=== PATIENT | male | born 1960 | race Caucasian/White ===

== ENCOUNTER → 2019-01-15 | Outpatient (CLI) | payer OTHER ==
[~2019-01-15] MED LIST: ATEN1TAB PO; CATHETER FLUSH 10 ML SYR IV PRN
[2019-01-15 08:07] VITALS: BP 159/87
[2019-01-15 08:11] VITALS: BP 177/87
[2019-01-15 08:16] VITALS: BP 165/92
[2019-01-15 08:17] VITALS: BP 189/99
[2019-01-15 08:20] VITALS: BP 178/99
--- NOTE | 2019-01-15 14:50 | STRESS TEST ---
DATE OF SERVICE: 01/15/2019 NUCLEAR MYOVIEW REPORT REFERRING PHYSICIAN: Brock Clark DO. In summary, the patient was injected with 9.99 mCi of technetium-99 Myoview and the resting images were obtained, with peak stress level, a stress dose of 30.7 mCi of technetium-99 Myoview were injected and the stress images were acquired. The resting and stress images were reviewed and compared in the short axis, horizontal long axis, and vertical long axis views. Review of the images showed diaphragmatic attenuation affecting the quality of the images. There is questionable reversible ischemia involving the mid to apical anterolateral and inferolateral wall. SSS is 8, SDS 6, and TID value 0.93. On the gated images, the left ventricle appeared to be in normal size with normal contractility. Calculated ejection fraction is 67%. CONCLUSION: 1. The patient tolerated Lexiscan well. 2. Diaphragmatic attenuation with questionable ischemia involving the mid to apical anterolateral and inferolateral cortez. 3. Normal left ventricular size with normal contractility. Calculated ejection fraction is 67%. 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
== END ==
LOC: CARD 06:38
PROVIDERS: ATTEND Internal Medicine
DX: I25.10 Atherosclerotic heart disease of native coronary artery without angina pectoris (principal)
CPT/HCPCS: 78452; 93017

== ENCOUNTER 2019-02-14 06:52 | Day surgery (SDC) | payer OTHER ==
[~2019-02-14] VITALS: Ht 180.3 cm; Wt 113.4 kg
[2019-02-14] VITALS (10 sets, daily range): BP systolic 117–162; BP diastolic 82–106
[~2019-02-14 06:52] MED LIST changes: -CATHETER FLUSH 10 ML SYR IV PRN
--- OUTSIDE RECORDS SUMMARY | 2019-02-14 06:57 | XMS REPORT | Continuity of Care Document ---
Author Author [facility] Organization [facility] Address Unknown Phone Unavailable Allergies Active Description Code Type Severity Reaction Onset Reported/Identified Relationship to Patient Clinical Status Yes No Known Drug Allergies [id number] Drug Allergy Unknown N/A 07/31/2014 Medications There is no data. Problems Date Dx Coded Attending Type Code Diagnosis Diagnosed By 08/22/2014 SONALI CANCHOLA DO Ot 726.32 LATERAL EPICONDYLITIS 08/22/2014 SONALI CANCHOLA DO Ot V57.21 ENCOUNTER FOR OCCUPATIONAL THERAPY 12/25/2014 CARLOS GODFREY MD Ot 401.9 HYPERTENSION NOS 12/25/2014 CARLOS GODFREY MD Ot 455.0 INT HEMORRHOID W/O COMPL 12/25/2014 CARLOS GODFREY MD Ot 455.3 EXT HEMORRHOID W/O COMPL 12/25/2014 CARLOS GODFREY MD Ot 562.10 DIVERTICULOSIS COLON (W/O MENT OF HEMORR 12/25/2014 CARLOS GODFREY MD Ot V76.51 SCREEN MAL NEOP-COLON 01/11/2019 CARLOS GODFREY MD Ot V72.84 EXAM PRE-OPERATIVE NOS 01/16/2019 MILLA CENTENO DO Ot I25.10 ATHSCL HEART DISEASE OF [place] CORONARY 02/07/2019 CARLOS GODFREY MD Ot V72.84 EXAM PRE-OPERATIVE NOS 02/07/2019 MILLA CENTENO DO Ot I25.10 ATHSCL HEART DISEASE OF [place] CORONARY Procedures There is no data. Results There is no data. Encounters ACCT No. Visit Date/Time Discharge Status Pt. Type Provider Facility Loc./Unit Complaint [id number] 01/15/2019 06:38:00 01/15/2019 23:59:59 CLS Outpatient MILLA CENTENO DO [facility] CARD ARTERIOSCLEROTIC HEART DISEASE [id number] 12/25/2014 08:26:00 12/25/2014 11:22:00 DIS Outpatient CARLOS GODFREY MD [facility] SDC SCREENING [id number] 12/18/2014 05:54:00 12/18/2014 23:59:59 CLS Outpatient CARLOS GODFREY MD [facility] PREOP SCREENING [id number] 08/15/2014 12:59:00 08/22/2014 13:49:00 DIS Outpatient SONALI CANCHOLA DO [facility] REHAB LEFT LATERAL EPICONDYLITIS [id number] 02/14/2019 08:00:00 PEN Preadmit MARGIE ROYAL, LAURENCE Arreguin [facility] CATH ABN STRESS,CAD,HTN [id number] 12/25/2014 15:55:00 ACT Document Registration
[2019-02-14] MEDS ORDERED: LIDOCAINE 1% INJ 20 ML 20 ML VIAL ONE (06:58)
[2019-02-14] MEDS ORDERED: HEParin 1000 UNIT/ML (10ML VIAL) FOR BOLUS ONE (06:58)
[2019-02-14] MEDS ORDERED: NS IV 1000 ML 1,000 ML IV SCH ×2 (07:00→08:44)
[2019-02-14 07:24] LABS: HEMOGLOBIN 15.6 G/DL (13.3-17.7); MEAN PLATELET VOLUME 9.7 FL (7.4-10.4); RED CELL DISTRIBUTION WIDTH 13.5 % (10.0-14.5); WHITE BLOOD COUNT 7.2 10^3/uL (4.3-11.0)
[2019-02-14 07:26] LABS: BILIRUBIN,URINE NEGATIVE (NEGATIVE); CLARITY,URINE CLEAR; COLOR,URINE YELLOW; GLUCOSE, URINE (UA) NEGATIVE (NEGATIVE); KETONES,URINE NEGATIVE (NEGATIVE); LEUKOCYTE ESTERASE ,URINE 1+ (NEGATIVE); NITRITE,URINE NEGATIVE (NEGATIVE); PH,URINE 6.5 (5-9); PROTEIN,URINE 2+ (NEGATIVE); UROBILINOGEN,URINE 1 MG/DL (NORMAL)
--- NOTE | 2019-02-14 07:27 | Diagnostic Imaging Report ---
INDICATION: Preop. FINDINGS: Portable chest. Lungs are well-aerated and clear. Heart not enlarged. There is no pulmonary edema. No hilar adenopathy. No pneumothorax or pleural effusion. No bony abnormalities. IMPRESSION: Normal portable chest. Dictated by: Dictated on workstation # [id number]
[2019-02-14] MEDS ORDERED: METF-397 PO (07:29)
[2019-02-14] MEDS ORDERED: ATORVASTATIN 5 MG PO (07:29)
[2019-02-14] MEDS ORDERED: MIDAZOLAM 5 MG/5 ML (VERSED) VIAL ONE (07:43)
[2019-02-14] MEDS ORDERED: fentaNYL INJECTION 100 MCG/2 ML AMP ONE (07:44)
[2019-02-14 07:45] LABS: INR 0.9 (0.8-1.4); PROTHROMBIN TIME PATIENT 12.8 SEC (12.2-14.7)
[2019-02-14 07:49] LABS: BACTERIA,URINE NEGATIVE /HPF; SQUAMOUS EPITHELIAL CELL,UR RARE /HPF; WBC,URINE RARE /HPF
[2019-02-14 07:49] LABS: ALANINE AMINOTRANSFERASE 33 U/L (0-55); ALBUMIN 4.4 GM/DL (3.2-4.5); ALKALINE PHOSPHATASE 75 U/L (40-136); BILIRUBIN,TOTAL 0.9 MG/DL (0.1-1.0); BUN/CREATININE RATIO 11; CALCIUM 9.6 MG/DL (8.5-10.1); CARBON DIOXIDE 28 MMOL/L (21-32); CHLORIDE 98 MMOL/L (98-107); CHOLESTEROL 144 MG/DL (< 200); CREATININE SERUM 0.87 MG/DL (0.60-1.30); GFR ESTIMATED > 60; GLUCOSE 115 MG/DL (70-105); HDL CHOLESTEROL 40 MG/DL (40-60); SODIUM 137 MMOL/L (135-145); TOTAL PROTEIN 8.1 GM/DL (6.4-8.2); TRIGLYCERIDES 162 MG/DL (<150); VLDL CHOLESTEROL 32 MG/DL (5-40)
[2019-02-14 07:50] LABS: POTASSIUM 4.1 MMOL/L (3.6-5.0)
--- NOTE | 2019-02-14 07:55 | Cardiac Procedure Note-CS/ASA ---
Pre-Procedure Note Pre-Op Procedure Note H&P Reviewed The H&P was reviewed, patient examined and no changes noted. Date H&P Reviewed: Feb 14, 2019 Time H&P Reviewed: 07:55 Conscious Sedation Pre-Proced Time 07:55 ASA Score 3 For ASA 3 and 4: Consider anesthesia and medical clearance. Also, for patients with a history of failed moderate sedation consider anesthesia. Airway Lungs Heart ASA score ASA 1: a normal healthy patient ASA 2: a patient with a mild systemic disease (mid diabetes, controlled hypertension, obesity x ASA 3: a patient with a severe systemic disease that limits activity (angina , COPD, prior Myocardial infarction) ASA 4: a patient with an incapacitating disease that is a constant threat to life (CHF, renal failure) ASA 5: a moribund patient not expected to survive 24 hrs. (ruptured aneurysm) ASA 6: a declared brain- patient whose organs are being harvested. For emergent operations, add the letter E after the classification Mallampati Classification Grade 3 Sedation Plan Analgesia, Amnesia, Plan communicated to team members, Discussed options with patient/fam, Discussed risks with patient/fam The patient is an appropriate candidate to undergo the planned procedure, sedation, and anesthesia. The patient immediately re-assessed prior to indication. LAURENCE HANSON MD Feb 14, 2019 07:55
[2019-02-14] MEDS ORDERED: PATIENT MAY USE OWN MEDS, ALL PO SCH (08:45)
[2019-02-14] MEDS ORDERED: ASPI-983 PO (08:46)
--- NOTE | 2019-02-14 08:48 | Discharge Inst-Post CATH ---
Discharge Inst-CATH/EP Post Cardiac Cath/EP D/C Inst Follow Up/Plan Hold Metformin for [address] Worthington's office in 2-4 weeks CARDIAC CATH DISCHARGE INSTRUCTIONS *Hold Metformin for 48 hours post heart cath. ACTIVITY * Go Home directly and rest. * Limit activity of the leg (or wrist if it was used) for 7 days including aerobics, swimming, jogging, bicycling, etc. * Restrict stair-climbing for 7 days if possible, if not, climb up with your non -cath leg, then bring together on the same step. * Avoid lifting, pushing, pulling or excessive movement of the affected extremity for 7 days. * Customary sexual activity may be resumed after 2 days-use caution not to use a position that strains or causes pain to the affected extremity. * No driving for 24 hours. * NO SMOKING. * Avoid straining for bowel movements for 7 days. * Gentle walking on level ground is allowed. * Returning to work will depend on the type of procedure and the results. Your doctor will discuss this with you. CALL YOUR DOCTOR FOR ANY OF THE FOLLOWING: *If bleeding from the puncture site occurs- Apply gentle pressure to site with clean cloth and call your doctor or EMS. * If a knot or lump forms under the skin, increases in size, or causes pain. * If bruising appears to be worsening or moving further down your leg instead of disappearing. * Temperature above 101 F. CARE OF YOUR GROIN INCISION; * Bruising or purple discoloration of the skin near the puncture site is common. * You may shower only, no bathtub bathing for 5 days. Be careful to avoid slipping as your leg may feel stiff. * If a closure device was used on your femoral artery, please see the attached guide regarding care of the device and your leg. * Leave the dressing on, until removed by office staff. CARE OF YOUR WRIST INCISION; * Bruising or purple discoloration of the skin near the puncture site is common. * You may shower. * DO NOT submerge wrist. * Leave dressing on, until removed by office staff.. LAURENCE WORTHINGTON MD Feb 14, 2019 08:48
--- NOTE | 2019-02-14 08:53 | Cardiac Cath Report ---
Cardiac Cath Report Physician (s)/Mate Chief (s) Physician LAURENCE HANSON MD Pre-Procedure Diagnosis Pre-Procedure Diagnosis: coronary artery disease Post-Procedure Note Procedure Start Date: Feb 14, 2019 Name of Procedure: left heart catheterization Aortic root angiogram Findings/Procedure Note PROCEDURE NOTE: 58 years old gentleman with history of diabetes mellitus, hyperlipidemia, had an abnormal stress test and scheduled for cardiac catheterization possible PTCA. After explaining the procedure to the patient, all pros and cons were explained , all questions were answered. The patient signed the consent and then he was placed on the cardiac catheterization laboratory. Groin was prepped SL fashion local anesthesia was used. Sheath placed in the right femoral artery. Ta right and left catheter were used to access the coronary system, I had difficulty accessing the right coronary artery, I tried [place] catheter then I reshaped the JR catheter and was able to have subselection of the right coronary artery and angiogram was done. Pigtail was used to access the left ventricular cavity, pullback was done, aortic root angina gram was done. Left ventriculogram was not done, pressure was measured Aortic root angiogram was done At the end of the procedure the sheath was removed. 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 with mild diffuse ectasia at the proximal and midportion with slow flow in the LAD and diagonal system Left Circumflex has mild ectasia with slow flow in the circumflex artery Right Coronory Artery has posterior takeoff required multiple catheterization with catheter modification to be able to evaluate the right coronary artery there is diffuse ectasia in the right coronary artery with slow flow, nonobstructive disease LV Gram was not done pressure was measured Aorta evaluation done with aortic root angiogram which showed normal aortic valve, and normal aortic root and ascending aorta, no dissection or aneurysm CONCLUSION: 1. 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 Normal left ventricular end-diastolic pressure 3. Normal aortic root DISCUSSION AND RECOMMENDATION: Due to the coronary ectasia and the slow flow in the coronary system I recommend aggressive management with lifestyle modification, exercise, keeping LDL under tight control and I started the patient on aspirin Anesthesia Type: Conscious Sedation Estimated blood loss (mL): 15 ml Contrast Amount: 107 ml Total Radiation Dose: 1285 mGy Post-Procedure Diagnosis Post-operative diagnosis: Coronary artery disease Diabetes mellitus Hyperlipidemia Chest pain nonspecific etiology LAURENCE HANSON MD Feb 14, 2019 08:53
== END 2019-02-14 13:25 | disposition home or self-care (01) ==
LOC: CATH 06:52 → SDC 09:08 → CATH 13:25
PROVIDERS: ATTEND Internal Medicine Cardiovascular Disease
DX: I25.10 Atherosclerotic heart disease of native coronary artery without angina pectoris (principal); E11.9 Type 2 diabetes mellitus without complications; E78.2 Mixed hyperlipidemia; R07.9 Chest pain, unspecified; I10 Essential (primary) hypertension; E66.9 Obesity, unspecified; Z82.49 Family history of ischemic heart disease and other diseases of the circulatory system; Z68.34 Body mass index [BMI] 34.0-34.9, adult
CPT/HCPCS: 36415; 71045; 80053; 80061; 81000; 85027; 85610; 85730; 87081; 93458; 93567

== ENCOUNTER 2019-09-09 08:59 | Emergency (ER) | payer OTHER ==
[~2019-09-09] VITALS: Ht 180.3 cm; Wt 113.6 kg
[~2019-09-09 08:59] MED LIST changes: +ASPI-983 PO; +ATORVASTATIN 5 MG PO; +METF-397 PO
[2019-09-09] MEDS ORDERED: LACTATED RINGERS 1,000 ML IV ONE (09:13)
[2019-09-09] MEDS ORDERED: MECLIZINE 25 MG (ANTIVERT) TAB PO ONE (09:15)
[2019-09-09] MEDS ORDERED: ONDANSETRON 4 MG/2 ML (SDV) Z0FRAN IVP ONE (09:15)
[2019-09-09 09:20] LABS: BASOPHILS # (AUTO) 0.1 10^3/uL (0.0-0.1); BASOPHILS % (AUTO) 1 % (0-10); EOSINOPHILS # (AUTO) 0.6 10^3/uL (0.0-0.3); EOSINOPHILS % (AUTO) 6 % (0-10); HEMATOCRIT 41 % (40-54); HEMOGLOBIN 14.5 G/DL (13.3-17.7); LYMPHOCYTES # (AUTO) 4.2 X 10^3 (1.0-4.0); LYMPHOCYTES % (AUTO) 42 % (12-44); MEAN CORPUSCULAR HEMOGLOBIN 31 PG (25-34); MEAN CORPUSCULAR HGB CONC 36 G/DL (32-36); MEAN CORPUSCULAR VOLUME 87 FL (80-99); MEAN PLATELET VOLUME 9.7 FL (7.4-10.4); MONOCYTES # (AUTO) 0.9 X 10^3 (0.0-1.0); MONOCYTES % (AUTO) 9 % (0-12); NEUTROPHILS # (AUTO) 4.2 X 10^3 (1.8-7.8); NEUTROPHILS % (AUTO) 42 % (42-75); PLATELET COUNT 299 10^3/uL (130-400); RED CELL DISTRIBUTION WIDTH 13.2 % (10.0-14.5)
--- NOTE | 2019-09-09 09:27 | ED General ---
General Chief Complaint: Dizziness/Syncope Stated Complaint: DIZZY Source of Information: Patient, EMS, Family Exam Limitations: No Limitations History of Present Illness Date Seen by Provider: Sep 09, 2019 Time Seen by Provider: 09:04 Initial Comments Here with report of waking up at 8:30 AM with severe dizziness that was associated with nausea. Denies breathing problems, chest pain or weakness anywhere. Does have history of hypertension and high cholesterol and he reports that he is prediabetic. Reports taking medications as directed. He follows with Dr. Worthington. Apparently he had heart catheter earlier this year that did not show any blockage but did have significantly slow flow and ectasia throughout. This is requiring medical management that is being followed by Dr. Worthington. He denies dysuria or diarrhea. Last known well time last night when he went to bed around 10 PM. Does report 2 to three-week recent URI with cough Timing/Duration: 1/2 Hour, Other (LKW time 10 PM) Severity: Moderate Associated Systoms: No Chest Pain, No Cough; Diaphoresis; No Fever/Chills; Nausea/Vomiting; No Shortness of Air, No Weakness Allergies and Home Medications Allergies Coded Allergies: No Known Drug Allergies (Unverified , 07/31/14) Home Medications Aspirin 81 Mg Tablet., 81 MG PO DAILY Prescribed by: LAURENCE WORTHINGTON on 02/14/19 0846 Atenolol/Chlorthalidone 1 Tab Tablet, 1 TAB PO DAILY, (Reported) Metformin HCl 500 Mg Tablet, 500 MG PO DAILY, (Reported) [Atorvastatin Ca 5MG] , 5 MG PO DAILY, (Reported) Patient Home Medication List Home Medication List Reviewed: Yes Review of Systems Review of Systems Constitutional: see HPI; No chills, No fever EENTM: No nose congestion, No throat pain Respiratory: cough; No short of breath Cardiovascular: No chest pain, No edema Gastrointestinal: see HPI; No abdominal pain; nausea, vomiting Genitourinary: no symptoms reported Musculoskeletal: no symptoms reported Skin: no symptoms reported Psychiatric/Neurological: See HPI; Denies Headache, Denies Weakness All Other Systems Reviewed Negative Unless Noted: Yes Past Bhmleil-Ydxdsk-Coidqi Hx Past Med/Social Hx: Reviewed Nursing Past Med/Soc Hx Patient Social History Alcohol Use: Denies Use Recreational Drug Use: No Smoking Status: Never a Smoker 2nd Hand Smoke Exposure: No Recent Foreign Travel: No Contact w/Someone Who Travel: No Recent Hopitalizations: No Past Medical History Surgeries: No Respiratory: No Currently Using CPAP: No Currently Using BIPAP: No Cardiac: Yes Hypertension Neurological: No Genitourinary: No Gastrointestinal: No Cancer: No Psychosocial: Yes Family Medical History Reviewed Nursing Family Hx Physical Exam Vital Signs Vital Signs - First Documented 09/09/19 09/09/19 08:59 09:27 Temp 36.0 Pulse 68 Resp 18 B/P (MAP) 168/94 (118) Pulse Ox 96 O2 Delivery Nasal Cannula O2 Flow Rate 2.00 Capillary Refill : Height, Weight, BMI Height: 5'11.00" Weight: 250lbs. 0.0oz. 113.287630oz; 34.9 BMI Method: General Appearance: No Apparent Distress, WD/WN HEENT: PERRL/EOMI, Pharynx Normal, Other (no significant persistent nystagmus) Neck: Non Tender, Supple Respiratory: Lungs Clear, Normal Breath Sounds Cardiovascular: Regular Rate, Rhythm, No Murmur Gastrointestinal: Non Tender, Soft Back: Normal Inspection, No CVA Tenderness, No Vertebral Tenderness Extremity: Normal Range of Motion, Non Tender Neurologic/Psychiatric: Alert, Oriented x3 Skin: Normal Color, Warm/Dry Progress/Results/Core Measures Suspected Sepsis SIRS Temperature: Pulse: Respiratory Rate: Laboratory Tests 09/09/19 09:03: White Blood Count 10.0 Blood Pressure / Mean: Laboratory Tests 09/09/19 09:03: Creatinine 0.84, Platelet Count 299, Total Bilirubin 0.5 09/09/19 09:23: INR Comment 0.9 Results/Orders Lab Results Laboratory Tests Test 09/09/19 09:03 09/09/19 09:23 09/09/19 09:31 09/09/19 10:51 Range/Units White Blood Count 10.0 4.3-11.0 10^3/uL Red Blood Count 4.67 4.35-5.85 10^6/uL Hemoglobin 14.5 13.3-17.7 G/DL Hematocrit 41 40-54 % Mean Corpuscular Volume 87 80-99 FL Mean Corpuscular Hemoglobin 31 25-34 PG Mean Corpuscular Hemoglobin Concent 36 32-36 G/DL Red Cell Distribution Width 13.2 10.0-14.5 % Platelet Count 299 130-400 10^3/uL Mean Platelet Volume 9.7 7.4-10.4 FL Neutrophils (%) (Auto) 42 42-75 % Lymphocytes (%) (Auto) 42 12-44 % Monocytes (%) (Auto) 9 0-12 % Eosinophils (%) (Auto) 6 0-10 % Basophils (%) (Auto) 1 0-10 % Neutrophils # (Auto) 4.2 1.8-7.8 X 10^3 Lymphocytes # (Auto) 4.2 H 1.0-4.0 X 10^3 Monocytes # (Auto) 0.9 0.0-1.0 X 10^3 Eosinophils # (Auto) 0.6 H 0.0-0.3 10^3/uL Basophils # (Auto) 0.1 0.0-0.1 10^3/uL Sodium Level 137 135-145 MMOL/L Potassium Level 3.4 L 3.6-5.0 MMOL/L Chloride Level 98 98-107 MMOL/L Carbon Dioxide Level 26 21-32 MMOL/L Anion Gap 13 5-14 MMOL/L Blood Urea Nitrogen 12 7-18 MG/DL Creatinine 0.84 0.60-1.30 MG/DL Estimat Glomerular Filtration Rate > 60 BUN/Creatinine Ratio 14 Glucose Level 177 H 70-105 MG/DL Calcium Level 9.3 8.5-10.1 MG/DL Corrected Calcium 9.1 8.5-10.1 MG/DL Total Bilirubin 0.5 0.1-1.0 MG/DL Aspartate Amino Transf (AST/SGOT) 27 5-34 U/L Alanine Aminotransferase (ALT/SGPT) 35 0-55 U/L Alkaline Phosphatase 63 40-136 U/L Troponin I < 0.028 <0.028 NG/ML Total Protein 7.1 6.4-8.2 GM/DL Albumin 4.2 3.2-4.5 GM/DL Prothrombin Time 12.4 12.2-14.7 SEC INR Comment 0.9 0.8-1.4 Activated Partial Thromboplast Time 25 24-35 SEC D-Dimer < 0.27 0.00-0.49 UG/ML Glucometer 177 H 70-110 MG/DL Urine Color YELLOW Urine Clarity CLEAR Urine pH 8 5-9 Urine Specific Pearce 1.010 L 1.016-1.022 Urine Protein 2+ H NEGATIVE Urine Glucose (UA) NEGATIVE NEGATIVE Urine Ketones NEGATIVE NEGATIVE Urine Nitrite NEGATIVE NEGATIVE Urine Bilirubin NEGATIVE NEGATIVE Urine Urobilinogen NORMAL NORMAL MG/DL Urine Leukocyte Esterase NEGATIVE NEGATIVE Urine RBC (Auto) NEGATIVE NEGATIVE Urine RBC NONE /HPF Urine WBC NONE /HPF Urine Crystals NONE /LPF Urine Bacteria FEW H /HPF Urine Casts NONE /LPF Urine Mucus NEGATIVE /LPF Urine Culture Indicated NO My Orders Orders - ARIA GARCIA MD Cbc With Automated Diff (09/09/19 09:12) Protime With Inr (09/09/19 09:12) Partial Thromboplastin Time (09/09/19 09:12) Comprehensive Metabolic Panel (09/09/19 09:12) Fibrin Degradation Products (09/09/19 09:12) Troponin I (09/09/19 09:12) Ua Culture If Indicated (09/09/19 09:12) Chest 1 View, Ap/Pa Only (09/09/19 09:12) Ekg Tracing (09/09/19 09:12) Nothing By Mouth (09/09/19 Lunch) Accucheck Stat ONCE (09/09/19 09:12) Ed Iv/Invasive Line Start (09/09/19 09:12) Vital Signs Stroke Patient Q15M (09/09/19 09:12) Ct Head Wo-R/O Stroke (09/09/19 09:12) O2 (09/09/19 09:12) Intake & Output 06,14,22 (09/09/19 09:12) Monitor-Rhythm Ecg Trace Only (09/09/19 09:12) Dysphagia Screening Tool (09/09/19 09:12) Lipid Panel (09/10/19 06:00) Meclizine Tablet (Antivert Tablet) (09/09/19 09:15) Ondansetron Injection (Zofran Injectio (09/09/19 09:15) Ed Iv/Invasive Line Start (09/09/19 09:13) Lactated Ringers (Lr 1000 Ml Iv Solution (09/09/19 09:13) Ct Angio Head/Neck (09/09/19 10:06) Iohexol Injection (Omnipaque 350 Mg/Ml 1 (09/09/19 10:15) Received Contrast (Hold Metformin- Contr (09/09/19 10:15) Sodium Chloride Flush (Catheter Flush Sy (09/09/19 10:15) Ns (Ivpb) (Sodium Chloride 0.9% Ivpb Bag (09/09/19 10:15) Dexamethasone Injection (Decadron Inject (09/09/19 12:00) Medications Given in ED Current Medications Medications Dose Ordered Sig/Michelle Route Start Time Stop Time Status Last Admin Dose Admin Iohexol 100 ml ONCE ONCE IV 09/09/19 10:15 09/09/19 10:16 DC 09/09/19 10:28 75 ML Lactated Ringer's 1,000 ml @ 0 mls/hr Q0M ONCE IV 09/09/19 09:13 09/09/19 09:15 DC 09/09/19 09:22 1,000 MLS/HR Meclizine HCl 25 mg ONCE ONCE PO 09/09/19 09:15 09/09/19 09:16 DC 09/09/19 09:22 25 MG Ondansetron HCl 4 mg ONCE ONCE IVP 09/09/19 09:15 09/09/19 09:16 DC 09/09/19 09:21 4 MG Sodium Chloride 10 ml NEEDED PRN IV 09/09/19 10:15 09/09/19 10:28 10 ML Sodium Chloride 100 ml ONCE ONCE IV 09/09/19 10:15 09/09/19 10:16 DC 09/09/19 10:29 80 ML Vital Signs/I&O 09/09/19 09/09/19 08:59 09:27 Temp 36.0 Pulse 68 Resp 18 B/P (MAP) 168/94 (118) Pulse Ox 96 O2 Delivery Nasal Cannula Nasal Cannula O2 Flow Rate 2.00 2.00 Capillary Refill : Progress Note : Progress Note Seen and evaluated. IV, labs, EKG, chest x-ray and CT head ordered with the [facility] order set. Stroke scale is 0. No indications of TPA currently due to 0 on stroke scale as well as last known well time 10 PM last night. Orders for normal saline 1 L bolus, Zofran 4 mg IV and meclizine 25 mg by mouth after dysphagia screening is passed. Monitor patient. 1015: Doing a little better. We will go ahead and get CT angiogram of the head and neck to rule out vascular concerns and related issues for the dizziness, specifically posterior circulation. This was discussed with patient and family who agree. Monitor patient. 1150: CT angiogram completed and shows no acute findings. Patient is doing much better. He is able to move his head left and right and up and down without setting of significant dizziness. Overall is feeling better. Given the negative workup to this point, this may be more related to inner ear infection. We will go ahead and give Decadron 10 mg IV given that he's had the recent bronchitis. Discharged home with return precautions. Patient and family verbalize understanding instructions and agreement with plan. ECG Initial ECG Impression Date: Sep 09, 2019 Initial ECG Impression Time: 09:03 Initial ECG Rate: 63 Initial ECG Rhythm: Normal Sinus Comment Sinus rhythm with incomplete right bundle branch block. Normal axis. No evidence of ST elevation MO. No previous available for comparison. Interpreted by me. Diagnostic Imaging Diagonstic Imaging: CT Plain Films/CT/US/NM/MRI: head Comments [facility] [place] [place] NAME: WILLIAMRAMA W MED REC#: [id number] PT STATUS: REG ER : 1960 PHYSICIAN: ARIA GARCIA MD ADMIT DATE: 09/09/19/ER Draft Date of Exam:09/09/19 CT HEAD WO-R/O STROKE PROCEDURE: CT head wo r/o stroke. TECHNIQUE: Multiple contiguous axial images were obtained through the brain without the use of intravenous contrast. Auto Exposure Controls were utilized during the CT exam to meet ALARA standards for radiation dose reduction. INDICATION: Dizziness FINDINGS: The ventricles are normal in size, shape and position. There is no acute parenchymal hemorrhage, edema or mass. There is no extra-axial mass or hemorrhage. IMPRESSION: No acute abnormality is seen. Dictated on workstation # [id number] Dict: 09/09/1952 Trans: 09/09/19 0955 [facility] [phone] Interpreted by: MATT GUEVARA MD Electronically signed by: Diagonstic Imaging: Xray Plain Films/CT/US/NM/MRI: chest Comments [facility] [place] NAME: THOMASRAMA MED REC#: [id number] PT STATUS: REG ER : 1960 PHYSICIAN: ARIA GARCIA MD ADMIT DATE: 09/09/19/ER Draft Date of Exam:09/09/19 CHEST 1 VIEW, AP/PA ONLY INDICATION: Dizziness FINDINGS: Upright portable chest shows normal heart size and vascularity. The lungs are clear. There is no effusion or pneumothorax. There is no bony abnormality. IMPRESSION: Normal chest with no change from 02/14/2019. Dictated on workstation # [id number] Dict: 09/09/19953 Trans: 09/09/19954 [facility] [id number] Interpreted by: MATT GUEVARA MD Electronically signed by: Diagonstic Imaging: CT Plain Films/CT/US/NM/MRI: other Comments NAME: RAMA THOMAS [facility] REC#: [id number] PT STATUS: REG ER : 1960 PHYSICIAN: ARIA GARCIA MD ADMIT DATE: 09/09/19/ER Signed Date of Exam: 09/09/19 CT ANGIO HEAD/NECK PROCEDURE: CT angiography of the head and CT angiography of the neck with and without contrast. TECHNIQUE: Contiguous noncontrast images were obtained from the skull base through the vertex. After intravenous contrast administration, helical CT angiography of the neck was performed. Source data was reformatted into 3D MIP projections. Delayed post contrast acquisition was also obtained. Auto Exposure Controls were utilized during the CT exam to meet ALARA standards for radiation dose reduction. INDICATION: Dizziness COMPARISON: Noncontrast CT head of earlier same day FINDINGS: CTA NECK: Aorta: Aortic arch is normal, with standard three vessel branching pattern. Anterior Circulation: The origin of the bilateral common carotid arteries are patent. No stenosis of the common carotid arteries in the neck. No significant stenosis of the internal carotid arteries per NASCET criteria. The cervical segments of the bilateral ICAs are patent. The proximal external carotid arteries are patent and without significant stenosis. Posterior Circulation: Origins of the bilateral vertebral arteries are normal. Vertebral arteries are co-dominant. The proximal extraosseous, intraosseous, and distal extraosseous segments of the vertebral arteries are patent without dissection or stenosis. Non-vascular: No cervical lymphadenopathy. The airway is patent. No evidence of mucosal-based mass lesion in the pharynx. Thyroid is normal. Salivary glands are normal. No concerning lesion in the cervical spine. Mild degenerative disc disease in the cervical spine. CTA HEAD: Anterior Circulation: The distal internal carotid arteries are patent. The bilateral M1 and M2 segments of the middle cerebral arteries are patent and without stenosis. The bilateral M3 and M4 segments are symmetric in size and number. The anterior cerebral arteries are patent and without stenosis. Anterior communicating artery is patent. No saccular aneurysm in the anterior circulation. Posterior Circulation: The bilateral intracranial segments of the vertebral arteries are patent. The basilar artery is patent and without stenosis. The posterior cerebral arteries are patent. Bilateral posterior communicating arteries are patent and without aneurysm. No saccular aneurysm in the posterior circulation. Post Contrast Head: No pathologic enhancement on delayed post-contrast enhancement. IMPRESSION: 1. No intra-cranial large vessel or medium vessel occlusion. No intracranial aneurysm. 2. No arterial occlusion or stenosis in the major neck arteries. Specifically, there are no features of vertebral basilar insufficiency. Dictated by: Dictated on workstation # [id number] Dict: 09/09/19 1039 Trans: 09/09/19 1101 Interpreted by: PRICILLA EDMOND MD Electronically signed by: PRICILLA EDMOND MD 09/09/19 1101 Reviewed: Reviewed by Me Departure Impression Primary Impression: Dizziness Disposition: 01 HOME, SELF-CARE Condition: Improved Departure-Patient Inst. Decision time for Depature: 11:55 Referrals: MILLA CENTENO DO (PCP/Family) Primary Care Physician Patient Instructions: Vertigo (a Type of Dizziness) (DC), Meniere Disease Add. Discharge Instructions: All discharge instructions reviewed with patient and/or family. Voiced understanding. Take medication as prescribed. Follow-up with your DrAndrew in one to 2 days for recheck and further evaluation as needed. You may take [id number] meclizine 25 mg tablet, 1 tablet every 8 hours as needed for dizziness. You may take the prescribed ondansetron one tablet every 6 hours as needed for nausea or vomiting. Try to eat a normal diet. Drink plenty of fluids. Return for increa sing dizziness, persistent vomiting, weakness, difficulty with speech, facial droop, breathing problems, chest pain or other concerns as needed. Scripts Ondansetron (Ondansetron Odt) 4 Mg Tab.rapdis 4 MG PO Q6H PRN for NAUSEA/VOMITING, #12 TAB 0 Refills Prov: ARIA GARCIA MD 09/09/19 Work/School Note: Work Release Form Date Seen in the Emergency Department: Sep 09, 2019 Return to Work: Sep 11, 2019 Restrictions: No Restrictions Copy Copies To 1: MILLA CENTENO TIMOTHY D MD Sep 09, 2019 09:27
[2019-09-09 09:34] LABS: ALANINE AMINOTRANSFERASE 35 U/L (0-55); ALBUMIN 4.2 GM/DL (3.2-4.5); ALKALINE PHOSPHATASE 63 U/L (40-136); BILIRUBIN,TOTAL 0.5 MG/DL (0.1-1.0); BUN/CREATININE RATIO 14; CALCIUM 9.3 MG/DL (8.5-10.1); CARBON DIOXIDE 26 MMOL/L (21-32); CHLORIDE 98 MMOL/L (98-107); CREATININE SERUM 0.84 MG/DL (0.60-1.30); GFR ESTIMATED > 60; GLUCOSE 177 MG/DL (70-105); POTASSIUM 3.4 MMOL/L (3.6-5.0); SODIUM 137 MMOL/L (135-145); TOTAL PROTEIN 7.1 GM/DL (6.4-8.2)
[2019-09-09 09:43] LABS: INR 0.9 (0.8-1.4); PARTIAL THROMBOPLASTIN TIME 25 SEC (24-35); PROTHROMBIN TIME PATIENT 12.4 SEC (12.2-14.7)
--- NOTE | 2019-09-09 09:46 | NUR ---
BACK FROM CT
--- NOTE | 2019-09-09 09:50 | NUR ---
FLUIDS CON'T TO INFUSE AT BEDSIDE CON'T TO REPORTS HE IS STILL DIZZY,BUT NOT BAD
--- NOTE | 2019-09-09 09:56 | Diagnostic Imaging Report ---
PROCEDURE: CT head wo r/o stroke. TECHNIQUE: Multiple contiguous axial images were obtained through the brain without the use of intravenous contrast. Auto Exposure Controls were utilized during the CT exam to meet ALARA standards for radiation dose reduction. INDICATION: Dizziness FINDINGS: The ventricles are normal in size, shape and position. There is no acute parenchymal hemorrhage, edema or mass. There is no extra-axial mass or hemorrhage. IMPRESSION: No acute abnormality is seen. Dictated by: Dictated on workstation # [id number]
--- NOTE | 2019-09-09 09:56 | Diagnostic Imaging Report ---
INDICATION: Dizziness FINDINGS: Upright portable chest shows normal heart size and vascularity. The lungs are clear. There is no effusion or pneumothorax. There is no bony abnormality. IMPRESSION: Normal chest with no change from 02/14/2019. Dictated by: Dictated on workstation # [id number]
[2019-09-09 10:09] LABS: FIBRIN DEGRADATION PRODUCTS < 0.27 UG/ML (0.00-0.49)
[2019-09-09] MEDS ORDERED: CATHETER FLUSH 10 ML SYR IV PRN (10:15)
[2019-09-09] MEDS ORDERED: IOHEXOL 350 MG/ML 100 ML (OMNIPAQUE 350) VIAL IV ONE (10:15)
[2019-09-09] MEDS ORDERED: HOLD METFORMIN - RECEIVED CONTRAST 20 ML VIAL IV SCH (10:15)
[2019-09-09] MEDS ORDERED: NS 100 ML (IVPB) BAG IV ONE (10:15)
--- NOTE | 2019-09-09 10:16 | NUR ---
BACK TO CT FOR CT ANGIO OF HEAD AND NECK.
--- NOTE | 2019-09-09 10:41 | NUR ---
BACK FROM CT
--- NOTE | 2019-09-09 10:47 | Diagnostic Imaging Report ---
PROCEDURE: CT angiography of the head and CT angiography of the neck with and without contrast. TECHNIQUE: Contiguous noncontrast images were obtained from the skull base through the vertex. After intravenous contrast administration, helical CT angiography of the neck was performed. Source data was reformatted into 3D MIP projections. Delayed post contrast acquisition was also obtained. Auto Exposure Controls were utilized during the CT exam to meet ALARA standards for radiation dose reduction. INDICATION: Dizziness COMPARISON: Noncontrast CT head of earlier same day FINDINGS: CTA NECK: Aorta: Aortic arch is normal, with standard three vessel branching pattern. Anterior Circulation: The origin of the bilateral common carotid arteries are patent. No stenosis of the common carotid arteries in the neck. No significant stenosis of the internal carotid arteries per NASCET criteria. The cervical segments of the bilateral ICAs are patent. The proximal external carotid arteries are patent and without significant stenosis. Posterior Circulation: Origins of the bilateral vertebral arteries are normal. Vertebral arteries are co-dominant. The proximal extraosseous, intraosseous, and distal extraosseous segments of the vertebral arteries are patent without dissection or stenosis. Non-vascular: No cervical lymphadenopathy. The airway is patent. No evidence of mucosal-based mass lesion in the pharynx. Thyroid is normal. Salivary glands are normal. No concerning lesion in the cervical spine. Mild degenerative disc disease in the cervical spine. CTA HEAD: Anterior Circulation: The distal internal carotid arteries are patent. The bilateral M1 and M2 segments of the middle cerebral arteries are patent and without stenosis. The bilateral M3 and M4 segments are symmetric in size and number. The anterior cerebral arteries are patent and without stenosis. Anterior communicating artery is patent. No saccular aneurysm in the anterior circulation. Posterior Circulation: The bilateral intracranial segments of the vertebral arteries are patent. The basilar artery is patent and without stenosis. The posterior cerebral arteries are patent. Bilateral posterior communicating arteries are patent and without aneurysm. No saccular aneurysm in the posterior circulation. Post Contrast Head: No pathologic enhancement on delayed post-contrast enhancement. IMPRESSION: 1. No intra-cranial large vessel or medium vessel occlusion. No intracranial aneurysm. 2. No arterial occlusion or stenosis in the major neck arteries. Specifically, there are no features of vertebral basilar insufficiency. Dictated by: Dictated on workstation # [id number]
[2019-09-09 11:00] LABS: BILIRUBIN,URINE NEGATIVE (NEGATIVE); CLARITY,URINE CLEAR; COLOR,URINE YELLOW; GLUCOSE, URINE (UA) NEGATIVE (NEGATIVE); KETONES,URINE NEGATIVE (NEGATIVE); LEUKOCYTE ESTERASE ,URINE NEGATIVE (NEGATIVE); NITRITE,URINE NEGATIVE (NEGATIVE); PH,URINE 8 (5-9); PROTEIN,URINE 2+ (NEGATIVE)
--- NOTE | 2019-09-09 11:13 | NUR ---
TO ROOM AND FEMALE AT BEDSIED WARM BLANKET GIVEN.
[2019-09-09 11:25] LABS: BACTERIA,URINE FEW /HPF
--- NOTE | 2019-09-09 11:33 | NUR ---
DR GARCIA TO ROOM
[2019-09-09] MEDS ORDERED: DEXAMETHASONE 10 MG/ML (DECADRON) 1 ML VIAL IV ONE (12:00)
[2019-09-09] MEDS ORDERED: ONDA4TAB11 PO (12:01)
[2019-09-09 12:06] VITALS: BP 120/76
--- NOTE | 2019-09-09 12:06 | NUR ---
PATIENT SAT UP ON SIDE OF BED WITHOUT PROBLEM. DISCHARGE PER W/C
== END 2019-09-09 12:06 | disposition home or self-care (01) ==
LOC: EDUNIT# 08:59 → ER 09:00
DX: R42 Dizziness and giddiness (principal); I10 Essential (primary) hypertension; E78.00 Pure hypercholesterolemia, unspecified; Z79.82 Long term (current) use of aspirin; Z79.84 Long term (current) use of oral hypoglycemic drugs
CPT/HCPCS: 36415; 70450; 70496; 70498; 71045; 80053; 81000; 82962; 84484; 85025; 85379; 85610; 85730; 93005; 93041; 96361; 96374; 96375

== ENCOUNTER 2023-03-23 06:42 | Outpatient (CLI) | payer OTHER ==
[~2023-03-23] VITALS: Ht 177.8 cm; Wt 113.3 kg
[~2023-03-23 06:42] MED LIST changes: +ASPI-1238 PO; -ASPI-983 PO; +ONDA4TAB11 PO
[2023-03-23] MEDS ORDERED: ROSU5TAB13 PO (10:36)
== END 2023-03-23 10:39 | disposition home or self-care (01) ==
LOC: PREOP 06:42
PROVIDERS: ATTEND Surgery
DX: Z01.818 Encounter for other preprocedural examination (principal)

== ENCOUNTER 2023-03-30 11:48 | Day surgery (SDC) | payer OTHER ==
[~2023-03-30] VITALS: Ht 177 cm; Wt 113.3 kg
[~2023-03-30 11:48] MED LIST changes: +ROSU5TAB13 PO
[2023-03-30] MEDS ORDERED: LACTATED RINGERS 1,000 ML IV STA (11:53)
[2023-03-30] MEDS ORDERED: ONDANSETRON 4 MG/2 ML (SDV) Z0FRAN IVP PRN (12:00)
[2023-03-30] MEDS ORDERED: ONDANSETRON 4 MG (ZOFRAN) ORAL DISSOLVE TAB PO PRN (12:00)
[2023-03-30] MEDS ORDERED: LIDOCAINE JELLY 2% 6 ML SYRINGE MM PRN (12:00)
--- NOTE | 2023-03-30 12:00 | Progress Note-Pre Operative ---
Pre-Operative Progress Note Date of Available H&P: March 30, 2023 Date H&P Reviewed: March 30, 2023 Time H&P Reviewed: 11:30 History & Physical: No changes noted Pre-Operative Diagnosis: hx complicated diverticulitis CARLOS GODFREY MD March 30, 2023 12:00
--- NOTE | 2023-03-30 12:01 | Discharge Inst-Surgical ---
D/C Lap Instructions-BEKAH Follow Up Activity as tolerated High Fiber Diet 25g or more per day Avoid Alcohol, Caffeine, Spicy [place] and Acid foods. Drink 64 fluid oz or more of fluids per day. Symptoms to Report: Fever over 101 degree F, Nausea/Vomiting If any problems/questions: Contact your physician or go to Emergency Room CARLOS GODFREY MD March 30, 2023 12:01
[2023-03-30] MEDS ORDERED: PROPOFOL INJECTION 50 ML IV ONE (12:05)
[2023-03-30] MEDS ORDERED: MIDAZOLAM 2 MG/2 ML (VERSED) VIAL ONE (12:05)
[2023-03-30 12:12] VITALS: BP 148/99
[2023-03-30] MEDS ORDERED: LIDOCAINE JELLY 2% 6 ML SYRINGE ONE (12:15)
[2023-03-30 12:50] VITALS: BP 89/56
[2023-03-30 13:00] VITALS: BP 95/56
--- NOTE | 2023-03-30 13:06 | Progress Note-Post Operative ---
Post-Operative Progess Note Surgeon (s)/Director Of Spa And Guest Experience (s) Surgeon CARLOS GODFREY MD Director Of Spa And Guest Experience: none Pre-Operative Diagnosis hx complicated diverticulitis Post-Operative Diagnosis chronic stage 2 ext and int hemorrhoids, mod-severe sigmoid diverticulosis, diverticular purulence with no redness/erythema/colitis. Procedure & Operative Findings Date of Procedure 03/30/23 Procedure Performed/Findings colonoscopy Anesthesia Type get Estimated Blood Loss Estimated blood loss (mL): minimal Specimens/Packing Specimens Removed none CARLOS GODFREY MD March 30, 2023 13:06
[2023-03-30 13:31] VITALS: BP 95/56
--- NOTE | 2023-03-30 14:17 | Anesthesia-General Post-Op ---
MAC Patient Condition Mental Status/LOC: Same as Preop Cardiovascular: Satisfactory Nausea/Vomiting: Absent Respiratory: Satisfactory Pain: Controlled Complications: Absent Post Op Complications Complications None Follow Up Care/Instructions Patient Instructions None needed. Anesthesiology Discharge Order Discharge Order Patient is doing well, no complaints, stable vital signs, no apparent adverse anesthesia problems. No complications reported per nursing. ANGIE ALDANA CRNA March 30, 2023 14:17
--- NOTE | 2023-03-30 20:35 | OPERATIVE REPORT ---
DATE OF SERVICE: 03/30/2023 ATTENDING PRIMARY CARE PHYSICIAN: Dr. Brock Clark. PREOPERATIVE DIAGNOSES: History of complicated diverticulitis. POSTOPERATIVE DIAGNOSES: Chronic stage II external and internal hemorrhoids, gijlcabr-xi-pnmdta sigmoid diverticulosis with some mild purulence within some of the diverticula, no redness or erythema, likely consistent with a healing diverticulitis. No polyps or any neoplasms identified. PROCEDURE: Colonoscopy. SURGEON: Carlos Godfrey MD ANESTHESIA: Monitored anesthesia care. ESTIMATED BLOOD LOSS: Minimal. FINDINGS: Chronic stage II external and internal hemorrhoids, womyajur-lz-plamcg sigmoid diverticulosis with some mild purulence within some of the diverticula, no redness or erythema, likely consistent with a healing diverticulitis. No polyps or any neoplasms identified. DISPOSITION: The patient tolerated the procedure well. INDICATIONS: The patient is a 62-year-old male, who developed abdominal pain several weeks ago and the pain persisted and he went to see his physician, where an outpatient CT scan was performed, which showed a sigmoid diverticulitis with a microperforation and a small abscess, 1.7 cm in size. This was treated conservatively as an outpatient with oral antibiotics. He then underwent a repeat CT scan, which did show a slight worsening; however, clinically, he was feeling much better and was otherwise tolerating regular diet, having normal bowel movements and no fever, no chills. Another followup CT scan was performed on 03/07/2023, which showed no increase in size of the abscess and again, clinically asymptomatic. DESCRIPTION OF PROCEDURE: The patient was brought to the endoscopy suite and laid in the left lateral decubitus position. After adequate IV pain, sedative medications and monitored anesthesia care, a digital rectal examination was performed. Chronic stage II external and internal hemorrhoids were identified, not actively edematous nor inflamed and no bleeding. Normal sphincter tone was felt and there were no palpable masses. Prostate gland was palpable and appeared normal. The endoscope was then intubated into the anus, rectum gently insufflated. The endoscope was then advanced through the valves of Daniels of the rectum with no polyps or any neoplasms identified. The endoscope was then advanced through the sigmoid colon, where a nlforcts-rx-owflqi sigmoid diverticulosis identified. Some of the diverticulum did have some purulence within the diverticulum; however, there was no active redness or erythema surrounding any of the diverticulum, most likely, indicating resolution of the infection. The diverticulosis did proceed through the remainder of the sigmoid colon. We then proceeded through the remainder of the descending, transverse and ascending colon to the cecum, which were normal. There were no polyps or any neoplasms identified. The endoscope was then slowly withdrawn while taking a second look and suctioning of residual air with no additional findings. The patient tolerated the procedure well. We will recommend the necessary lifestyle and dietary accommodation, which would eventually encompass a high-fiber diet with at least 30 g of fiber daily as well as significant amounts of water to promote soft stools on a daily basis; however, due to the complicated nature of this diverticulitis, he will likely have further episodes of inflammation and we have already discussed the possibility of surgery, which would encompass a 1-stage sigmoid colon resection and anastomosis approximately a few weeks from this date. Due to the findings of the mild purulence, we will have him continue antibiotics up until the time of surgery. Job ID: [id number] DocumentID: [id number] Dictated Date: 03/30/2023 12:58:19 Crm Analyst Date: 03/30/2023 20:34:00 Dictated By: CARLOS GODFREY MD
== END 2023-03-30 13:41 | disposition home or self-care (01) ==
LOC: ENDO 11:48
PROVIDERS: ATTEND Surgery
DX: K57.20 Diverticulitis of large intestine with perforation and abscess without bleeding (principal); K64.4 Residual hemorrhoidal skin tags; K64.1 Second degree hemorrhoids; Z28.310 Unvaccinated for COVID-19
CPT/HCPCS: 82947

== ENCOUNTER 2023-04-07 08:08 | Outpatient (CLI) | payer OTHER ==
[~2023-04-07] VITALS: Ht 177.8 cm; Wt 113.6 kg
== END 2023-04-07 10:45 ==
LOC: PREOP 08:08
PROVIDERS: ATTEND Surgery
DX: Z01.818 Encounter for other preprocedural examination (principal); Z87.19 Personal history of other diseases of the digestive system

== ENCOUNTER 2023-04-14 10:30 | Inpatient (IN) | payer OTHER ==
[2023-04-14] VITALS (9 sets, daily range): BP systolic 110–142; BP diastolic 58–86
[~2023-04-14] VITALS: Ht 177.8 cm; Wt 117.2 kg
[2023-04-14] MEDS ORDERED: metroNIDAZOLE 500MG/100ML IVPB 100 ML IV ONE (12:15)
[2023-04-14] MEDS ORDERED: ceFAZolin INJECTION 2,000 MG in NS (IVPB) 50 ML IV ONE (12:15)
--- NOTE | 2023-04-14 12:37 | Progress Note-Pre Operative ---
Pre-Operative Progress Note Date H&P Reviewed: Apr 14, 2023 Time H&P Reviewed: 12:35 History & Physical: H&P Reviewed, Patient Examed, No changes noted Pre-Operative Diagnosis: Sigmoid diverticulosis with history of perforated diverticulitis BENNY MORA APRN Apr 14, 2023 12:37
[2023-04-14] MEDS: LACTATED RINGERS 1,000 ML IV PRN ×2 (12:38→19:22)
[2023-04-14] MEDS ORDERED: ONDANSETRON 4 MG/2 ML (SDV) Z0FRAN IVP PRN ×2 (13:00→19:00)
[2023-04-14] MEDS ORDERED: NALOXONE 0.4 MG/ML 1 ML (NARCAN) VIAL IV PRN (13:00)
[2023-04-14] MEDS ORDERED: NS IV 1000 ML 1,000 ML IV SCH (13:00)
[2023-04-14] MEDS ORDERED: fentaNYL PCA 1,000 MCG/100 ML 100 ML IV PRN (13:00)
[2023-04-14] MEDS ORDERED: BUP/EPI 0.25% 1:200,000 (MARCAINE) 30 ML VIAL ONE (14:06)
[2023-04-14] MEDS ORDERED: ONDANSETRON 4 MG/2 ML (SDV) Z0FRAN ONE (14:11)
[2023-04-14] MEDS ORDERED: proPOfol 200 MG/20 ML (DIPRIVAN) VIAL IV ONE (14:11)
[2023-04-14] MEDS ORDERED: fentaNYL INJ 100 MCG/2 ML AMP ONE (14:11)
[2023-04-14] MEDS ORDERED: SEVOFLURANE (ULTANE) 15 ML INHAL SOLN ONE ×2 (14:11→18:44)
[2023-04-14] MEDS ORDERED: LIDOCAINE PF 2% 5 ML (XYLOCAINE) VIAL ONE (14:11)
[2023-04-14] MEDS ORDERED: MIDAZOLAM 2 MG/2 ML (VERSED) VIAL ONE (14:12)
[2023-04-14] MEDS ORDERED: ROCURONIUM 50 MG/5 ML (ZEMURON) VIAL IV ONE (15:41)
[2023-04-14] MEDS ORDERED: NEOSTIGMINE (BLOXIVERZ ) 1 MG/1ML 10 ML VIAL ONE (18:20)
[2023-04-14] MEDS ORDERED: GLYCOPYRROLATE 0.2 MG/ML (ROBINUL) 2 ML VIAL ONE (18:20)
--- NOTE | 2023-04-14 18:43 | Progress Note-Post Operative ---
Post-Operative Progess Note Surgeon (s)/Personalized Living Assistant (s) Surgeon CARLOS GODFREY MD Personalized Living Assistant: laci valera [employer] Pre-Operative Diagnosis Sigmoid diverticulosis with history of perforated diverticulitis Post-Operative Diagnosis same Procedure & Operative Findings Date of Procedure 04/14/23 Procedure Performed/Findings laparoscopic low anterior colorectal resection and central line placement. Anesthesia Type get Estimated Blood Loss Estimated blood loss (mL): minimal Specimens/Packing Specimens Removed sigmoid colon CARLOS GODFREY MD Apr 14, 2023 18:43
[2023-04-14] MEDS ORDERED: MEPERIDINE (DEMEROL) INJ 50 MG/ML IVP ONE (19:00)
[2023-04-14] MEDS ORDERED: PROMETHAZINE INJ 25 MG/ML (PHENERGAN) AMP IVP ONE (19:00)
[2023-04-14] MEDS ORDERED: morphine INJ 10 MG/ML 1ML (SYR OR VIAL) IVP ONE (19:00)
[2023-04-14] MEDS ORDERED: HYDROmorphone 2 MG/ML VIAL (DILAUDID) IV ONE (19:00)
[2023-04-14] MEDS ORDERED: HYDROmorphone 2 MG/ML VIAL (DILAUDID) ONE (19:06)
--- NOTE | 2023-04-14 19:29 | Diagnostic Imaging Report ---
INDICATION: Recent central venous catheter placement. Single AP view of the chest is obtained. Comparison is made to study of 09/09/2019. Heart size and pulmonary vascularity are within normal limits. There is an placement of left subclavian central venous catheter. There is mild deformity of the catheter as it passes under the clavicle. Catheter reaches the mid superior vena cava. There is no pneumothorax. There is slight left basilar atelectasis or scarring. IMPRESSION: Good positioning of the catheter without evidence of complication although there does appear to be deformity of the catheter as it passes beneath the left clavicle shaft. Dictated by: Dictated on workstation # [id number]
[2023-04-14] MEDS: ceFAZolin INJECTION 2,000 MG in NS (IVPB) 50 ML IV SCH (22:07)
[2023-04-14] MEDS: metroNIDAZOLE 500MG/100ML IVPB 100 ML IV SCH (22:08)
[2023-04-14] MEDS: 1/2 NS W/KCL 20 MEQ/L 1,000 ML IV SCH (22:08)
[2023-04-14] MEDS: ENOXAPARIN INJECTION 30 MG/0.3 ML SYR SC SCH (22:09)
[2023-04-15] MEDS: diphenhydrAMINE 50 MG/ML INJ (BENADRYL) IVP PRN ×2 (02:35→23:26)
[2023-04-15] MEDS: 1/2 NS W/KCL 20 MEQ/L 1,000 ML IV SCH ×3 (02:35→17:22)
--- NOTE | 2023-04-15 02:49 | OPERATIVE REPORT ---
DATE OF SERVICE: 04/14/2023 ATTENDING PRIMARY CARE PHYSICIAN: Brock Clark MD PREOPERATIVE DIAGNOSIS: History of complicated sigmoid diverticulitis. POSTOPERATIVE DIAGNOSIS: History of complicated sigmoid diverticulitis. PROCEDURES: Laparoscopic low anterior colorectal resection, placement left subclavian central venous catheter. SURGEON: Lorraine Sanchez MD DEPUTY SHERIFF K9 HANDLER: Jl Gandhi APRN ANESTHESIA: General endotracheal. ESTIMATED BLOOD LOSS: Minimal. FINDINGS: A thickened portion of the sigmoid colon. No abscess. DISPOSITION: The patient tolerated the procedure well. INDICATIONS: The patient is a 62-year-old male who developed significant abdominal pain and stated that this had started 1 week prior. He presented to his physician's office, where a CT scan was performed, which showed sigmoid diverticulitis with microperforation and a small abscess 1.7 cm in size. He was treated conservatively as an outpatient with antibiotics. He underwent a repeat CT scan, which did show slight worsening and small increase in the abscess to 2 cm. Over time, on continued oral antibiotics, he clinically felt better and was otherwise eating well and having normal bowel movements and not experiencing any fever, no chills. Another followup CT scan was performed on 03/07/2023, which showed persistent acute diverticulitis; however, no worsening of free air and no change in the size of the abscess. His white count and other labs were normal and the two previous blood draws as well. He underwent a colonoscopy, which showed the significant diverticulosis of the sigmoid colon as well as some mild purulence within the diverticula. However, there was no red or erythematous changes to indicate active diverticulitis and more resolution of the previous episode. We have continued him on oral antibiotics and again he continued to be asymptomatic. The patient did decide on proceeding with laparoscopic low anterior colorectal resection. It was also explained to the patient that there is a chance that he may have a diverting loop ileostomy, if there was any residual inflammation left or there is questionable tissue integrity. DESCRIPTION OF PROCEDURE: The patient was brought to the operating room, laid supine on the table. After adequate IV pain and sedative medications and general endotracheal intubation, the abdomen was prepped and draped in standard surgical fashion. The left chest was prepped and draped in standard surgical fashion. The left subclavian vein was then cannulated with drawing of venous blood. A guidewire was then inserted without any resistance. The cannulating needle removed and a skin incision made using 11 blade. A tract was then created using a venous dilator and through this opening, a triple lumen central venous catheter was placed over the guidewire, where it was then placed through the opening over the guidewire using a Seldinger technique. The guidewire was then removed and all 3 ports zeferino venous blood and saline pushed in without any resistance. The catheter was then sutured to the skin using 3-0 silk interrupted sutures. A catheter was then cleaned and covered with Op-Site. The abdomen and perineum were then prepped and draped in standard surgical fashion, while the patient was placed in modified lithotomy position. A 0.5% Marcaine with epinephrine was then used to anesthetize the overlying skin in the left upper abdominal quadrant and a transverse skin incision made using a #15 blade. An 0 silk suture was applied to the medial aspect of the incision for retraction and a Veress needle inserted with low opening pressure of 0 mmHg. The abdomen was then insufflated to 15 mmHg pressure. The Veress needle removed and a 5 mm trocar placed, followed by a 5 mm 45-degree angle laparoscope visualized the peritoneal cavity. A 4-quadrant abdominal exploration was performed. The patient was placed in a Trendelenburg position. The patient did have 2 small bilateral inguinal hernias with nothing within the hernia sac. There was a thickened sigmoid colon. There was no abscess and no active redness, erythema to indicate any active diverticulitis. Under direct visualization, we then proceeded to place a supraumbilical 10 mm port, after the skin and peritoneal lining were anesthetized using 0.5% Marcaine with epinephrine and a transverse skin incision made using a #15 blade. In a similar manner, a suprapubic 10 mm port was placed. We then proceeded with meticulous dissection of the sigmoid colon as well as the rectum using blunt dissection as well as the Sonicision. We proceeded with high ligation of the inferior mesenteric artery and dissected the mesentery medial to lateral as well as the lateral white line of Toldt attachments. While dissecting the rectum, the left ureter was identified and spared throughout the process. We then proceeded to take the white lines of Toldt superiorly to the splenic flexure. The connective tissue fibers were then taken down using blunt dissection as well as the Sonicision to get adequate length of the descending colon to do our anastomosis without any tension. Good hemostasis was observed. The rectum was then stapled and transected using a LAN 60 mm stapler with a 3.5 mm staple load. The transected end was then pulled through the suprapubic 10 mm port site after the fascia, skin and peritoneal lining were lengthened. A nondiseased portion of the descending colon was identified and was well perfused. We chose this as our proximal resection spot and a pursestring applied and the proximal resection was made using a 10 blade. We then proceeded with dilatation of the proximal end, we were able to dilate to a 33 mm. It was decided to use a 29 mm EEA stapler and the anvil was placed into the proximal end and tied with a pursestring suture. I then went to the anus and proceeded with dilatation to 33 mm. The EEA stapler was then placed into the rectum under direct visualization through the laparoscope. The stem was then opened and placed onto the anvil approximated together and the stapler fired. The stapler was then removed and examined with a proximal and distal rings were completely intact. Good hemostasis was also observed. We then proceeded with a leak test using a rigid proctoscope with no leak identified. A 19-Nepalese Dillan-Toscano drain was then placed around the area of the anastomosis. Before this, fibrin glue was placed around the area of the anastomosis. The drain was pulled up through the left upper abdominal quadrant 5 mm port site and sutured to the skin using 3-0 nylon suture. The abdomen was then desufflated and the extended incision in the suprapubic area fascia and peritoneum were then closed under direct visualization using a running PDS suture. All skin incisions were then closed using 4-0 Monocryl running subcuticular sutures. Wounds were then cleaned and covered with Dermabond. The patient tolerated the procedure well. We will admit him to the floor and proceed with DVT prophylaxis with early ambulation, calf SCDs as well as Lovenox injections. We will also proceed with adequate pain control with the TURNER MACHINE OPERATOR pump. Once he does have some bowel function, we will start a clear liquid diet and advance as tolerated. Once he is tolerating a diet and has adequate pain control with oral pain medication, has adequate bowel function and is ambulating well, we will then discharge him home where he will be instructed to do no heavy lifting or exertion for the next 2 weeks and also proceed with low residue diet for the next 6 weeks as well. Job ID: [id number] DocumentID: [id number] Dictated Date: 04/14/2023 19:00:23 Glass Laminating Operator Date: 04/15/2023 02:29:00 Dictated By: LORRAINE SANCHEZ MD MTDKavita
[2023-04-15 03:48] VITALS: BP 126/71
[2023-04-15] MEDS: ceFAZolin INJECTION 2,000 MG in NS (IVPB) 50 ML IV SCH (05:48)
[2023-04-15 05:53] LABS: HEMATOCRIT 38 % (40-54); HEMOGLOBIN 13.2 g/dL (13.3-17.7); MEAN CORPUSCULAR HEMOGLOBIN 31 pg (25-34); MEAN CORPUSCULAR HGB CONC 35 g/dL (32-36); MEAN CORPUSCULAR VOLUME 88 fL (80-99); MEAN PLATELET VOLUME 9.8 fL (9.0-12.2); PLATELET COUNT 246 10^3/uL (130-400); WHITE BLOOD COUNT 15.3 10^3/uL (4.3-11.0)
[2023-04-15 06:10] LABS: POTASSIUM 3.8 MMOL/L (3.6-5.0)
[2023-04-15 06:12] LABS: CALCIUM 8.8 MG/DL (8.5-10.1)
[2023-04-15 06:16] LABS: CREATININE SERUM 0.88 MG/DL (0.60-1.30)
[2023-04-15] MEDS: RT-ALBUTEROL SULF 2.5 MG/3 ML PRE-MIX VIAL INH SCH ×3 (07:02→22:56)
--- NOTE | 2023-04-15 07:31 | Anesthesia-General Post-Op ---
General Patient Condition Mental Status/LOC: Same as Preop Cardiovascular: Satisfactory Nausea/Vomiting: Absent Respiratory: Satisfactory Pain: Controlled Complications: Absent Post Op Complications Complications None Follow Up Care/Instructions Patient Instructions None needed. Anesthesia/Patient Condition Patient Condition Patient is doing well, no complaints, stable vital signs, no apparent adverse anesthesia problems. No complications reported per nursing. [place] [facility] [place] SINTIA MARTINEZ CRNA Apr 15, 2023 07:31
[2023-04-15 07:40] VITALS: BP 118/62
[2023-04-15] MEDS: ENOXAPARIN INJECTION 30 MG/0.3 ML SYR SC SCH ×2 (08:15→20:51)
[2023-04-15] MEDS: metroNIDAZOLE 500MG/100ML IVPB 100 ML IV SCH ×2 (08:15→20:51)
[2023-04-15] MEDS: PANTOPRAZOLE 40 MG (PROTONIX) VIAL IV SCH (08:15)
--- NOTE | 2023-04-15 09:04 | Consultation - Hospitalist ---
HPI History of Present Illness: HPI/Chief Complaint Pt is a 62yoCM with a PMH of HTN, DM, NIDDMII who was admitted by surgery for perforated diverticulum. He reports he was recently treated for diverticulitis and has had episodes of diverticulitis in the past but has never needed surgery. Dr. Sanchez performed a resection yesterday and I am consulted for medical management. He reports his pain is controlled if he doesn't move but is lens fabricating machine tender with any movement. He states he would like his cm catheter out as it is very uncomfortable and kept him up most of the night. Source: patient Date Seen 04/15/23 Attending Physician Brock Clark DO PCP Admitting Physician: Lorraine Sanchez MD Attending Physician: Lorraine Sanchez MD Referring Physician Date of Admission Apr 14, 2023 at 11:50 Home Medications & Allergies Home Medications Reviewed patient Home Medication Reconciliation performed by pharmacy medication reconciliations forest technician and/or nursing. Patients Allergies have been reviewed. Allergies Allergies Coded Allergies No Known Drug Allergies (Unverified04/07/23) Past Iiopkol-Eytpzh-Liapce Hx Patient Social History Tobacco Use?: No Smoking Status: Never a Smoker Smokeless Tobacco Frequency: Never a User Use of E-Cig and/or Vaping dev: No Substance use?: No Alcohol Use?: No Pt feels they are or have been: No Immunizations Up To Date First/Initial COVID19 Vaccinat: NO Second COVID19 Vaccination Emory: NO Tetanus Booster (TDap): Unknown Hepatitis A: No Hepatitis B: No Seasonal Allergies Seasonal Allergies: No Current Status Advance Directives: No Communicates: Verbally Primary Language: Montserratian Preferred Spoken Language: Montserratian Is interpretation needed?: No Sensory deficits: Vision impairment Implanted or Applied Medical D: None Past Medical History Surgeries: Orthopedic, Vasectomy Currently Using CPAP: No Currently Using BIPAP: No High Cholesterol, Hypertension Sexually Transmitted Disease: No Kidney Stones Diverticulosis Diabetes, Non-Insulin dep Loss of Vision: Denies Hearing Impairment: Denies Blood Disorders: No Adverse Reaction/Blood Tranf: No Family Medical History Reviewed Nursing Family Hx Review of Systems Constitutional: see HPI Physical Exam Physical Exam Vital Signs Vital Signs - First Documented 04/14/23 12:41 Temp 36.1 Pulse 59 Resp 18 B/P (MAP) 141/86 (104) Pulse Ox 95 O2 Delivery Room Air Capillary Refill : Less Than 3 Seconds Height, Weight, BMI Height: 5'11.00" Weight: 250lbs. 0.0oz. 113.381391nj; 36.75 BMI Method: General Appearance: No Apparent Distress, Obese Respiratory: Lungs Clear, No Accessory Muscle Use, No Respiratory Distress Cardiovascular: Regular Rate, Rhythm, No Murmur Gastrointestinal: Normal Bowel Sounds, Non Tender, Soft Genital/Rectal: Other (catheter in place) Extremity: No Calf Tenderness, No Pedal Edema Neurologic/Psychiatric: Alert, Oriented x3, Normal Mood/Affect Results Results/Procedures Labs Laboratory Tests 04/15/23 17:03 04/16/23 04:49 Patient resulted labs reviewed. Assessment/Plan Assessment and Plan Assess & Plan/Chief Complaint Perforated diverticulum Management per primary DIANA drain in place Abx per Dr Sanchez- confirmed with him about dosing Pain regimen Await bowel function DC cm NIDDMII Hold metformin SSI Accuchecks Q6 HTN HLD Hold home meds as is NPO BP well controlled DVT ppx: Lovenox Diagnosis/Problems Diagnosis/Problems (1) Non-insulin dependent type 2 diabetes mellitus (2) Hyperlipidemia (3) HTN (hypertension) (4) Obesity (5) Perforation of sigmoid colon due to diverticulitis (6) History of diverticulitis FARRAH HUGGINS MD Apr 15, 2023 09:04
[2023-04-15] MEDS ORDERED: CYAN-41 PO (09:45)
[2023-04-15] MEDS ORDERED: FINA5TAB6 PO (09:45)
[2023-04-15] MEDS ORDERED: ASPI-1238 PO (09:45)
[2023-04-15] MEDS ORDERED: ASCO-262 PO (09:45)
[2023-04-15] MEDS ORDERED: TMSL.4C PO (09:45)
[2023-04-15] MEDS ORDERED: FISH1CAP15 PO (09:45)
[2023-04-15] MEDS ORDERED: ATEN1TAB3 PO (09:45)
[2023-04-15 11:27] VITALS: BP 123/64
[2023-04-15] MEDS ORDERED: METOCLOPRAMIDE INJ 10 MG/2 ML (REGLAN) IVP PRN (13:00)
[2023-04-15] MEDS: inSUlin ASPART (NovoLOG) 1 UNIT/0.01 ML (CHARGE PER UNIT) SC SCH ×2 (16:09→20:48)
[2023-04-15 16:24] VITALS: BP 96/52
[2023-04-15 17:08] LABS: BASOPHILS % (AUTO) 0 % (0-10); EOSINOPHILS % (AUTO) 0 % (0-10); HEMATOCRIT 37 % (40-54); HEMOGLOBIN 12.8 g/dL (13.3-17.7); LYMPHOCYTES # (AUTO) 0.9 10^3/uL (1.0-4.0); LYMPHOCYTES % (AUTO) 6 % (12-44); MEAN CORPUSCULAR HEMOGLOBIN 31 pg (25-34); MEAN CORPUSCULAR HGB CONC 35 g/dL (32-36); MEAN CORPUSCULAR VOLUME 89 fL (80-99); MEAN PLATELET VOLUME 9.4 fL (9.0-12.2); MONOCYTES # (AUTO) 0.8 10^3/uL (0.0-1.0); MONOCYTES % (AUTO) 6 % (0-12); NEUTROPHILS # (AUTO) 12.9 10^3/uL (1.8-7.8); NEUTROPHILS % (AUTO) 88 % (42-75); PLATELET COUNT 234 10^3/uL (130-400); WHITE BLOOD COUNT 14.7 10^3/uL (4.3-11.0)
[2023-04-15 17:17] LABS: ALBUMIN 3.8 GM/DL (3.2-4.5); POTASSIUM 3.5 MMOL/L (3.6-5.0)
[2023-04-15 17:18] LABS: CALCIUM 8.7 MG/DL (8.5-10.1)
--- NOTE | 2023-04-15 17:18 | Diagnostic Imaging Report ---
EXAMINATION: Chest radiograph, portable AP view. DATE: 04/15/2023 5:14 PM INDICATION: 62-year-old male, chest pain. COMPARISON: April 14, 2023. FINDINGS: There is a left-sided central venous line with tip overlying the mid SVC. Heart size and mediastinal contours are unchanged. There is no identified pneumothorax. There is no large pleural effusion. There are streaky opacities in the left lung base. Lung volumes are somewhat low. IMPRESSION: 1. Mild streaky opacities in the left lung base which may relate to atelectasis, infiltrate and/or small effusion. 2. Left-sided central venous line overlying the mid SVC. The contour of the catheter is unchanged since the comparison exam. Dictated by: Dictated on workstation # [id number]
[2023-04-15 17:19] LABS: TOTAL PROTEIN 6.7 GM/DL (6.4-8.2)
[2023-04-15 17:21] LABS: BILIRUBIN,TOTAL 1.9 MG/DL (0.1-1.0)
[2023-04-15 17:23] LABS: CREATININE SERUM 0.8 MG/DL (0.60-1.30)
[2023-04-15 17:33] LABS: BAND NEUTROPHILS 3 %; BASOPHILS % (MANUAL) 0 %; EOSINOPHILS % (MANUAL) 0 %; LYMPHOCYTES % (MANUAL) 6 %; MONOCYTES % (MANUAL) 6 %; NEUTROPHILS % (MANUAL) 85 %; RBC MORPH NORMAL
--- NOTE | 2023-04-15 17:59 | Tele-ICU Consult ---
History of Present Illness History of Present Illness Date Seen by Provider: Apr 15, 2023 Time Seen by Provider: 17:56 History of Present Illness eICU critical care consult 62 yo M admitted for perforated sigmoid diverticulum, went to OR yesterday, Today BP dropped to 96/52 and transferred to MICU on underwent low anterior colorectal resection PMH DM2, HlD, HTN< obesity Allergies and Home Medications Allergies Coded Allergies: No Known Drug Allergies (Unverified , 04/07/23) Home Medications Ascorbate Calcium 500 Mg Tablet, 500 MG PO DAILY, (Reported) Aspirin 81 Mg Tablet.dr, 81 MG PO DAILY, (Reported) Atenolol/Chlorthalidone 50 Mg-25 Mg Tablet, 1 EA PO DAILY, (Reported) Cyanocobalamin (Vitamin B-12) 1,000 Mcg Tablet, 1,000 MCG PO DAILY, (Reported) Finasteride 5 Mg Tablet, 5 MG PO HS, (Reported) Fish Oil/Dha/Epa 1,200 Mg-144 Mg-216 Mg Capsule, 1 EACH PO DAILY, (Reported) Metformin HCl 500 Mg Tablet, 500 MG PO DAILY, (Reported) Rosuvastatin Calcium 5 Mg Tablet, 5 MG PO DAILY, (Reported) Tamsulosin HCl 0.4 Mg Cap, 0.4 MG PO HS, (Reported) Past Medical/Social/Family Hx Patient Social History Tobacco Use?: No Smoking Status: Never a Smoker Smokeless Tobacco Frequency: Never a User Use of E-Cig and/or Vaping dev: No Substance use?: No Alcohol Use?: No Pt stated abuse/neglect: No Immunizations Up To Date First/Initial COVID19 Vaccinat: NO Second COVID19 Vaccination Emory: NO Tetanus Booster (TDap): Unknown Hepatitis A: No Hepatitis B: No Current Status Advance Directives: No Communicates: Verbally Primary Language: Togolese Preferred Spoken Language: Togolese Is interpretation needed?: No Sensory deficits: Vision impairment Implanted or Applied Medical D: None Review of Systems Constitutional: see HPI EENTM: see HPI Respiratory: see HPI Cardiovascular: see HPI Gastrointestinal: see HPI Genitourinary: see HPI Musculoskeletal: see HPI Skin: see HPI Psychiatric/Neurological: See HPI Focused Exam Height, Weight, BMI Height: 5'11.00" Weight: 250lbs. 0.0oz. 113.449446ps; 36.75 BMI Method: Exam Exam Patient acknowledged, consented, and participated in this virtual visit which was conducted using real time audio/video Vital Signs Date Time Temp Pulse Resp B/P (MAP) Pulse Ox O2 Delivery O2 Flow Rate FiO2 04/15/23 17:45 84 24 120/72 (88) 92 Nasal Cannula 2.00 04/15/23 16:24 35.7 90 22 96/52 (67) 90 Room Air 04/15/23 14:55 Room Air 04/15/23 11:27 37.0 82 18 123/64 (83) 92 Room Air 04/15/23 07:45 Room Air 04/15/23 07:40 36.0 97 18 118/62 (80) 94 Room Air 04/15/23 07:05 91 Room Air 04/15/23 03:48 36.2 96 18 126/71 (89) 91 Room Air 0.00 0.00 04/14/23 23:23 36.2 84 18 142/83 (102) 91 Room Air 0.00 0.00 04/14/23 20:34 36.4 74 18 127/71 (89) 91 Room Air 04/14/23 19:40 Room Air 04/14/23 19:40 36.5 10 126/80 (95) 96 Room Air 04/14/23 19:35 Room Air 04/14/23 19:30 15 129/79 (96) 94 Room Air 04/14/23 19:20 12 129/79 (96) OxyMask 2.00 04/14/23 19:20 OxyMask 1.00 04/14/23 19:10 14 126/77 (93) 99 OxyMask 2.00 04/14/23 19:05 OxyMask 8.00 04/14/23 19:00 15 125/75 (92) 100 8.00 04/14/23 19:00 15 125/75 (92) 100 OxyMask 4.00 04/14/23 18:50 36.4 16 110/58 (75) 99 OxyMask 8.00 04/14/23 18:50 36.4 16 110/58 (75) 99 OxyMask 8.00 04/14/23 18:50 OxyMask 8.00 I & O 04/15/23 07:00 Intake Total 150 ml Output Total 1190 ml Balance -1040 ml Height & Weight Height: 5'11.00" Weight: 250lbs. 0.0oz. 113.905970fl; 36.75 BMI Method: General Appearance: No Apparent Distress, Mild Distress, Obese Respiratory: Lungs Clear, No Accessory Muscle Use, No Respiratory Distress, Decreased Breath Sounds Cardiovascular: Regular Rate, Rhythm, No Murmur Gastrointestinal: normal bowel sounds, soft Extremity: No Calf Tenderness, No Pedal Edema, Pedal Edema Neurologic/Psychiatric: Alert, Oriented x3, Normal Mood/Affect Results Lab Laboratory Tests 04/15/23 05:08 04/15/23 17:03 Assessment/Plan Assessment/Plan Hypotension after colon resection, will continue pain meds, on MACHINE GRAINER IV Fentanyl, IVF spoke to RN Yanick Smalls MD Critical Care: Critically Ill Patient Time spent with patient (mins): 20 CHUY MORTENSEN MD Apr 15, 2023 17:59
[2023-04-15 20:00] VITALS: BP 140/92
[2023-04-15] MEDS ORDERED: HOLD METFORMIN - RECEIVED CONTRAST 20 ML VIAL IV SCH ×2 (20:00→21:30)
[2023-04-15] MEDS ORDERED: IOHEXOL 350 MG/ML 100 ML (OMNIPAQUE 350) VIAL IV ONE ×2 (20:00→21:30)
[2023-04-15] MEDS ORDERED: NS 100 ML (IVPB) BAG IV ONE ×2 (20:00→21:30)
[2023-04-15] MEDS ORDERED: CATHETER FLUSH 10 ML SYR IV PRN (21:30)
--- NOTE | 2023-04-15 21:33 | Diagnostic Imaging Report ---
Exam: CT angiograph of chest with intravenous contrast. Date: April 15, 2023. Indication: 62-year-old male, shortness of breath. Elevated d-dimer. Status post colon resection. Comparison: Chest radiograph April 15, 2023. Technique: Axial CT angiogram images of the chest were obtained with intravenous contrast. Coronal and sagittal as well as three-dimensional reformats were obtained and provided. All CT scans use one or more of the following dose optimizing techniques: automated exposure control, MA and/or KvP adjustment based on patient size and exam type or iterative reconstruction. Findings: There is homogeneously enhancing dependent consolidation in the right and left lower lobes compatible with atelectasis. There are trace bilateral pleural effusions. There is no identified pulmonary nodule or lung mass. There is no additional identified focal airspace consolidation. There is no identified pulmonary embolus. The main pulmonary diameter is within normal limits. The heart is not enlarged. There is no identified pericardial effusion. There is no identified abnormally enlarged mediastinal, hilar or axillary lymph node meeting CT size criteria for adenopathy. There is an incompletely imaged probable drainage catheter in the left anterior abdomen. Additional evaluation of the imaged portions of the upper abdomen is grossly unremarkable. There are multilevel degenerative changes of the spine. There is no identified acute bony abnormality. Impression: 1. No identified pulmonary embolus. 2. Trace bilateral pleural effusions with mild dependent atelectasis in the right and left lower lobes. Dictated by: Dictated on workstation # [id number]
[2023-04-16] VITALS (7 sets, daily range): BP systolic 124–165; BP diastolic 76–102
[2023-04-16] MEDS: 1/2 NS W/KCL 20 MEQ/L 1,000 ML IV SCH ×2 (04:44→15:02)
[2023-04-16 05:01] LABS: BASOPHILS % (AUTO) 0 % (0-10); EOSINOPHILS % (AUTO) 0 % (0-10); HEMATOCRIT 35 % (40-54); HEMOGLOBIN 12.4 g/dL (13.3-17.7); LYMPHOCYTES # (AUTO) 1.3 10^3/uL (1.0-4.0); LYMPHOCYTES % (AUTO) 9 % (12-44); MEAN CORPUSCULAR HEMOGLOBIN 31 pg (25-34); MEAN CORPUSCULAR HGB CONC 35 g/dL (32-36); MEAN CORPUSCULAR VOLUME 88 fL (80-99); MEAN PLATELET VOLUME 9.3 fL (9.0-12.2); MONOCYTES % (AUTO) 7 % (0-12); NEUTROPHILS # (AUTO) 12.1 10^3/uL (1.8-7.8); NEUTROPHILS % (AUTO) 83 % (42-75); PLATELET COUNT 212 10^3/uL (130-400); WHITE BLOOD COUNT 14.6 10^3/uL (4.3-11.0)
[2023-04-16 05:10] LABS: POTASSIUM 3.6 MMOL/L (3.6-5.0)
[2023-04-16 05:11] LABS: CALCIUM 8.6 MG/DL (8.5-10.1)
[2023-04-16 05:16] LABS: CREATININE SERUM 0.73 MG/DL (0.60-1.30)
[2023-04-16] MEDS: inSUlin ASPART (NovoLOG) 1 UNIT/0.01 ML (CHARGE PER UNIT) SC SCH ×4 (05:19→20:45)
[2023-04-16] MEDS: RT-ALBUTEROL SULF 2.5 MG/3 ML PRE-MIX VIAL INH SCH (06:36)
--- NOTE | 2023-04-16 08:25 | Tele-ICU Progress Note ---
Subjective Date Seen by a Provider: Apr 16, 2023 Time Seen by a Provider: 08:25 Sepsis Event Evaluation Height, Weight, BMI Height: 5'11.00" Weight: 250lbs. 0.0oz. [id number]; 36.18 BMI Method: Exam Exam Patient acknowledged, consented, and participated in this virtual visit which was conducted using real time audio/video Vital Signs Date Time Temp Pulse Resp B/P (MAP) Pulse Ox O2 Delivery O2 Flow Rate FiO2 04/16/23 08:00 86 91 Room Air 04/16/23 07:00 85 15 90 Room Air 04/16/23 07:00 87 04/16/23 06:40 90 Room Air 04/16/23 05:17 36.8 Room Air 04/16/23 04:00 90 Room Air 04/16/23 04:00 86 153/90 (111) 90 Nasal Cannula 2.00 04/16/23 04:00 86 153/90 (111) 90 Room Air 04/16/23 01:00 102 04/16/23 00:00 87 136/83 (100) 91 Room Air 04/16/23 00:00 87 30 136/83 (100) 91 Nasal Cannula 2.00 04/15/23 23:39 36.4 04/15/23 23:34 91 Room Air 04/15/23 21:00 90 29 140/84 (102) 91 Nasal Cannula 2.00 04/15/23 20:00 92 Room Air 04/15/23 20:00 89 30 140/92 (108) 93 Room Air 04/15/23 20:00 89 30 140/92 (108) 93 Nasal Cannula 2.00 04/15/23 20:00 36.1 04/15/23 19:00 80 28 144/91 (108) 93 Nasal Cannula 2.00 04/15/23 19:00 80 04/15/23 18:50 92 Nasal Cannula 2.00 04/15/23 18:00 84 29 131/82 (98) 93 Nasal Cannula 2.00 04/15/23 17:45 92 Nasal Cannula 2.00 04/15/23 17:45 84 24 120/72 (88) 92 Nasal Cannula 2.00 04/15/23 16:24 35.7 90 22 96/52 (67) 90 Room Air 04/15/23 14:55 Room Air 04/15/23 11:27 37.0 82 18 123/64 (83) 92 Room Air I & O 04/16/23 07:00 Intake Total 1350 ml Output Total 1800 ml Balance -450 ml Height & Weight Height: 5'11.00" Weight: 250lbs. 0.0oz. [id number]; 36.18 BMI Method: General Appearance: No Apparent Distress, Mild Distress, Obese Respiratory: Lungs Clear, No Accessory Muscle Use, No Respiratory Distress, Decreased Breath Sounds Cardiovascular: Regular Rate, Rhythm, No Murmur Gastrointestinal: normal bowel sounds, soft Extremity: No Calf Tenderness, No Pedal Edema, Pedal Edema Neurologic/Psychiatric: Alert, Oriented x3, Normal Mood/Affect Results Lab Laboratory Tests 04/15/23 05:08 04/15/23 17:03 04/16/23 04:49 NIYA PIZANO MD Apr 16, 2023 08:25
[2023-04-16] MEDS: PANTOPRAZOLE 40 MG (PROTONIX) VIAL IV SCH (08:29)
[2023-04-16] MEDS: ENOXAPARIN INJECTION 30 MG/0.3 ML SYR SC SCH ×2 (08:29→20:01)
--- NOTE | 2023-04-16 10:15 | Progress Note ---
Subjective Date Seen by a Provider: Apr 16, 2023 Time Seen by a Provider: 10:00 Subjective/Events-last exam Patient seen with Dr. Sanchez. Patient reports feeling better today. Denies any SOB or N/V. Reports some abdominal discomfort especially with movement. 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 Reports to passing some flatus this morning. Objective Exam Vital Signs Date Time Temp Pulse Resp B/P (MAP) Pulse Ox O2 Delivery O2 Flow Rate FiO2 04/16/23 10:00 91 158/105 (125) 90 Room Air 04/16/23 09:00 93 127/87 (105) 90 Room Air 04/16/23 08:00 86 91 Room Air 04/16/23 07:00 85 15 90 Room Air 04/16/23 07:00 87 04/16/23 06:40 90 Room Air 04/16/23 05:17 36.8 Room Air 04/16/23 04:00 90 Room Air 04/16/23 04:00 86 153/90 (111) 90 Nasal Cannula 2.00 04/16/23 04:00 86 153/90 (111) 90 Room Air 04/16/23 01:00 102 04/16/23 00:00 87 136/83 (100) 91 Room Air 04/16/23 00:00 87 30 136/83 (100) 91 Nasal Cannula 2.00 04/15/23 23:39 36.4 04/15/23 23:34 91 Room Air 04/15/23 21:00 90 29 140/84 (102) 91 Nasal Cannula 2.00 04/15/23 20:00 92 Room Air 04/15/23 20:00 89 30 140/92 (108) 93 Room Air 04/15/23 20:00 89 30 140/92 (108) 93 Nasal Cannula 2.00 04/15/23 20:00 36.1 04/15/23 19:00 80 28 144/91 (108) 93 Nasal Cannula 2.00 04/15/23 19:00 80 04/15/23 18:50 92 Nasal Cannula 2.00 04/15/23 18:00 84 29 131/82 (98) 93 Nasal Cannula 2.00 04/15/23 17:45 92 Nasal Cannula 2.00 04/15/23 17:45 84 24 120/72 (88) 92 Nasal Cannula 2.00 04/15/23 16:24 35.7 90 22 96/52 (67) 90 Room Air 04/15/23 14:55 Room Air 04/15/23 11:27 37.0 82 18 123/64 (83) 92 Room Air I & O 04/16/23 07:00 Intake Total 1350 ml Output Total 1800 ml Balance -450 ml Capillary Refill : Less Than 3 Seconds General Appearance: No Apparent Distress, WD/WN Neck: Normal Inspection, Supple Respiratory: No Accessory Muscle Use, No Respiratory Distress Gastrointestinal: soft, tenderness, other (DIANA drain with minimal mild sang. to ss drainage in the bulb, abdominal incisions C/D/I) Extremity: Normal Inspection, Normal Range of Motion Neurologic/Psychiatric: Alert, Oriented x3 Skin: Normal Color, Warm/Dry Results Lab Laboratory Tests 04/15/23 13:42: Glucometer 110 04/15/23 17:03: White Blood Count 14.7H, Red Blood Count 4.14L, Hemoglobin 12.8L, Hematocrit 37L , Mean Corpuscular Volume 89, Mean Corpuscular Hemoglobin 31, Mean Corpuscular Hemoglobin Concent 35, Red Cell Distribution Width 13.3, Platelet Count 234, Mean Platelet Volume 9.4, Immature Granulocyte % (Auto) 0, Neutrophils (%) ( Auto) 88H, Lymphocytes (%) (Auto) 6L, Monocytes (%) (Auto) 6, Eosinophils (%) (Auto) 0, Basophils (%) (Auto) 0, Neutrophils # (Auto) 12.9H, Lymphocytes # (Auto) 0.9L, Monocytes # (Auto) 0.8, Eosinophils # (Auto) 0.0, Basophils # (Auto) 0.0, Immature Granulocyte # (Auto) 0.1, Neutrophils % (Manual) 85, Lymphocytes % (Manual) 6, Monocytes % (Manual) 6, Eosinophils % (Manual) 0, Basophils % (Manual) 0, Band Neutrophils 3, Blood Morphology Comment NORMAL, D- Dimer 1.40H, Sodium Level 133L, Potassium Level 3.5L, Chloride Level 97L, Carbon Dioxide Level 24, Anion Gap 12, Blood Urea Nitrogen 13, Creatinine 0.80, Estimat Glomerular Filtration Rate 101, BUN/Creatinine Ratio 16, Glucose Level 144H, Calcium Level 8.7, Corrected Calcium 8.9, Total Bilirubin 1.9H, Aspartate Amino Transf (AST/SGOT) 20, Alanine Aminotransferase (ALT/SGPT) 19, Alkaline Phosphatase 56, Total Protein 6.7, Albumin 3.8 04/15/23 17:36: Glucometer 133H 04/15/23 20:32: Glucometer 117H 04/16/23 04:49: White Blood Count 14.6H, Red Blood Count 3.99L, Hemoglobin 12.4L, Hematocrit 35L , Mean Corpuscular Volume 88, Mean Corpuscular Hemoglobin 31, Mean Corpuscular Hemoglobin Concent 35, Red Cell Distribution Width 13.2, Platelet Count 212, Mean Platelet Volume 9.3, Immature Granulocyte % (Auto) 0, Neutrophils (%) (Auto) 83H, Lymphocytes (%) (Auto) 9L, Monocytes (%) (Auto) 7, Eosinophils (%) (Auto) 0, Basophils (%) (Auto) 0, Neutrophils # (Auto) 12.1H, Lymphocytes # (Auto) 1.3, Monocytes # (Auto) 1.0, Eosinophils # (Auto) 0.0, Basophils # (Auto) 0.0, Immature Granulocyte # (Auto) 0.1, Sodium Level 131L, Potassium Level 3.6, Chloride Level 97L, Carbon Dioxide Level 26, Anion Gap 8, Blood Urea Nitrogen 11, Creatinine 0.73, Estimat Glomerular Filtration Rate 104, BUN/Creatinine Ratio 15, Glucose Level 131H, Calcium Level 8.6 Microbiology 04/14/23 MRSA Screen - Final, Complete MRSA not isolated Assessment/Plan Assessment/Plan Assess & Plan/Chief Complaint A 62 year old male with a history of perforated sigmoid diverticulitis, S/P lap low anterior sigmoid colon resection with reanastomosis VSS WBC 14.6 Continue pain and nausea meds as needed - discussed with patient about trying use oral pain meds vs IV Encourage ambulation and IS Continue with clear liquid diet BENNY MORA PHY THERAPIST Apr 16, 2023 10:15
--- NOTE | 2023-04-16 10:29 | Physical Therapy Evaluation ---
PT Evaluation-General Medical Diagnosis Admission Date Apr 14, 2023 at 11:50 Medical Diagnosis: sigmoid diverticulosis with Hx of perforated diverticulitis; s/p resection Onset Date: Apr 14, 2023 Therapy Diagnosis Therapy Diagnosis: decreased functional mobility Height/Weight Height (Feet): 5 Height (Inches): 11.00 Weight (Pounds): 250 Weight (Ounces): 0.0 Precautions Precautions/Isolations: Fall Prevention, Standard Precautions Weight Bear Status Right Lower Extremity: Right Full Weight Bearing Left Lower Extremity: Left Full Weight Bearing Referral Physician: Brenda Reason for Referral: Evaluation/Treatment Medical History Pertinent Medical History: DM, HTN Additional Medical History vertigo, hypercholesterolemia, diverticulitis Current History sigmoid diverticulosis s/p resection Reviewed History: Yes Social History Home: Single Level Current Living Status: Spouse Entry Into Home: Stairs With Railing PT Steps Into Home: 3 Prior Prior Level of Function SCALE: Activities may be completed with or without assistive devices. 9-Dioxeqtfts-pmavupb completes the activity by him/herself with no assistance from a helper. 5-Set-up or Clean-up Assistance-helper sets up or cleans up; patient completes activity. [place] assists only prior to or following the activity. 4-Supervision or Touching Assistance-helper provides verbal cues and/or touching/steadying and/or contact guard assistance as patient completes activity. Assistance may be provided throughout the activity or intermittently. 3-Partial/Moderate Assistance-helper does LESS THAN HALF the effort. [place] lifts, holds or supports trunk or limbs, but provides less than half the effort. 2-Substantial/Maximal Assistance-helper does MORE THAN HALF the effort. [place] lifts or holds trunk or limbs and provides more than half the effort. 9-Xmayviola-kcoeuu does ALL the effort. Patient does none of the effort to complete the activity. Or, the assistance of 2 or more helpers is required for the patient to complete the activity. If activity was not attempted, code reason: 7-Patient Refused. 9-Not Applicable-not attempted and the patient did not perform the activity before the current illness, exacerbation or injury. 10-Not Attempted due to Environmental Limitations-(lack of equipment, weather restraints, etc.). 88-Not Attempted due to Medical Conditions or Safety Concerns. Bed Mobility: 6 Transfers (B,C,W/C): 6 Gait: 6 Stairs: 6 Wheelchair Mobility: 9 Indoor Mobility (Ambulation): Independent Stairs: Independent Prior Devices Use: None PT Evaluation-Current Subjective Pt in bed, agreeable. Denies pain at rest, 7/10 with movement. 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 Numeric Pain Scale: 7 Location: Lower Location Body Site: Abdomen Pain Description: Sharp Pt/Family Goals Home Objective Patient Orientation: Person, Place, Time, Situation Attachments: IV ROM/Strength ROM Upper Extremities WFL for mobility ROM Lower Extremities WFL for mobility Strength Upper Extremities WFL for mobility Strength Lower Extremities WFL for mobility; not tested due to recent abdominal Sx Integumentary/Posture Integumentary See nurses' notes Bowel Incontinence: No Bladder Incontinence: No Neuromuscular (Tone, Coordination, Reflexes) intact Sensory Vision: Functional Hearing: Functional Transfers Roll Left to Right (QC): 4 Lying to Sitting/Side of Bed(Q: 3 (Mod a x 1 with VCS for log rolling) Sit to Stand (QC): 4 Chair/Fzk-yt-Gvtbg Xfer(QC): 4 (CGA with FWW) Gait Does the Patient Walk?: Yes Mode of Locomotion: Walk Anticipated Mode of Locomotion: Walk Distance: 2 Gait Assistive Device: FWW Comments/Gait Description bed->chair with FWW with SBA-CGA and line management. No LOB during transer; limited by lines this date. Wheelchair Training Does the Pt Use a Wheelchair?: No Type of Wheelchair: N/A Balance Sitting Static: Normal Sitting Dynamic: Normal Standing Static: Good Standing Dynamic: Good Treatment Eval. Up in chair with needs met, spouse present Assessment/Needs Pt would benefit from short term skilled PT to increase (I) with functional mobility post surgically to allow safe return home with spouse. Rehab Potential: Good PT Short Term Goals Short Term Goals Time Frame: Apr 19, 2023 Roll Left & Right: 6 Sit to lyin Lying to sitting on side of be: 6 PT Longterm Goals Longterm Goals PT Longterm Goals Time Frame: Apr 23, 2023 Roll Left & Right (QC): 6 Sit to Lying (QC): 6 Lying-Sitting on Side/Bed(QC): 6 Sit to Stand (QC): 6 Chair/Bda-rt-[place] Xfer(QC): 6 Toilet Transfer (QC): 6 Car Transfer (QC): 6 Does the Patient Walk: Yes Walk 10 feet (QC): 6 Walk 50ft with 2 Turns (QC): 6 Walk 150 ft (QC): 6 Walking 10ft on Uneven Surface: 6 1 Step (curb) (QC): 6 4 Steps (QC): 6 Does the Pt use WC or Scooter?: No Type: N/A Type: N/A PT LTGs established to allow safe return home with spouse. PT Plan Problem List Problem List: Activity Tolerance, Functional Strength, Safety, Balance, Gait, Transfer, Bed Mobility Treatment/Plan Treatment Plan: Continue Plan of Care Treatment Plan: Bed Mobility, Education, Functional Activity Patrice, Functional Strength, Gait, Safety, Therapeutic Exercise, Transfers Treatment Duration: Apr 23, 2023 Frequency: 6 times per week Estimated Hrs Per Day: .25 hour per day Patient and/or Family Agrees t: Yes Safety Risks/Education Patient Education: Transfer Techniques Teaching Recipient: Patient Teaching Methods: Discussion Response to Teaching: Verbalize Understanding, Reinforcement Needed Log rolling, PT POC Discharge Recommendations Therapy Discharge Recommendati: Home & Family Time Time In: 0954 Time Out: 1020 DATE: Apr 16, 2023 Total Billed Treatment Time: 26 Total Billed Treatment 1, QUINN BRICENO DPSaman Apr 16, 2023 10:29
[2023-04-16] MEDS: HYDROcodone/APAP 7.5 MG/325 MG (LORTAB, LORCET PLUS) TABLET PO PRN (11:04)
--- NOTE | 2023-04-16 11:04 | Progress Note - Hospitalist ---
Subjective HPI/CC On Admission Date Seen by Provider: Apr 16, 2023 Pt is a 62yoCM with a PMH of HTN, DM, NIDDMII who was admitted by surgery for perforated diverticulum. He reports he was recently treated for diverticulitis and has had episodes of diverticulitis in the past but has never needed surgery. Dr. Sanchez performed a resection yesterday and I am consulted for medical management. He reports his pain is controlled if he doesn't move but is still t evelia with any movement. He states he would like his cm catheter out as it is very uncomfortable and kept him up most of the night. Subjective/Events-last exam Pt reports doing ok today. Still having pain but controlled if not moving. Thinks he may have passed gas this AM. Reviewed CT results with him. Encouraged IS and OOB activity. Objective Exam Vital Signs Vital Signs Date Time Temp Pulse Resp B/P (MAP) Pulse Ox O2 Delivery O2 Flow Rate FiO2 04/16/23 10:00 91 158/105 (125) 90 Room Air 04/16/23 07:00 15 04/16/23 05:17 36.8 04/16/23 04:00 2.00 Capillary Refill : Less Than 3 Seconds General Appearance: No Apparent Distress, Obese Respiratory: Lungs Clear, No Respiratory Distress Cardiovascular: Regular Rate, Rhythm, No Murmur Gastrointestinal: Abnormal Bowel Sounds (quiet); No Distended, No Guarding; Tenderness Neurologic/Psychiatric: Alert, Oriented x3 Results/Procedures Lab Laboratory Tests 04/15/23 17:03 04/16/23 04:49 Patient resulted labs reviewed. Assessment/Plan Assessment and Plan Assess & Plan/Chief Complaint Perforated diverticulum Management per primary DIANA drain in place Pain regimen Await bowel function Had episodes of hypotension yesterday and transferred to ICU Resolved now CTA negative for PE NIDDMII Hold metformin SSI Accuchecks Q6 HTN HLD Hold home meds as is NPO BP well controlled DVT ppx: Lovenox Critical Care Critically Ill Patient Diagnosis/Problems Diagnosis/Problems (1) Non-insulin dependent type 2 diabetes mellitus (2) Hyperlipidemia (3) HTN (hypertension) (4) Obesity (5) Perforation of sigmoid colon due to diverticulitis (6) History of diverticulitis FARRAH HUGGINS MD Apr 16, 2023 11:04
[2023-04-16] MEDS ORDERED: ATENOLOL 25 MG (TENORMIN) TAB PO NR (11:30)
[2023-04-16] MEDS ORDERED: PATIENT MAY USE OWN MEDS, ALL MC SCH (13:45)
[2023-04-16] MEDS: FINASTERIDE (PROSCAR) 5 MG TAB PO SCH (19:59)
[2023-04-16] MEDS: TAMSULOSIN 0.4 MG (FLOMAX) CAP PO SCH (19:59)
[2023-04-17] MEDS: 1/2 NS W/KCL 20 MEQ/L 1,000 ML IV SCH ×4 (00:27→21:23)
[2023-04-17 03:08] VITALS: BP 133/89
[2023-04-17] MEDS: inSUlin ASPART (NovoLOG) 1 UNIT/0.01 ML (CHARGE PER UNIT) SC SCH ×4 (05:38→21:01)
[2023-04-17 07:28] VITALS: BP 132/81
[2023-04-17] MEDS: ENOXAPARIN INJECTION 30 MG/0.3 ML SYR SC SCH ×2 (09:00→20:02)
[2023-04-17] MEDS: ATENOLOL 25 MG (TENORMIN) TAB PO SCH (09:00)
[2023-04-17] MEDS: ROSUVASTATIN 5 MG (CRESTOR) TABLET PO SCH (09:00)
[2023-04-17] MEDS: PANTOPRAZOLE 40 MG (PROTONIX) VIAL IV SCH (09:00)
[2023-04-17] MEDS: HYDROcodone/APAP 7.5 MG/325 MG (LORTAB, LORCET PLUS) TABLET PO PRN ×4 (09:13→23:07)
--- NOTE | 2023-04-17 09:20 | Progress Note ---
Subjective Date Seen by a Provider: Apr 17, 2023 Time Seen by a Provider: 09:10 Subjective/Events-last exam Patient seen with Dr. Sanchez. Patient reports doing ok. Still having abdominal pain, mainly with movement. Tolerating clear liquid diet with no nausea or vomiting. Using IS and ambulating some. Denies any significant flatus or BM. Objective Exam Vital Signs Date Time Temp Pulse Resp B/P (MAP) Pulse Ox O2 Delivery O2 Flow Rate FiO2 04/17/23 07:28 36.0 64 18 132/81 (98) 94 Room Air 04/17/23 03:08 37.0 73 18 133/89 (104) 92 Room Air 04/16/23 23:30 36.3 77 18 133/81 (98) 93 Room Air 04/16/23 20:23 37.9 80 18 144/87 (106) 93 Room Air 04/16/23 20:00 Room Air 04/16/23 16:01 37.0 87 19 124/76 (92) 94 Room Air 04/16/23 13:00 97 04/16/23 12:00 36.0 91 20 165/102 (123) 92 Room Air 04/16/23 10:00 91 158/105 (125) 90 Room Air I & O 04/17/23 07:00 Intake Total 3290 ml Output Total 825 ml Balance 2465 ml Capillary Refill : Less Than 3 Seconds General Appearance: No Apparent Distress, WD/WN Neck: Normal Inspection, Supple Respiratory: No Accessory Muscle Use, No Respiratory Distress Gastrointestinal: soft, tenderness, other (DIANA drain with minimal SS drainage. Incisions C/D/I) Extremity: Normal Inspection, Normal Range of Motion Neurologic/Psychiatric: Alert, Oriented x3 Skin: Normal Color, Warm/Dry Results Lab Laboratory Tests 04/16/23 11:31: Glucometer 133H 04/16/23 16:00: Glucometer 139H 04/16/23 20:16: Glucometer 102 04/17/23 05:22: Glucometer 106 Microbiology 04/15/23 MRSA Screen - Final, Complete MRSA not isolated Assessment/Plan Assessment/Plan Assess & Plan/Chief Complaint A 62 year old male with a history of perforated sigmoid diverticulitis, S/P lap low anterior sigmoid colon resection with reanastomosis VSS Continue pain and nausea meds as needed - 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
[2023-04-17] MEDS ORDERED: fentaNYL INJ 100 MCG/2 ML AMP IVP PRN (09:30)
--- NOTE | 2023-04-17 11:39 | Progress Note - Hospitalist ---
Subjective HPI/CC On Admission Date Seen by Provider: Apr 17, 2023 Pt is a 62yoCM with a PMH of HTN, DM, NIDDMII who was admitted by surgery for perforated diverticulum. He reports he was recently treated for diverticulitis and has had episodes of diverticulitis in the past but has never needed surgery. Dr. Sanchez performed a resection yesterday and I am consulted for medical management. 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 He states he would like his cm catheter out as it is very uncomfortable and kept him up most of the night. Subjective/Events-last exam Pt reports doing ok. Has persistent pain but controlled with meds. Up in chair. 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 Objective Exam Vital Signs Vital Signs Date Time Temp Pulse Resp B/P (MAP) Pulse Ox O2 Delivery O2 Flow Rate FiO2 04/17/23 07:28 36.0 64 18 132/81 (98) 94 Room Air 04/16/23 04:00 2.00 Capillary Refill : Less Than 3 Seconds General Appearance: No Apparent Distress, Chronically ill, Obese Respiratory: Lungs Clear, No Respiratory Distress Cardiovascular: Regular Rate, Rhythm, No Murmur Gastrointestinal: Soft, Abnormal Bowel Sounds (quiet) Neurologic/Psychiatric: Alert, Oriented x3 Results/Procedures Lab Patient resulted labs reviewed. Assessment/Plan Assessment and Plan Assess & Plan/Chief Complaint Perforated diverticulum Management per primary Pain regimen Await bowel function CTA negative for PE PT IS NIDDMII Hold metformin SSI Accuchecks Q6- well controlled HTN HLD Resume home meds as appropriate BP well controlled DVT ppx: Lovenox Critical Care Critically Ill Patient Diagnosis/Problems Diagnosis/Problems (1) Non-insulin dependent type 2 diabetes mellitus (2) Hyperlipidemia (3) HTN (hypertension) (4) Obesity (5) Perforation of sigmoid colon due to diverticulitis (6) History of diverticulitis FARRAH HUGGINS MD Apr 17, 2023 11:39
[2023-04-17 11:53] VITALS: BP 127/77
[2023-04-17 15:31] VITALS: BP 128/76
[2023-04-17] MEDS: FINASTERIDE (PROSCAR) 5 MG TAB PO SCH (19:20)
[2023-04-17] MEDS: TAMSULOSIN 0.4 MG (FLOMAX) CAP PO SCH (19:20)
[2023-04-17 19:34] VITALS: BP 143/86
[2023-04-18] VITALS (7 sets, daily range): BP systolic 119–143; BP diastolic 72–88
[2023-04-18] MEDS: HYDROcodone/APAP 7.5 MG/325 MG (LORTAB, LORCET PLUS) TABLET PO PRN ×5 (03:05→23:11)
[2023-04-18 05:05] LABS: BASOPHILS % (AUTO) 0 % (0-10); EOSINOPHILS # (AUTO) 0.4 10^3/uL (0.0-0.3); EOSINOPHILS % (AUTO) 3 % (0-10); HEMATOCRIT 31 % (40-54); HEMOGLOBIN 10.9 g/dL (13.3-17.7); LYMPHOCYTES # (AUTO) 1.1 10^3/uL (1.0-4.0); LYMPHOCYTES % (AUTO) 9 % (12-44); MEAN CORPUSCULAR HEMOGLOBIN 31 pg (25-34); MEAN CORPUSCULAR HGB CONC 36 g/dL (32-36); MEAN CORPUSCULAR VOLUME 87 fL (80-99); MEAN PLATELET VOLUME 9.6 fL (9.0-12.2); MONOCYTES % (AUTO) 8 % (0-12); NEUTROPHILS # (AUTO) 10.2 10^3/uL (1.8-7.8); NEUTROPHILS % (AUTO) 80 % (42-75); PLATELET COUNT 230 10^3/uL (130-400); WHITE BLOOD COUNT 12.8 10^3/uL (4.3-11.0)
[2023-04-18 05:18] LABS: ALBUMIN 3.1 GM/DL (3.2-4.5); POTASSIUM 3.4 MMOL/L (3.6-5.0)
[2023-04-18 05:20] LABS: CALCIUM 8.5 MG/DL (8.5-10.1)
[2023-04-18 05:22] LABS: BILIRUBIN,TOTAL 1.6 MG/DL (0.1-1.0)
[2023-04-18 05:24] LABS: CREATININE SERUM 0.63 MG/DL (0.60-1.30)
[2023-04-18] MEDS: inSUlin ASPART (NovoLOG) 1 UNIT/0.01 ML (CHARGE PER UNIT) SC SCH ×4 (06:21→21:01)
[2023-04-18] MEDS ORDERED: NS W/KCL 20 MEQ/L 1,000 ML IV ONE (06:42)
[2023-04-18] MEDS: 1/2 NS W/KCL 20 MEQ/L 1,000 ML IV SCH (06:44)
[2023-04-18] MEDS: NS W/KCL 20 MEQ/L 1,000 ML IV SCH ×3 (06:45→20:41)
[2023-04-18] MEDS: PANTOPRAZOLE 40 MG (PROTONIX) VIAL IV SCH (08:27)
[2023-04-18] MEDS: ATENOLOL 25 MG (TENORMIN) TAB PO SCH (08:27)
[2023-04-18] MEDS: ENOXAPARIN INJECTION 30 MG/0.3 ML SYR SC SCH ×2 (08:27→20:41)
[2023-04-18] MEDS: ROSUVASTATIN 5 MG (CRESTOR) TABLET PO SCH (08:28)
--- NOTE | 2023-04-18 10:24 | Physical Therapy Daily Note ---
PT Daily Note-Current Subjective Patient agrees to PT. He reports he has been up in hallway prior to PT. Pain Section J - Health Conditions 1. Rarely or not at all 2. Occasionally 3. Frequently 4. Almost constantly 8. Unable to answer Pain Effect on Sleep: 1 Pain Interference with Therapy: 1 Pain Interference w/Day-to-Day: 1 Mental Status Patient Orientation: Normal For Age Attachments: Central Line Transfers SCALE: Activities may be completed with or without assistive devices. 0-Qsubwtauxs-mlmebes completes the activity by him/herself with no assistance from a helper. 5-Set-up or Clean-up Assistance-helper sets up or cleans up; patient completes activity. [place] assists only prior to or following the activity. 4-Supervision or Touching Assistance-helper provides verbal cues and/or touching/steadying and/or contact guard assistance as patient completes activity. Assistance may be provided throughout the activity or intermittently. 3-Partial/Moderate Assistance-helper does LESS THAN HALF the effort. [place] lifts, holds or supports trunk or limbs, but provides less than half the effort. 2-Substantial/Maximal Assistance-helper does MORE THAN HALF the effort. [place] lifts or holds trunk or limbs and provides more than half the effort. 0-Lmbepbleg-fvkaax does ALL the effort. Patient does none of the effort to complete the activity. Or, the assistance of 2 or more helpers is required for the patient to complete the activity. If activity was not attempted, code reason: 7-Patient Refused. 9-Not Applicable-not attempted and the patient did not perform the activity before the current illness, exacerbation or injury. 10-Not Attempted due to Environmental Limitations-(lack of equipment, weather restraints, etc.). 88-Not Attempted due to Medical Conditions or Safety Concerns. Sit to Stand (QC): 6 Weight Bearing Right Lower Extremity: Right Full Weight Bearing Left Lower Extremity: Left Full Weight Bearing Gait Training Distance: >400' Walk 10 feet (QC): 6 Walk 50 ft with 2 Turns(QC): 6 Walk 150 ft (QC): 6 Gait Assistive Device: None safe and functional with no deviation Assessment Patient is currently at independent PLOF with all gross motor skills safely and does not require continued skilled PT. PT to dismiss patient from services at this time. PT Short Term Goals Short Term Goals Time Frame: Apr 19, 2023 Roll Left & Right: 6 Sit to lyin Lying to sitting on side of be: 6 PT [facility] Goals E Business Manager Goals PT E Business Manager Goals Time Frame: Apr 23, 2023 Roll Left & Right (QC): 6 Sit to Lying (QC): 6 Lying-Sitting on Side/Bed(QC): 6 Sit to Stand (QC): 6 Chair/Drw-mk-Tpqie Xfer(QC): 6 Toilet Transfer (QC): 6 Car Transfer (QC): 6 Does the Patient Walk: Yes Walk 10 feet (QC): 6 Walk 50ft with 2 Turns (QC): 6 Walk 150 ft (QC): 6 Walking 10ft on Uneven Surface: 6 1 Step (curb) (QC): 6 4 Steps (QC): 6 Does the Pt use WC or Scooter?: No Type: N/A Type: N/A PT Plan Treatment/Plan Treatment Plan: Discontinue PT Treatment Plan: Bed Mobility, Education, Functional Activity Patrice, Functional Strength, Gait, Safety, Therapeutic Exercise, Transfers Treatment Duration: Apr 23, 2023 Frequency: 6 times per week Estimated Hrs Per Day: .25 hour per day Patient and/or Family Agrees t: Yes Time Time In: 914 Time Out: 922 DATE: Apr 18, 2023 Total Billed Treatment Time: 8 Total Billed Treatment 1 visit FA 8 min MORGAN MANSFIELD PT Apr 18, 2023 10:23
--- NOTE | 2023-04-18 14:57 | Progress Note - Hospitalist ---
Subjective HPI/CC On Admission Date Seen by Provider: Apr 18, 2023 Time Seen by Provider: 10:30 Pt is a 62yoCM with a PMH of HTN, DM, NIDDMII who was admitted by surgery for perforated diverticulum. He reports he was recently treated for diverticulitis and has had episodes of diverticulitis in the past but has never needed surgery. Dr. Sanchez performed a resection yesterday and I am consulted for medical management. 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 He states he would like his cm catheter out as it is very uncomfortable and kept him up most of the night. Subjective/Events-last exam He is sitting in his chair. He is not having bowel movements or passing gas. He is tolerating clears. He denies pain. He denies nausea and vomiting. Objective Exam Vital Signs Vital Signs Date Time Temp Pulse Resp B/P (MAP) Pulse Ox O2 Delivery O2 Flow Rate FiO2 04/18/23 11:39 36.0 66 18 125/75 (92) 95 Room Air 04/18/23 06:43 0.00 Capillary Refill : Less Than 3 Seconds General Appearance: No Apparent Distress, Obese Respiratory: Lungs Clear, No Respiratory Distress Cardiovascular: Regular Rate, Rhythm, No Murmur Gastrointestinal: Normal Bowel Sounds, Non Tender, Soft, Other (drain in place) Extremity: Normal Inspection, No Pedal Edema Neurologic/Psychiatric: Alert, Normal Mood/Affect Skin: Normal Color, Warm/Dry Results/Procedures Lab Laboratory Tests 04/18/23 04:54 Patient resulted labs reviewed. Assessment/Plan Assessment and Plan Assess & Plan/Chief Complaint Perforated diverticulum Surgery primary Pain regimen Await bowel function Drain with minimal output PT IS Hyponatremia Stop 1/2 NS Begin NS T2DM Holding metformin SSI HTN HLD Resume home meds as appropriate BP well controlled DVT ppx: Lovenox Diagnosis/Problems Diagnosis/Problems (1) Perforation of sigmoid colon due to diverticulitis Status: Acute (2) Hyponatremia Status: Acute (3) HTN (hypertension) Status: Acute (4) Non-insulin dependent type 2 diabetes mellitus Status: Acute (5) Obesity Status: Chronic MACKENZIE WARD MD Apr 18, 2023 14:57
--- NOTE | 2023-04-18 15:47 | Occ Therapy Progress Note ---
Therapy Progress Note OT order received, PT communicated EVAL only, Patient is up ambulating in room w/o assistance, No OT indicated. BRISA ACEVES OT Apr 18, 2023 15:47
[2023-04-18 15:54] LABS: CALCIUM 8.4 MG/DL (8.5-10.1); CREATININE SERUM 0.65 MG/DL (0.60-1.30); POTASSIUM 3.5 MMOL/L (3.6-5.0)
--- NOTE | 2023-04-18 19:19 | Progress Note ---
Subjective Date Seen by a Provider: Apr 18, 2023 Time Seen by a Provider: 19:00 Subjective/Events-last exam doing well. up in chair now and states walked in halls several times today. no BM. pain controlled with PO pain meds. tolerating clears. Objective Exam Vital Signs Date Time Temp Pulse Resp B/P (MAP) Pulse Ox O2 Delivery O2 Flow Rate FiO2 04/18/23 16:07 36.7 71 18 131/82 (98) 90 Room Air 04/18/23 11:39 36.0 66 18 125/75 (92) 95 Room Air 04/18/23 08:20 Room Air 04/18/23 07:41 36.8 71 18 131/75 (93) 94 Room Air 04/18/23 06:43 Room Air 0.00 04/18/23 03:16 36.0 72 18 119/81 (94) 93 Room Air 04/18/23 00:00 36.0 73 18 135/88 (104) 93 Room Air 04/17/23 19:34 37.0 71 18 143/86 (105) 94 Room Air 04/17/23 19:20 Room Air I & O 04/18/23 07:00 Intake Total 4710 ml Output Total 475 ml Balance 4235 ml Capillary Refill : Less Than 3 Seconds General Appearance: No Apparent Distress HEENT: PERRL/EOMI Neck: Full Range of Motion Respiratory: Chest Non Tender, Decreased Breath Sounds Cardiovascular: Regular Rate, Rhythm Gastrointestinal: soft, distended, tenderness, other (incisions clean/dry) Extremity: Normal Capillary Refill Neurologic/Psychiatric: Alert, Oriented x3 Skin: Normal Color Lymphatic: No Adenopathy Results Lab Laboratory Tests 04/17/23 19:54: Glucometer 96 04/18/23 04:54: White Blood Count 12.8H, Red Blood Count 3.50L, Hemoglobin 10.9L, Hematocrit 31L , Mean Corpuscular Volume 87, Mean Corpuscular Hemoglobin 31, Mean Corpuscular Hemoglobin Concent 36, Red Cell Distribution Width 12.9, Platelet Count 230, Mean Platelet Volume 9.6, Immature Granulocyte % (Auto) 0, Neutrophils (%) (Auto) 80H, Lymphocytes (%) (Auto) 9L, Monocytes (%) (Auto) 8, Eosinophils (%) (Auto) 3, Basophils (%) (Auto) 0, Neutrophils # (Auto) 10.2H, Lymphocytes # (Auto) 1.1, Monocytes # (Auto) 1.0, Eosinophils # (Auto) 0.4H, Basophils # (Auto) 0.0, Immature Granulocyte # (Auto) 0.1, Sodium Level 125*L, Potassium Level 3.4L, Chloride Level 91L, Carbon Dioxide Level 26, Anion Gap 8, Blood Urea Nitrogen 12, Creatinine 0.63, Estimat Glomerular Filtration Rate 108, BUN/Creatinine Ratio 19, Glucose Level 118H, Calcium Level 8.5, Corrected Calcium 9.2, Total Bilirubin 1.6H, Aspartate Amino Transf (AST/SGOT) 17, Alanine Aminotransferase (ALT/SGPT) 15, Alkaline Phosphatase 69, Total Protein 6.0L, Al bumin 3.1L 04/18/23 10:59: Glucometer 127H 04/18/23 15:25: Sodium Level 126L, Potassium Level 3.5L, Chloride Level 92L, Carbon Dioxide Level 26, Anion Gap 8, Blood Urea Nitrogen 12, Creatinine 0.65, Estimat Glomerular Filtration Rate 107, BUN/Creatinine Ratio 18, Glucose Level 121H, Calcium Level 8.4L 04/18/23 16:02: Glucometer 119H Microbiology 04/15/23 MRSA Screen - Final, Complete MRSA not isolated Assessment/Plan Assessment/Plan Assess & Plan/Chief Complaint s/p LAR secondary complicated sigmoid diverticulitis. increase ambulation. cont clears for now. await more bowel fxn. start reglan. CARLOS GODFREY MD Apr 18, 2023 19:19
[2023-04-18] MEDS ORDERED: HYDR-3817 PO (19:24)
--- NOTE | 2023-04-18 19:25 | Discharge Inst-Surgical ---
D/C Lap Instructions-BEKAH New, Converted, or Re-Newed RX: RX on Chart Follow Up Appt in 1 week Activity as tolerated No driving for 24 hours No driving while on pain medications Incentive Spirometry use every 2 hours while awake Regular Diet Symptoms to Report: Fever over 101 degree F, Nausea/Vomiting Infection Signs and Symptoms to report: Increased redness, Foul odor of wound, Increased drainage Bathing instructions: May shower Operative Area Clean/Dry; Keep incision clean/dry If any problems/questions: Contact your physician or go to Emergency Room CARLOS GODFREY MD Apr 18, 2023 19:25
[2023-04-18] MEDS: TAMSULOSIN 0.4 MG (FLOMAX) CAP PO SCH (20:41)
[2023-04-18] MEDS: FINASTERIDE (PROSCAR) 5 MG TAB PO SCH (20:41)
[2023-04-18] MEDS: METOCLOPRAMIDE INJ 10 MG/2 ML (REGLAN) IVP SCH (23:10)
[2023-04-19 03:03] VITALS: BP 129/82
[2023-04-19] MEDS: HYDROcodone/APAP 7.5 MG/325 MG (LORTAB, LORCET PLUS) TABLET PO PRN ×4 (03:21→22:06)
[2023-04-19] MEDS: inSUlin ASPART (NovoLOG) 1 UNIT/0.01 ML (CHARGE PER UNIT) SC SCH ×4 (05:23→20:55)
[2023-04-19] MEDS: METOCLOPRAMIDE INJ 10 MG/2 ML (REGLAN) IVP SCH ×4 (05:30→23:11)
[2023-04-19] MEDS: NS W/KCL 20 MEQ/L 1,000 ML IV SCH (05:31)
[2023-04-19 08:02] VITALS: BP 144/83
[2023-04-19] MEDS: PANTOPRAZOLE 40 MG (PROTONIX) TAB PO SCH (09:07)
[2023-04-19] MEDS: ENOXAPARIN INJECTION 30 MG/0.3 ML SYR SC SCH ×2 (09:07→20:53)
[2023-04-19] MEDS: ATENOLOL 25 MG (TENORMIN) TAB PO SCH (09:08)
[2023-04-19] MEDS: ROSUVASTATIN 5 MG (CRESTOR) TABLET PO SCH (09:08)
[2023-04-19 09:49] LABS: CALCIUM 8.3 MG/DL (8.5-10.1); CREATININE SERUM 0.63 MG/DL (0.60-1.30); POTASSIUM 3.4 MMOL/L (3.6-5.0)
[2023-04-19 12:20] VITALS: BP 161/87
--- NOTE | 2023-04-19 15:16 | Progress Note - Hospitalist ---
Subjective HPI/CC On Admission Date Seen by Provider: Apr 19, 2023 Time Seen by Provider: 10:20 Pt is a 62yoCM with a PMH of HTN, DM, NIDDMII who was admitted by surgery for perforated diverticulum. He reports he was recently treated for diverticulitis and has had episodes of diverticulitis in the past but has never needed surgery. Dr. Sanchez performed a resection yesterday and I am consulted for medical management. 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 He states he would like his cm catheter out as it is very uncomfortable and kept him up most of the night. Subjective/Events-last exam He has passed some gas today. He does not like the clear liquids. He has been out walking in the halls. He denies nausea. He is not having much pain. Objective Exam Vital Signs Vital Signs Date Time Temp Pulse Resp B/P (MAP) Pulse Ox O2 Delivery O2 Flow Rate FiO2 04/19/23 12:20 36.1 77 18 161/87 (111) 92 Room Air 04/19/23 03:03 0.00 0.00 Capillary Refill : Less Than 3 Seconds General Appearance: No Apparent Distress, Obese Respiratory: Lungs Clear, No Respiratory Distress Cardiovascular: Regular Rate, Rhythm, No Murmur Gastrointestinal: Normal Bowel Sounds, Soft Extremity: Normal Inspection, No Pedal Edema Neurologic/Psychiatric: Alert, Oriented x3, No Motor/Sensory Deficits Skin: Normal Color, Warm/Dry Results/Procedures Lab Laboratory Tests 04/18/23 15:25 04/19/23 09:16 Patient resulted labs reviewed. Assessment/Plan Assessment and Plan Assess & Plan/Chief Complaint Perforated diverticulum Surgery primary Pain regimen Await bowel function Drain with minimal output Remove central line PT IS Hyponatremia Improving Stop fluids T2DM Holding metformin SSI HTN HLD Continue home meds as appropriate DVT ppx: Lovenox Diagnosis/Problems Diagnosis/Problems (1) Perforation of sigmoid colon due to diverticulitis Status: Acute (2) Hyponatremia Status: Acute (3) HTN (hypertension) Status: Acute (4) Non-insulin dependent type 2 diabetes mellitus Status: Acute (5) Obesity Status: Chronic MACKENZIE WARD MD Apr 19, 2023 15:16
--- NOTE | 2023-04-19 15:44 | Progress Note ---
Subjective Date Seen by a Provider: Apr 19, 2023 Time Seen by a Provider: 15:00 Subjective/Events-last exam doing well. passing flatus but no BM yet. ambulating well. tolerating clears. pain controlled with PO meds. Objective Exam Vital Signs Date Time Temp Pulse Resp B/P (MAP) Pulse Ox O2 Delivery O2 Flow Rate FiO2 04/19/23 12:20 36.1 77 18 161/87 (111) 92 Room Air 04/19/23 08:02 36.1 78 20 144/83 (103) 91 Room Air 04/19/23 08:00 Room Air 04/19/23 03:03 36.2 70 16 129/82 (98) 92 Room Air 0.00 0.00 04/18/23 23:23 36.4 70 18 143/82 (102) 93 Room Air 04/18/23 20:40 Room Air 04/18/23 19:53 36.4 68 19 130/72 (91) 91 Room Air 04/18/23 16:07 36.7 71 18 131/82 (98) 90 Room Air I & O 04/19/23 07:00 Intake Total 2180 ml Output Total 1380 ml Balance 800 ml Capillary Refill : Less Than 3 Seconds General Appearance: No Apparent Distress HEENT: PERRL/EOMI Neck: Full Range of Motion Respiratory: Chest Non Tender, Decreased Breath Sounds Cardiovascular: Regular Rate, Rhythm Gastrointestinal: normal bowel sounds, soft, tenderness Extremity: Normal Capillary Refill Neurologic/Psychiatric: Alert, Oriented x3 Skin: Normal Color Lymphatic: No Adenopathy Results Lab Laboratory Tests 04/18/23 16:02: Glucometer 119H 04/18/23 20:58: Glucometer 114H 04/19/23 05:16: Glucometer 101 04/19/23 09:16: Sodium Level 129L, Potassium Level 3.4L, Chloride Level 96L, Carbon Dioxide Level 25, Anion Gap 8, Blood Urea Nitrogen 10, Creatinine 0.63, Estimat Glomerular Filtration Rate 108, BUN/Creatinine Ratio 16, Glucose Level 121H, Calcium Level 8.3L 04/19/23 10:53: Glucometer 106 Microbiology 04/15/23 MRSA Screen - Final, Complete MRSA not isolated Assessment/Plan Assessment/Plan Assess & Plan/Chief Complaint s/p LAR secondary complicated sigmoid diverticulitis. increase ambulation. increase to low residue diet. await more bowel fxn. on CARLOS Newton MD Apr 19, 2023 15:44
[2023-04-19 16:03] VITALS: BP 140/79
[2023-04-19 20:04] VITALS: BP 151/89
[2023-04-19] MEDS: FINASTERIDE (PROSCAR) 5 MG TAB PO SCH (20:53)
[2023-04-19] MEDS: TAMSULOSIN 0.4 MG (FLOMAX) CAP PO SCH (20:53)
[2023-04-19 23:16] VITALS: BP 152/85
[2023-04-20 03:03] VITALS: BP 156/76
[2023-04-20] MEDS: HYDROcodone/APAP 7.5 MG/325 MG (LORTAB, LORCET PLUS) TABLET PO PRN ×3 (03:03→15:30)
[2023-04-20] MEDS: inSUlin ASPART (NovoLOG) 1 UNIT/0.01 ML (CHARGE PER UNIT) SC SCH ×2 (06:11→10:54)
[2023-04-20] MEDS: METOCLOPRAMIDE INJ 10 MG/2 ML (REGLAN) IVP SCH ×2 (06:12→11:25)
[2023-04-20 07:44] VITALS: BP 136/88
[2023-04-20] MEDS: ATENOLOL 25 MG (TENORMIN) TAB PO SCH (08:33)
[2023-04-20] MEDS: ENOXAPARIN INJECTION 30 MG/0.3 ML SYR SC SCH (08:34)
[2023-04-20] MEDS: PANTOPRAZOLE 40 MG (PROTONIX) TAB PO SCH (08:34)
[2023-04-20] MEDS: ROSUVASTATIN 5 MG (CRESTOR) TABLET PO SCH (08:35)
[2023-04-20 11:38] VITALS: BP 150/89
--- NOTE | 2023-04-20 15:46 | Progress Note - Hospitalist ---
Subjective HPI/CC On Admission Date Seen by Provider: Apr 20, 2023 Time Seen by Provider: 09:25 Pt is a 62yoCM with a PMH of HTN, DM, NIDDMII who was admitted by surgery for perforated diverticulum. He reports he was recently treated for diverticulitis and has had episodes of diverticulitis in the past but has never needed surgery. Dr. Sanchez performed a resection yesterday and I am consulted for medical management. 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 He states he would like his cm catheter out as it is very uncomfortable and kept him up most of the night. Subjective/Events-last exam He has had several bowel movements. He is not having much pain. He denies nausea and vomiting. He is walking. Objective Exam Vital Signs Vital Signs Date Time Temp Pulse Resp B/P (MAP) Pulse Ox O2 Delivery O2 Flow Rate FiO2 04/20/23 11:38 36.0 72 18 150/89 (109) 94 Room Air 04/20/23 08:00 0.00 Capillary Refill : Less Than 3 Seconds General Appearance: No Apparent Distress, Obese Respiratory: Lungs Clear, No Respiratory Distress Cardiovascular: Regular Rate, Rhythm, No Murmur Gastrointestinal: Normal Bowel Sounds, Soft Extremity: Normal Inspection, No Pedal Edema Neurologic/Psychiatric: Alert, Normal Mood/Affect Results/Procedures Lab Patient resulted labs reviewed. Assessment/Plan Assessment and Plan Assess & Plan/Chief Complaint Perforated diverticulum Surgery primary Having bowel movements Diet advanced Pain regimen Drain with minimal output Hyponatremia Improved T2DM Holding metformin SSI HTN HLD Continue home meds as appropriate DVT ppx: Lovenox Diagnosis/Problems Diagnosis/Problems (1) Perforation of sigmoid colon due to diverticulitis Status: Acute (2) Hyponatremia Status: Acute (3) HTN (hypertension) Status: Acute (4) Non-insulin dependent type 2 diabetes mellitus Status: Acute (5) Obesity Status: Chronic MACKENZIE WARD MD Apr 20, 2023 15:46
[2023-04-20 15:56] VITALS: BP 150/89
--- NOTE | 2023-04-20 16:24 | Progress Note ---
Subjective Date Seen by a Provider: Apr 20, 2023 Time Seen by a Provider: 16:00 Subjective/Events-last exam doing well. had 2 large BM's. tolerating low residue diet. minimal SS DIANA drain output. ambulating well. pain controlled with PO meds. Objective Exam Vital Signs Date Time Temp Pulse Resp B/P (MAP) Pulse Ox O2 Delivery O2 Flow Rate FiO2 04/20/23 15:56 36.0 72 18 150/89 94 Room Air 0.00 04/20/23 11:38 36.0 72 18 150/89 (109) 94 Room Air 04/20/23 08:00 93 Room Air 0.00 04/20/23 07:44 36.0 79 18 136/88 (104) 93 Room Air 04/20/23 03:03 36.4 83 18 156/76 (102) 94 Room Air 0.00 0.00 04/19/23 23:16 36.3 80 18 152/85 (107) 93 Room Air 04/19/23 20:50 Room Air 04/19/23 20:04 36.4 81 18 151/89 (109) Room Air I & O 04/20/23 07:00 Intake Total 1420 ml Output Total 10 ml Balance 1410 ml Capillary Refill : Less Than 3 Seconds General Appearance: No Apparent Distress HEENT: PERRL/EOMI Neck: Full Range of Motion Respiratory: Chest Non Tender, Lungs Clear, Normal Breath Sounds Cardiovascular: Regular Rate, Rhythm Gastrointestinal: normal bowel sounds, tenderness, other (in clean/dry) Extremity: Normal Capillary Refill Neurologic/Psychiatric: Alert, Oriented x3 Skin: Normal Color Lymphatic: No Adenopathy Results Lab Laboratory Tests 04/19/23 20:08: Glucometer 143H 04/20/23 05:32: Glucometer 119H 04/20/23 10:46: Glucometer 138H Microbiology 04/15/23 MRSA Screen - Final, Complete MRSA not isolated Assessment/Plan Assessment/Plan Assess & Plan/Chief Complaint s/p LAR secondary complicated sigmoid diverticulitis. increase ambulation. increase to low residue diet. had 2 large BM's. remove DIANA and home soon. CARLOS GODFREY MD Apr 20, 2023 16:24
== END 2023-04-20 17:00 | disposition home or self-care (01) | DRG 330 ==
LOC: 4TH 11:50 → OBSVTOIN 11:50 → INTOOBSV 11:50 → SURG 11:51 → 4TH 20:48 → ICU 04-15 16:54 → 4TH 04-16 14:14
PROVIDERS: ADMIT Surgery; ATTEND Surgery
PROC: 02HV33Z Insertion of Infusion Device into Superior Vena Cava, Percutaneous Approach (ICD-10-PCS; 2023-04-14)
PROC: 0DTN4ZZ Resection of Sigmoid Colon, Percutaneous Endoscopic Approach (ICD-10-PCS; principal; 2023-04-14 15:37)
PROC: 0DBP4ZZ Excision of Rectum, Percutaneous Endoscopic Approach (ICD-10-PCS; 2023-04-14 15:37)
DX: K57.20 Diverticulitis of large intestine with perforation and abscess without bleeding (principal); E87.1 Hypo-osmolality and hyponatremia; I10 Essential (primary) hypertension; E78.00 Pure hypercholesterolemia, unspecified; E11.9 Type 2 diabetes mellitus without complications; E66.9 Obesity, unspecified; Z68.37 Body mass index [BMI] 37.0-37.9, adult; I95.81 Postprocedural hypotension; H54.7 Unspecified visual loss; Z79.899 Other long term (current) drug therapy; Z79.84 Long term (current) use of oral hypoglycemic drugs; Z79.82 Long term (current) use of aspirin
CPT/HCPCS: 36415; 71045; 71275; 80048; 80053; 82947; 85007; 85025; 85027; 85379; 87081; 94640; 94664

== ENCOUNTER 2023-04-30 18:19 | Observation (INO) | payer OTHER ==
[~2023-04-30] VITALS: Ht 180 cm; Wt 113.0 kg
[~2023-04-30 18:19] MED LIST changes: +ASCO-262 PO; +ATEN1TAB3 PO; +CYAN-41 PO; +FINA5TAB6 PO; +FISH1CAP15 PO; +HYDR-3817 PO; +TMSL.4C PO
--- NOTE | 2023-04-30 18:43 | ED Abdominal Pain ---
General Chief Complaint: Post OP Complications/Pain Stated Complaint: FEVER/PAIN/ LUMP LOWER AB Source of Information: Patient, Old Records Exam Limitations: No Limitations History of Present Illness Date Seen by Provider: Apr 30, 2023 Time Seen by Provider: 18:38 Initial Comments This a 62-year-old male with history of DM2, HTN, Obesity, HLD who presented to the clinic with his daughter for elevated temperature of 102.0 F that started today. He underwent recent surgical procedure with Dr. Sanchez on 04/14/2023 for laparoscopic low anterior colorectal resection due to severe diverticulitis. He was hospitalized for 1 week at this facility and discharged on 04/20/2023. States that he was doing well until this morning. Has mild abdominal pain, not increased since procedure. Still passing stools. He did have several loose bowel movements last night that "smelled very bad". He has an area of induration around his lower abdominal incision as well as drainage. No nausea, vomiting, cough, shortness of breath, dysuria, hematuria. Allergies and Home Medications Allergies Coded Allergies: No Known Drug Allergies (Unverified , 04/07/23) Patient Home Medication List Home Medication List Reviewed: Yes Ascorbate Calcium (Vitamin C) 500 Mg Tablet, 500 MG PO DAILY, (Reported) Entered as Reported by: LINDA DAIGLE on 04/15/23944 Last Action: Reviewed Aspirin (Aspirin EC) 81 Mg Tablet., 81 MG PO DAILY, (Reported) Entered as Reported by: LINDA DAIGLE on 04/15/23944 Last Action: Reviewed Atenolol/Chlorthalidone (Atenolol-Chlorthalidone 50-25) 50 Mg-25 Mg Tablet, 1 EA PO DAILY, (Reported) Entered as Reported by: LINDA DAIGLE on 04/15/23944 Last Action: Reviewed Cyanocobalamin (Vitamin B-12) (Vitamin B-12) 1,000 Mcg Tablet, 1,000 MCG PO DAILY, (Reported) Entered as Reported by: LINDA DAIGLE on 04/15/23944 Last Action: Reviewed Finasteride (Finasteride) 5 Mg Tablet, 5 MG PO HS, (Reported) Entered as Reported by: LINDA DAIGLE on 04/15/23944 Last Action: Reviewed Fish Oil/Dha/Epa (Fish Oil 1,200 mg Fish Oil) 1,200 Mg-144 Mg-216 Mg Capsule, 1 EACH PO DAILY, (Reported) Entered as Reported by: LINDA DAIGLE on 04/15/23 0945 Last Action: Reviewed Hydrocodone/Acetaminophen (Hydrocodone-Acetamin 7.5-325) 7.5 Mg-325 Mg Tablet, 1 EA PO Q4H PRN for PAIN-MODERATE (5-7), (Reported) Entered as Reported by: JON HOLLIS on 05/02/23 1225 Last Action: Reviewed Ibuprofen (Ibuprofen) 200 Mg Tablet, 800 MG PO Q8H PRN for PAIN-MILD (1-4), (Reported) Entered as Reported by: JON HOLLIS on 05/02/23 1225 Last Action: Reviewed Levofloxacin (Levofloxacin) 750 Mg Tablet, 750 MG PO DAILY Prescribed by: CARLOS SANCHEZ on 05/02/23 182 Metformin HCl (Metformin HCl) 500 Mg Tablet, 500 MG PO DAILY, (Reported) Entered as Reported by: SUKHDEV JONES on 02/14/19 0729 Last Action: Reviewed Rosuvastatin Calcium (Rosuvastatin Calcium) 5 Mg Tablet, 5 MG PO DAILY, (Reported) Entered as Reported by: CLAIRE LANGE on 03/23/23 1036 Last Action: Reviewed Tamsulosin HCl (Flomax) 0.4 Mg Cap, 0.4 MG PO HS, (Reported) Entered as Reported by: LINDA DAIGLE on 04/15/23 0945 Last Action: Reviewed Review of Systems Review of Systems Constitutional: see HPI Past Wfmcouo-Oohoao-Ecajvk Hx Patient Social History Tobacco Use?: No Smoking Status: Former Smoker Substance use?: No Alcohol Use?: No Pt feels they are or have been: No Immunizations Up To Date Tetanus Booster (TDap): Unknown First/Initial COVID19 Vaccinat: NO Second COVID19 Vaccination Emory: NO Third COVID19 Vaccination Date: NO Seasonal Allergies Seasonal Allergies: No Past Medical History Surgery/Hospitalization HX: bowel resection, orthopedic. htn, dm2 Surgeries: Yes (BILt rotator cuff, shoulder scope, colonoscopy) Orthopedic, Vasectomy Respiratory: No Currently Using CPAP: No Currently Using BIPAP: No Cardiac: Yes High Cholesterol, Hypertension Neurological: No Sexually Transmitted Disease: No Genitourinary: Yes Kidney Stones Gastrointestinal: No Diverticulosis Musculoskeletal: No (rotator cuff repair, shoulder scope) Endocrine: Yes Diabetes, Non-Insulin dep HEENT: No Loss of Vision: Denies Hearing Impairment: Denies Cancer: No Psychosocial: Yes Integumentary: No Blood Disorders: No Adverse Reaction/Blood Tranf: No Physical Exam Vital Signs Vital Signs - First Documented 04/30/23 04/30/23 18:32 21:03 Temp 37.8 Pulse 88 Resp 18 B/P (MAP) 139/83 (101) Pulse Ox 97 O2 Delivery Room Air Capillary Refill : Height/Weight/BMI Height: 5'11.00" Weight: 250lbs. 0.0oz. 113.190772qu; 37.07 BMI Method: General Appearance: WD/WN, no apparent distress HEENT: PERRL/EOMI, normal ENT inspection, pharynx normal Neck: full range of motion, supple, normal inspection Respiratory: no respiratory distress, no accessory muscle use, decreased breath sounds (Bilateral bases) Cardiovascular: regular rate, rhythm, no murmur Gastrointestinal: soft, abnormal bowel sounds (Diminished); No distended, No guarding; tenderness (Mild generalized) Extremities: normal range of motion, normal inspection Back: normal inspection Neurologic/Psychiatric: no motor/sensory deficits, alert, normal mood/affect, oriented x 3 Skin: normal color, warm/dry, other Focused Exam Lactate Level 04/30/23 18:34: Lactic Acid Level 1.41 Lactic Acid Level Laboratory Tests Test 04/30/23 18:34 Lactic Acid Level 1.41 MMOL/L (0.50-2.00) Progress/Results/Core Measures Results/Orders Lab Results Laboratory Tests Test 04/30/23 18:34 04/30/23 19:27 Range/Units White Blood Count 15.3 H 4.3-11.0 10^3/uL Red Blood Count 3.96 L 4.30-5.52 10^6/uL Hemoglobin 11.9 L 13.3-17.7 g/dL Hematocrit 34 L 40-54 % Mean Corpuscular Volume 87 80-99 fL Mean Corpuscular Hemoglobin 30 25-34 pg Mean Corpuscular Hemoglobin Concent 35 32-36 g/dL Red Cell Distribution Width 12.5 10.0-14.5 % Platelet Count 615 H 130-400 10^3/uL Mean Platelet Volume 8.7 L 9.0-12.2 fL Immature Granulocyte % (Auto) 0 % Neutrophils (%) (Auto) 82 H 42-75 % Lymphocytes (%) (Auto) 8 L 12-44 % Monocytes (%) (Auto) 8 0-12 % Eosinophils (%) (Auto) 1 0-10 % Basophils (%) (Auto) 1 0-10 % Neutrophils # (Auto) 12.5 H 1.8-7.8 10^3/uL Lymphocytes # (Auto) 1.3 1.0-4.0 10^3/uL Monocytes # (Auto) 1.2 H 0.0-1.0 10^3/uL Eosinophils # (Auto) 0.1 0.0-0.3 10^3/uL Basophils # (Auto) 0.1 0.0-0.1 10^3/uL Immature Granulocyte # (Auto) 0.1 0.0-0.1 10^3/uL Neutrophils % (Manual) 81 % Lymphocytes % (Manual) 9 % Monocytes % (Manual) 4 % Eosinophils % (Manual) 0 % Basophils % (Manual) 0 % Band Neutrophils 6 % Blood Morphology Comment NORMAL Prothrombin Time 13.4 12.2-14.7 SEC INR Comment 1.0 0.8-1.4 Activated Partial Thromboplast Time 31 24-35 SEC Sodium Level 130 L 135-145 MMOL/L Potassium Level 3.5 L 3.6-5.0 MMOL/L Chloride Level 92 L 98-107 MMOL/L Carbon Dioxide Level 27 21-32 MMOL/L Anion Gap 11 5-14 MMOL/L Blood Urea Nitrogen 14 7-18 MG/DL Creatinine 0.88 0.60-1.30 MG/DL Estimat Glomerular Filtration Rate 98 BUN/Creatinine Ratio 16 Glucose Level 138 H 70-105 MG/DL Lactic Acid Level 1.41 0.50-2.00 MMOL/L Calcium Level 9.6 8.5-10.1 MG/DL Corrected Calcium 9.7 8.5-10.1 MG/DL Total Bilirubin 0.6 0.1-1.0 MG/DL Aspartate Amino Transf (AST/SGOT) 27 5-34 U/L Alanine Aminotransferase (ALT/SGPT) 35 0-55 U/L Alkaline Phosphatase 128 40-136 U/L C-Reactive Protein High Sensitivity 9.08 H 0.00-0.50 MG/DL Total Protein 7.6 6.4-8.2 GM/DL Albumin 3.9 3.2-4.5 GM/DL Urine Color YELLOW Urine Clarity CLEAR Urine pH 7.0 5-9 Urine Specific [place] 1.010 L 1.016-1.022 Urine Protein TRACE H NEGATIVE Urine Glucose (UA) NEGATIVE NEGATIVE Urine Ketones NEGATIVE NEGATIVE Urine Nitrite NEGATIVE NEGATIVE Urine Bilirubin NEGATIVE NEGATIVE Urine Urobilinogen 1.0 < = 1.0 MG/DL Urine Leukocyte Esterase NEGATIVE NEGATIVE Urine RBC (Auto) NEGATIVE NEGATIVE Urine RBC NONE /HPF Urine WBC NONE /HPF Urine Squamous Epithelial Cells NONE /HPF Urine Crystals PRESENT H /LPF Urine Amorphous Sediment RARE KIZZY PHOSPHATE H /LPF Urine Bacteria NEGATIVE /HPF Urine Casts NONE /LPF Urine Mucus NEGATIVE /LPF Urine Culture Indicated CULTURE PENDING Micro Results Microbiology 04/30/23 Urine Culture - Final, Complete NO GROWTH 04/30/23 Blood Culture - Preliminary, Resulted No growth 04/30/23 Gram Stain - Final, Resulted 04/30/23 Wound Culture - Preliminary, Resulted Pseudomonas aeruginosa Gram Pos Mixed Bacterial Zo 04/30/23 Blood Culture - Preliminary, Resulted No growth My Orders Orders - DAVONTE LE [employer]YW[employer] WORKER Cbc With Automated Diff (04/30/23 18:36) Comprehensive Metabolic Panel (04/30/23 18:36) Blood Culture (04/30/23 18:36) Sputum Culture (04/30/23 18:36) Urinalysis (04/30/23 18:36) Urine Culture (04/30/23 18:36) Protime With Inr (04/30/23 18:36) Partial Thromboplastin Time (04/30/23 18:36) Chest 1 View, Ap/Pa Only (04/30/23 18:36) Ed Iv/Invasive Line Start (04/30/23 18:36) Vital Signs Adult Sepsis Patie Q15M (04/30/23 18:36) O2 (04/30/23 18:36) Remove Rings In Anticipation O (04/30/23 18:36) Wound Culture (04/30/23 18:36) Lactic Acid Analyzer (04/30/23 18:36) Ns Iv 1000 Ml (Sodium Chloride 0.9%) (04/30/23 18:45) Piperacillin Sodium/Tazobactam (Zosyn Vi (04/30/23 18:45) Hs C Reactive Protein (04/30/23 18:36) Ct Abdomen/Pelvis W (04/30/23 18:36) Manual Differential (04/30/23 18:34) Iohexol Injection (Omnipaque 350 Mg/Ml 1 (04/30/23 19:00) Received Contrast (Hold Metformin- Contr (04/30/23 19:00) Ns (Ivpb) (Sodium Chloride 0.9% Ivpb Bag (04/30/23 19:00) Medications Given in ED Vital Signs/I&O 04/30/23 04/30/23 18:32 21:03 Temp 37.8 37.3 Pulse 88 83 Resp 18 16 B/P (MAP) 139/83 (101) 130/84 Pulse Ox 97 95 O2 Delivery Room Air Progress Progress Note : Progress Note Patient examined in no acute distress. Vital signs stable. He does have a temperature of 100.0 F, given recent procedure, fever of 102.0 F at home we will go ahead and initiate sepsis work-up. Suspicion is from the draining lower abdominal incision site. Culture obtained. We will go ahead and start on IV fluids and empiric antibiotics.Orders placed for normal saline 1 L bolus, Zosyn 4.5 g IV. No pain at this time. Labs reviewed, has elevation of WBC, lactic negative. VSS. CT abd/pelvis shows abdominal abscess with potential fistula communicating to prior surgery. Labs and imaging reviewed with Dr. Sanchez, general surgeon. Will admit inpatient medical for IVF and antibiotics. Plan reviewed with patient and daughter, they are agreeable with plan. He is stable for transfer to medical unit. Diagnostic Imaging Diagonstic Imaging: Xray Plain Films/CT/US/NM/MRI: chest Comments [facility], [facility]. [place], [place] NAME: RAMA THOMAS MED REC#: [id number] PT STATUS: REG ER : 1960 PHYSICIAN: DAVONTE LE APRN ADMIT DATE: 04/30/23/ER Draft Date of Exam:04/30/23 CHEST 1 VIEW, AP/PA ONLY INDICATION: Fever, cough . TECHNIQUE: Single view chest 6:47 PM. CORRELATION STUDY: 04/15/2023. FINDINGS: The heart size, mediastinal configuration and pulmonary vascularity are within normal limits. Question of minimal infiltrate in right infrahilar region. Left-sided central line has been removed. IMPRESSION: Question of minimal infiltrate in right infrahilar region. Dictated on workstation # [id number] Dict: 04/30/23 1848 Trans: 04/30/23 1851 [facility] [id number] Interpreted by: MAXIMO RICH DO Electronically signed by: Reviewed: Reviewed by Me Diagonstic Imaging: CT Plain Films/CT/US/NM/MRI: abdomen Comments [facility] [place] [place] NAME: RAMA THOMAS MED REC#: [id number] PT STATUS: REG ER : 1960 PHYSICIAN: DAVONTE LE APRN ADMIT DATE: 04/30/23/ER Draft Date of Exam:04/30/23 CT ABDOMEN/PELVIS W PROCEDURE: CT abdomen and pelvis with contrast. TECHNIQUE: Multiple contiguous axial images were obtained through the abdomen and pelvis after administration of intravenous contrast. Auto Exposure Controls were utilized during the CT exam to meet ALARA standards for radiation dose reduction. All CT scans use one or more of the following dose optimizing techniques: automated exposure control, MA and/or KvP adjustment based on patient size and exam type or iterative reconstruction. INDICATION: 62-year-old male, increased generalized weakness, fever, abdominal pain. Report of bowel resection on 04/14. Drainage at incision. CORRELATION STUDY: None. FINDINGS: LOWER THORAX: Suggestion of likely minimal scarring or atelectasis at both lung bases, left greater than right. Trace left pleural effusion. LIVER: Mild steatosis. GALLBLADDER: Contracted but otherwise unremarkable. SPLEEN: Unremarkable. PANCREAS: Atrophic ADRENAL GLANDS: Unremarkable. 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 Otherwise normal enhancement. No obstruction. ABDOMINAL AORTA: Unremarkable, nonaneurysmal. A few shotty aortocaval and mesenteric lymph nodes. GASTROINTESTINAL TRACT: Apparent surgical changes in the sigmoid colon. Just proximal to the presumed anastomotic suture line and continues with more proximal colon is a large gas and likely stool collection measuring approximately 10 x 6 cm. Additionally, anterior left upper quadrant appears to be just above this area versus along small bowel is a tract-like defect, thick walled, with some gas which extends to the left mid abdominal wall and presumed trocar or drainage tube site extending to the subcutaneous gas. In the right lower abdominal wall along the inferior rectus muscle and subcutaneous tissues is a small fluid and gas collection approximately 4.0 x 1.4 cm which also extends towards the skin surface site. URINARY BLADDER: Unremarkable. REPRODUCTIVE: Unremarkable. OSSEOUS STRUCTURES: Advanced degenerative changes in the thoracolumbar spine. Various degrees of spinal canal foraminal narrowing. No acute bony abnormality. OTHER: None. IMPRESSION: 1. Postop changes of sigmoid colon resection. There is abnormal appearance at the proximal anastomosis. Indeterminate whether this is a anastomotic breakdown, obstruction or even perhaps ischemic breakdown. 2. Just superior to this area is what appears to be likely separate fistulous type tract which courses along small bowel extending through the anterior peritoneal cavity to the presumed trocar or perhaps drain tube tract. This however likely extends to the area of breakdown. If clinically warranted, this could be further evaluated with fistulogram. 3. There does appear to be a small potentially developing additional abdominal wall abscess over the right lower rectus abdominis muscle. 4. Trace pleural effusions. Dictated on workstation # [id number] Dict: 04/30/23 1909 Trans: 04/30/231929 [facility] [id number] Interpreted by: MAXIMO RICH DO Electronically signed by: Departure Communication (Admissions) Time/Spoke to Admitting Phy: 20:08 Dr. Sanchez, general surgery Impression Primary Impression: Post op infection Additional Impression: Abdominal abscess Disposition: ADMITTED INPATIENT Condition: Stable Admissions Decision to Admit Reason: Admit from ER (General) Decision to Admit/Date: Apr 30, 2023 Time/Decision to Admit Time: 20:08 Departure-Patient Inst. Referrals: MILLA CENTENO DO (PCP/Family) Primary Care Physician Scripts Levofloxacin (Levofloxacin) 750 Mg Tablet 750 MG PO DAILY, #10 TAB Prov: CARLOS SANCHEZ MD 05/02/23 Copy Copies To 1: CARLOS SANCHEZ MD, STORMY D APRN Apr 30, 2023 18:43
[2023-04-30 18:44] LABS: BASOPHILS # (AUTO) 0.1 10^3/uL (0.0-0.1); BASOPHILS % (AUTO) 1 % (0-10); EOSINOPHILS # (AUTO) 0.1 10^3/uL (0.0-0.3); EOSINOPHILS % (AUTO) 1 % (0-10); HEMATOCRIT 34 % (40-54); HEMOGLOBIN 11.9 g/dL (13.3-17.7); LYMPHOCYTES # (AUTO) 1.3 10^3/uL (1.0-4.0); LYMPHOCYTES % (AUTO) 8 % (12-44); MEAN CORPUSCULAR HEMOGLOBIN 30 pg (25-34); MEAN CORPUSCULAR HGB CONC 35 g/dL (32-36); MEAN CORPUSCULAR VOLUME 87 fL (80-99); MEAN PLATELET VOLUME 8.7 fL (9.0-12.2); MONOCYTES # (AUTO) 1.2 10^3/uL (0.0-1.0); MONOCYTES % (AUTO) 8 % (0-12); NEUTROPHILS # (AUTO) 12.5 10^3/uL (1.8-7.8); NEUTROPHILS % (AUTO) 82 % (42-75); PLATELET COUNT 615 10^3/uL (130-400); WHITE BLOOD COUNT 15.3 10^3/uL (4.3-11.0)
[2023-04-30] MEDS ORDERED: NS IV 1000 ML 1,000 ML IV SCH (18:45)
[2023-04-30] MEDS ORDERED: PIPERACILLIN SODIUM/TAZOBACTAM 4.5 GM in NS (IVPB) 100 ML IV ONE (18:45)
--- NOTE | 2023-04-30 18:51 | Diagnostic Imaging Report ---
INDICATION: Fever, cough . TECHNIQUE: Single view chest 6:47 PM. CORRELATION STUDY: 04/15/2023. FINDINGS: The heart size, mediastinal configuration and pulmonary vascularity are within normal limits. Question of minimal infiltrate in right infrahilar region. Left-sided central line has been removed. IMPRESSION: Question of minimal infiltrate in right infrahilar region. Dictated by: Dictated on workstation # [id number]
[2023-04-30 18:56] LABS: PROTHROMBIN TIME PATIENT 13.4 SEC (12.2-14.7)
[2023-04-30] MEDS ORDERED: IOHEXOL 350 MG/ML 100 ML (OMNIPAQUE 350) VIAL IV ONE (19:00)
[2023-04-30] MEDS ORDERED: HOLD METFORMIN - RECEIVED CONTRAST 20 ML VIAL IV SCH (19:00)
[2023-04-30] MEDS ORDERED: NS 100 ML (IVPB) BAG IV ONE (19:00)
[2023-04-30 19:07] LABS: BAND NEUTROPHILS 6 %; BASOPHILS % (MANUAL) 0 %; EOSINOPHILS % (MANUAL) 0 %; LYMPHOCYTES % (MANUAL) 9 %; MONOCYTES % (MANUAL) 4 %; NEUTROPHILS % (MANUAL) 81 %; RBC MORPH NORMAL
[2023-04-30 19:20] LABS: ALBUMIN 3.9 GM/DL (3.2-4.5)
[2023-04-30 19:21] LABS: POTASSIUM 3.5 MMOL/L (3.6-5.0)
[2023-04-30 19:22] LABS: CALCIUM 9.6 MG/DL (8.5-10.1)
[2023-04-30 19:23] LABS: TOTAL PROTEIN 7.6 GM/DL (6.4-8.2)
[2023-04-30 19:25] LABS: BILIRUBIN,TOTAL 0.6 MG/DL (0.1-1.0)
[2023-04-30 19:27] LABS: CREATININE SERUM 0.88 MG/DL (0.60-1.30)
[2023-04-30 19:32] LABS: BILIRUBIN,URINE NEGATIVE (NEGATIVE); CLARITY,URINE CLEAR; COLOR,URINE YELLOW; GLUCOSE, URINE (UA) NEGATIVE (NEGATIVE); KETONES,URINE NEGATIVE (NEGATIVE); LEUKOCYTE ESTERASE ,URINE NEGATIVE (NEGATIVE); NITRITE,URINE NEGATIVE (NEGATIVE); PROTEIN,URINE TRACE (NEGATIVE)
--- NOTE | 2023-04-30 19:32 | Diagnostic Imaging Report ---
PROCEDURE: CT abdomen and pelvis with contrast. TECHNIQUE: Multiple contiguous axial images were obtained through the abdomen and pelvis after administration of intravenous contrast. Auto Exposure Controls were utilized during the CT exam to meet ALARA standards for radiation dose reduction. All CT scans use one or more of the following dose optimizing techniques: automated exposure control, MA and/or KvP adjustment based on patient size and exam type or iterative reconstruction. INDICATION: 62-year-old male, increased generalized weakness, fever, abdominal pain. Report of bowel resection on 04/14. Drainage at incision. CORRELATION STUDY: None. FINDINGS: LOWER THORAX: Suggestion of likely minimal scarring or atelectasis at both lung bases, left greater than right. Trace left pleural effusion. LIVER: Mild steatosis. GALLBLADDER: Contracted but otherwise unremarkable. SPLEEN: Unremarkable. PANCREAS: Atrophic ADRENAL GLANDS: Unremarkable. 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 Otherwise normal enhancement. No obstruction. ABDOMINAL AORTA: Unremarkable, nonaneurysmal. A few shotty aortocaval and mesenteric lymph nodes. GASTROINTESTINAL TRACT: Apparent surgical changes in the sigmoid colon. Just proximal to the presumed anastomotic suture line and continues with more proximal colon is a large gas and likely stool collection measuring approximately 10 x 6 cm. Additionally, anterior left upper quadrant appears to be just above this area versus along small bowel is a tract-like defect, thick walled, with some gas which extends to the left mid abdominal wall and presumed trocar or drainage tube site extending to the subcutaneous gas. In the right lower abdominal wall along the inferior rectus muscle and subcutaneous tissues is a small fluid and gas collection approximately 4.0 x 1.4 cm which also extends towards the skin surface site. URINARY BLADDER: Unremarkable. REPRODUCTIVE: Unremarkable. OSSEOUS STRUCTURES: Advanced degenerative changes in the thoracolumbar spine. Various degrees of spinal canal foraminal narrowing. No acute bony abnormality. OTHER: None. IMPRESSION: 1. Postop changes of sigmoid colon resection. There is abnormal appearance at the proximal anastomosis. Indeterminate whether this is a anastomotic breakdown, obstruction or even perhaps ischemic breakdown. 2. Just superior to this area is what appears to be likely separate fistulous type tract which courses along small bowel extending through the anterior peritoneal cavity to the presumed trocar or perhaps drain tube tract. This however likely extends to the area of breakdown. If clinically warranted, this could be further evaluated with fistulogram. 3. There does appear to be a small potentially developing additional abdominal wall abscess over the right lower rectus abdominis muscle. 4. Trace pleural effusions. Dictated by: Dictated on workstation # [id number]
[2023-04-30 19:47] LABS: BACTERIA,URINE NEGATIVE /HPF
[2023-04-30 19:48] LABS: AMORPHOUS SEDIMENT,UR RARE AMOR PHOSPHATE /LPF
[2023-04-30 21:27] VITALS: BP 129/79
[2023-04-30] MEDS ORDERED: NS IV 1000 ML 1,000 ML ONE (21:58)
[2023-04-30] MEDS ORDERED: fentaNYL INJ 100 MCG/2 ML AMP IVP PRN (23:00)
[2023-04-30] MEDS ORDERED: ONDANSETRON 4 MG/2 ML (SDV) Z0FRAN IVP PRN (23:00)
[2023-04-30] MEDS ORDERED: HYDROcodone/APAP 7.5 MG/325 MG (LORTAB, LORCET PLUS) TABLET PO PRN (23:00)
--- NOTE | 2023-04-30 23:36 | HISTORY AND PHYSICAL ---
ATTENDING ADMITTING PHYSICIAN: Dr. Brock Clark. HISTORY OF PRESENT ILLNESS: The patient is a 62-year-old male who had developed significant left upper quadrant abdominal pain 1 week prior to presenting to his primary care physician's office. A CT scan was performed, which did show sigmoid diverticulitis with a microperforation and a small abscess 1.7 cm in size. He was treated conservatively with outpatient antibiotics. He underwent a repeat CT scan, which did show a slight increase in the size of the abscess to 2 cm. We continued with oral antibiotics and he clinically felt much better and was otherwise eating well, having normal bowel movements and minimal abdominal pain. Another followup CT scan was performed on 03/07/2023, which did show the persistent diverticulitis; however, no change in the size of the abscess. His white count was also normal. Several weeks later, he underwent a colonoscopy, which did show significant diverticulosis of the sigmoid colon as well as mild purulence within some of the diverticula; however, no redness or erythematous changes of the colonic mucosa to indicate any active diverticulitis and more resolution of the previous episode. We had continued him on oral antibiotics. He continued to be asymptomatic. The patient did decide to proceed with a laparoscopic low anterior colorectal resection, which was performed laparoscopically on 04/14/2023. The patient did well postoperatively. Initially did have some low-grade fevers and was not ambulating well. He did develop atelectasis and shortness of breath and was transferred to the ICU. A spiral CT scan of the chest was performed, which did not show any pulmonary embolism; however, more consistent with atelectasis. His breathing improved and he was sent back to the general surgical floor. Over time, he slowly was able to increase ambulation and will use his incentive spirometer. We slowly weaned him off the HOTEL MANAGER pump and transition him to oral pain medication. His white count also trended down to a normal range. On postoperative day #3, he did begin to pass flatus. Eventually on postoperative day #5, he had 2 large bowel movements. He was initially on a clear liquid diet, which was advanced to a low-residue diet, which he was able to tolerate. He was then discharged home on 04/20/2023. He presented to the emergency department tonight with an elevated temperature, which had just started today. He states that he has some discomfort in the left lower abdominal quadrant; however, not severe. He states that he did have 2 loose bowel movements today. There was also an area of induration along the lower abdominal incision consistent with a wound infection. A CT scan was performed, which did show gas and stool within the colon. There was no free air. There was a tract extending from this region upward towards the left lateral abdomen where his Dillan-Toscano drain was placed surgically and removed on the day of discharge. The radiologist's interpretation was that they could not rule out a fistula. There was also some edema and a small fluid collection approximately 4 x 1.4 cm along the lower abdominal incision consistent with a small abscess. PAST MEDICAL HISTORY: Hypertension, hypercholesterolemia, diabetes, history of complicated diverticulitis, degenerative joint disease. PAST SURGERIES: Laparoscopic low anterior colorectal resection 04/14/2023, right shoulder arthroscopy, bilateral lateral epicondyle release. ALLERGIES: NO KNOWN DRUG ALLERGIES. MEDICATIONS: Rosuvastatin 5 mg daily, atenolol/chlorthalidone 50/25 mg daily, metformin 500 mg b.i.d. SOCIAL HISTORY: Negative smoke, negative alcohol. FAMILY HISTORY: Father, diabetes, hypertension. PHYSICAL EXAMINATION: VITAL SIGNS: Temperature 36.0, blood pressure 150/89, pulse 72, respirations 18, pulse ox 94% on room air. REVIEW OF SYSTEMS: A well-nourished male, currently in no acute distress. He does feel a bit fatigued and states that he did have fevers earlier today; however, none currently. No nausea, vomiting with 2 episodes of diarrhea today, which were foul smelling, no red blood per rectum, no dark tarry stools. No recent inadvertent weight loss. Pain and redness along the lower abdominal incision. All other review of systems negative. PHYSICAL EXAMINATION: CHEST: Clear. Good breath sounds bilaterally. HEART: Regular. No murmurs. EXTREMITIES: No lower extremity edema. Negative Homans sign. HEENT: No scleral icterus. No cervical lymphadenopathy. ABDOMEN: Soft. There is tenderness along the lower abdominal incision as well as in the left lower abdominal quadrant. No peritoneal signs. No hernias. SKIN: Warm, dry. LABORATORY DATA: WBC 15.3, hemoglobin 11.9, hematocrit 34, platelets 615, BUN 14, creatinine 0.88, glucose 138. ASSESSMENT AND PLAN: A 62-year-old male status post laparoscopic low anterior colorectal resection for acute complicated diverticulitis. At this time, it appears that he has a wound infection as well as a small abscess along the lower abdominal incision. There is also a tract from the area of postsurgical changes to the previous exit site of the Dillan-Toscano drain with the possibility of a fistula formation. For now, we will admit him and proceed with IV hydration as well as IV antibiotics and proceed with opening of the lower incision to allow for proper drainage. We will likely also order a fistulogram to see if there is a communication between the area of previous surgery and the previous peritoneal drain exit site. Job ID: [id number] DocumentID: [id number] Dictated Date: 04/30/2023 22:57:04 Rider Ticket Worker Date: 04/30/2023 23:34:00 Dictated By: CARLOS GODFREY MD
[2023-04-30 23:41] VITALS: BP 133/76
[2023-05-01] MEDS: NS IV 1000 ML 1,000 ML IV SCH ×3 (00:50→17:38)
[2023-05-01] MEDS ORDERED: ACETAMINOPHEN 325 MG TABLET PO PRN (01:00)
[2023-05-01] MEDS ORDERED: diphenhydrAMINE 25 MG TAB (BENADRYL) PO PRN (01:00)
[2023-05-01] MEDS ORDERED: PROMETHAZINE INJ 25 MG/ML (PHENERGAN) AMP IVP PRN (01:00)
[2023-05-01] MEDS: PIPERACILLIN SODIUM/TAZOBACTAM 4.5 GM in NS (IVPB) 100 ML IV SCH ×3 (01:19→17:35)
[2023-05-01 04:00] VITALS: BP 137/78
[2023-05-01 05:37] LABS: BASOPHILS # (AUTO) 0.1 10^3/uL (0.0-0.1); BASOPHILS % (AUTO) 1 % (0-10); EOSINOPHILS # (AUTO) 0.2 10^3/uL (0.0-0.3); EOSINOPHILS % (AUTO) 1 % (0-10); HEMATOCRIT 32 % (40-54); LYMPHOCYTES # (AUTO) 1.6 10^3/uL (1.0-4.0); LYMPHOCYTES % (AUTO) 13 % (12-44); MEAN CORPUSCULAR HEMOGLOBIN 30 pg (25-34); MEAN CORPUSCULAR HGB CONC 35 g/dL (32-36); MEAN CORPUSCULAR VOLUME 87 fL (80-99); MEAN PLATELET VOLUME 8.8 fL (9.0-12.2); MONOCYTES # (AUTO) 1.3 10^3/uL (0.0-1.0); MONOCYTES % (AUTO) 10 % (0-12); NEUTROPHILS # (AUTO) 9.3 10^3/uL (1.8-7.8); NEUTROPHILS % (AUTO) 75 % (42-75); PLATELET COUNT 536 10^3/uL (130-400); WHITE BLOOD COUNT 12.5 10^3/uL (4.3-11.0)
[2023-05-01 05:46] LABS: POTASSIUM 3.5 MMOL/L (3.6-5.0)
[2023-05-01 05:47] LABS: CALCIUM 9.1 MG/DL (8.5-10.1)
[2023-05-01 05:51] LABS: CREATININE SERUM 0.74 MG/DL (0.60-1.30)
[2023-05-01 08:03] VITALS: BP 129/84
[2023-05-01] MEDS ORDERED: LIDOCAINE 1% INJ 20 ML VIAL INJ ONE (08:30)
[2023-05-01] MEDS: PANTOPRAZOLE 40 MG (PROTONIX) VIAL IV SCH (08:30)
[2023-05-01] MEDS ORDERED: fentaNYL INJ 100 MCG/2 ML AMP IVP ONE (11:00)
[2023-05-01] MEDS ORDERED: LORazepam INJ 2 MG/ML (ATIVAN) VIAL IVP ONE (11:00)
[2023-05-01 12:52] VITALS: BP 125/83
[2023-05-01 16:00] VITALS: BP 134/76
[2023-05-01 19:43] VITALS: BP 151/84
[2023-05-01] MEDS: MELATONIN 3 MG TABLET PO SCH (20:59)
[2023-05-01 23:19] VITALS: BP 136/86
[2023-05-02] MEDS: PIPERACILLIN SODIUM/TAZOBACTAM 4.5 GM in NS (IVPB) 100 ML IV SCH ×3 (00:19→16:53)
[2023-05-02 03:26] VITALS: BP 135/86
[2023-05-02] MEDS: NS IV 1000 ML 1,000 ML IV SCH ×2 (03:56→16:53)
[2023-05-02 07:59] VITALS: BP 138/87
[2023-05-02] MEDS: PANTOPRAZOLE 40 MG (PROTONIX) VIAL IV SCH (08:27)
[2023-05-02 12:00] VITALS: BP 138/92
[2023-05-02] MEDS ORDERED: IBUP-2473 PO (12:25)
[2023-05-02] MEDS ORDERED: HYDR-3817 PO (12:25)
[2023-05-02 16:47] VITALS: BP 138/84
[2023-05-02 16:59] LABS: BASOPHILS # (AUTO) 0.1 10^3/uL (0.0-0.1); BASOPHILS % (AUTO) 1 % (0-10); EOSINOPHILS # (AUTO) 0.1 10^3/uL (0.0-0.3); EOSINOPHILS % (AUTO) 1 % (0-10); HEMATOCRIT 33 % (40-54); HEMOGLOBIN 11.5 g/dL (13.3-17.7); LYMPHOCYTES # (AUTO) 1.2 10^3/uL (1.0-4.0); LYMPHOCYTES % (AUTO) 14 % (12-44); MEAN CORPUSCULAR HEMOGLOBIN 30 pg (25-34); MEAN CORPUSCULAR HGB CONC 34 g/dL (32-36); MEAN CORPUSCULAR VOLUME 88 fL (80-99); MEAN PLATELET VOLUME 8.5 fL (9.0-12.2); MONOCYTES % (AUTO) 11 % (0-12); NEUTROPHILS # (AUTO) 6.5 10^3/uL (1.8-7.8); NEUTROPHILS % (AUTO) 73 % (42-75); PLATELET COUNT 495 10^3/uL (130-400); WHITE BLOOD COUNT 8.9 10^3/uL (4.3-11.0)
[2023-05-02] MEDS ORDERED: LEVO750T PO (18:22)
--- NOTE | 2023-05-02 18:23 | Discharge Inst-Surgical ---
D/C Lap Instructions-KIDO New, Converted, or Re-Newed RX: RX on Chart Follow Up Appt in 2 weeks Activity as tolerated Low residue diet next 4 weeks. Avoid Alcohol, Caffeine, Spicy [place] and Acid foods. Drink 64 fluid oz or more of fluids per day. Symptoms to Report: Fever over 101 degree F, Nausea/Vomiting If any problems/questions: Contact your physician or go to Emergency Room CARLOS GODFREY MD May 02, 2023 18:23
--- NOTE | 2023-05-02 18:26 | Progress Note ---
Subjective Date Seen by a Provider: May 02, 2023 Time Seen by a Provider: 18:00 Subjective/Events-last exam doing well. no fever/chills. tolerating diet and having BM's. open wound clean/dry. Focused Exam Lactate Level 04/30/23 18:34: Lactic Acid Level 1.41 Objective Exam Vital Signs Date Time Temp Pulse Resp B/P (MAP) Pulse Ox O2 Delivery O2 Flow Rate FiO2 05/02/23 16:47 36.8 79 18 138/84 (102) 96 Nasal Cannula 05/02/23 13:00 80 05/02/23 12:00 36.7 78 18 138/92 (107) 95 Room Air 05/02/23 09:12 Room Air 05/02/23 07:59 36.4 82 18 138/87 (104) 94 Room Air 05/02/23 07:00 79 05/02/23 03:26 36.7 72 18 135/86 (102) 94 Room Air 05/02/23 01:00 80 05/01/23 23:19 36.5 74 18 136/86 (103) 93 Room Air 05/01/23 20:50 Room Air 05/01/23 19:43 37.2 80 18 151/84 (106) 95 Room Air 05/01/23 19:10 Room Air 05/01/23 19:00 79 I & O 05/02/23 07:00 Intake Total 3580 ml Output Total 975 ml Balance 2605 ml Capillary Refill : Less Than 3 Seconds General Appearance: No Apparent Distress HEENT: PERRL/EOMI Neck: Full Range of Motion Respiratory: Chest Non Tender, Lungs Clear, Normal Breath Sounds Cardiovascular: Regular Rate, Rhythm Gastrointestinal: normal bowel sounds, soft, other (open wound packed. no surrounding redness/erythema) Extremity: Normal Capillary Refill Neurologic/Psychiatric: Alert, Oriented x3 Skin: Normal Color Lymphatic: No Adenopathy Results Lab Laboratory Tests 05/02/23 16:50: White Blood Count 8.9, Red Blood Count 3.81L, Hemoglobin 11.5L, Hematocrit 33L, Mean Corpuscular Volume 88, Mean Corpuscular Hemoglobin 30, Mean Corpuscular Hemoglobin Concent 34, Red Cell Distribution Width 12.5, Platelet Count 495H, Mean Platelet Volume 8.5L, Immature Granulocyte % (Auto) 0, Neutrophils (%) (Auto) 73, Lymphocytes (%) (Auto) 14, Monocytes (%) (Auto) 11, Eosinophils (%) (Auto) 1, Basophils (%) (Auto) 1, Neutrophils # (Auto) 6.5, Lymphocytes # (Auto) 1.2, Monocytes # (Auto) 1.0, Eosinophils # (Auto) 0.1, Basophils # (Auto) 0.1, Immature Granulocyte # (Auto) 0.0 Microbiology 05/01/23 Gram Stain - Final, Resulted 05/01/23 Wound Culture - Preliminary, Resulted Pseudomonas aeruginosa 04/30/23 Urine Culture - Final, Complete NO GROWTH 04/30/23 Blood Culture - Preliminary, Resulted No growth Assessment/Plan Assessment/Plan Assess & Plan/Chief Complaint lower abd wall abscess s/p laparoscopic low anterior colorectal resection s/p incision and drainage. culture grew pseudomonas. cont iv zosyn for another day then levaquin po 10 days. pack wound wet to dry bid. CARLOS GODFREY MD May 02, 2023 18:26
[2023-05-02 19:21] VITALS: BP 137/84
[2023-05-02] MEDS: MELATONIN 3 MG TABLET PO SCH (20:26)
[2023-05-02 23:06] VITALS: BP 141/88
[2023-05-03] MEDS: PIPERACILLIN SODIUM/TAZOBACTAM 4.5 GM in NS (IVPB) 100 ML IV SCH ×2 (00:25→08:53)
[2023-05-03 03:10] VITALS: BP 115/70
[2023-05-03] MEDS: NS IV 1000 ML 1,000 ML IV SCH (03:11)
[2023-05-03 07:35] VITALS: BP 157/94
[2023-05-03] MEDS: PANTOPRAZOLE 40 MG (PROTONIX) VIAL IV SCH (08:53)
[2023-05-03 12:06] VITALS: BP 157/94
--- NOTE | 2023-05-03 19:14 | OPERATIVE REPORT ---
ATTENDING PRIMARY CARE PHYSICIAN: Dr. Brock Clark. PREOPERATIVE DIAGNOSIS: Lower abdominal incisional wound abscess. POSTOPERATIVE DIAGNOSES: Lower abdominal incisional wound abscess with an abscess cavity approximately 3 x 2 cm in size within subcutaneous tissue PROCEDURE: Incision and drainage, abdominal wall abscess. SURGEON: Carlos Godfrey MD ANESTHESIA: Local. ESTIMATED BLOOD LOSS: Minimal. FINDINGS: Lower abdominal incisional wound abscess with an abscess cavity approximately 3 x 2 cm in size within subcutaneous tissue. DISPOSITION: The patient tolerated the procedure well. INDICATIONS: The patient is a 62-year-old male who underwent a laparoscopic low anterior colorectal resection for severe complicated diverticulitis on 04/14/2023. He is currently 17 days postop and states that he is doing well, tolerating a diet and having normal loose bowel movements on a daily basis. He states that he just felt weak and developed fevers the day of admission. A CT scan was performed, which did show an abscess in the abdominal wall along the previous incision site. There was also some postsurgical changes along the area of surgical resection and a small tract through which the previous Dillan-Toscano drain was placed and removed. The patient was admitted, started on IV fluids as well as IV antibiotics and he remained afebrile. His lap count was initially slightly elevated at 15,000; however, did normalize. DESCRIPTION OF PROCEDURE: The abdomen was prepped and draped in standard surgical fashion. 1% lidocaine was then used to anesthetize the overlying skin to the previous incision site. The previous incision site was then opened using a #15 blade. Subcutaneous tissue was then dissected with a #15 blade as well. The abscess pocket was identified and approximately 3 x 2 cm in size and any loculations broken up with finger dissection. The fascia was intact. The abscess cavity was then irrigated with saline and then packed wet-to-dry with visualization of good hemostasis. The patient tolerated the procedure well. We will continue with wet-to-dry dressing changes on a b.i.d. basis and allow the wound to heal by secondary intention. He is otherwise eating well, having normal bowel movements, is afebrile and we will have him continue with oral antibiotics and have him follow up in the office. Job ID: [id number] DocumentID: [id number] Dictated Date: 05/03/2023 12:39:44 Night Assistant Date: 05/03/2023 19:00:00 Dictated By: CARLOS GODFREY MD MTDD
== END 2023-05-03 12:17 | disposition home or self-care (01) ==
LOC: EDUNIT# 18:19 → ER 18:21 → UNDOADMOB 21:07 → 4TH 21:07 → UNDODISOB 05-03 12:17
PROVIDERS: ADMIT Surgery; ATTEND Surgery
DX: T81.41XA Infection following a procedure, superficial incisional surgical site, initial encounter (principal); Z87.891 Personal history of nicotine dependence; Z90.49 Acquired absence of other specified parts of digestive tract
CPT/HCPCS: 10180; 71045; 74177; 80048; 80053; 81000; 83605; 85007; 85025 ×2; 85027; 85610; 85730; 86141; 87040; 87070 ×2; 87077 ×2; 87088; 87186; 87205 ×2; 94664; 94760; 96361 ×2; 96366 ×3; 96375; 96376 ×3; 99284; G0378; 36415

== ENCOUNTER 2023-07-14 05:27 | Outpatient (CLI) | payer OTHER ==
[~2023-07-14] VITALS: Ht 177.8 cm; Wt 109.1 kg
[~2023-07-14 05:27] MED LIST changes: +IBUP-2473 PO; +LEVO750T PO
== END 2023-07-15 12:47 | disposition home or self-care (01) ==
LOC: PREOP 05:27
PROVIDERS: ATTEND Surgery
DX: Z01.818 Encounter for other preprocedural examination (principal)

== ENCOUNTER 2023-07-21 10:05 | Day surgery (SDC) | payer OTHER ==
[~2023-07-21] VITALS: Ht 177.8 cm; Wt 109.1 kg
[2023-07-21] VITALS (11 sets, daily range): BP systolic 104–154; BP diastolic 65–98
--- NOTE | 2023-07-21 10:17 | Progress Note-Pre Operative ---
Pre-Operative Progress Note Date H&P Reviewed: Jul 21, 2023 Time H&P Reviewed: 10:15 History & Physical: H&P Reviewed, Patient Examed, No changes noted Pre-Operative Diagnosis: Bilateral inguinal hernias, incisional hernia BENNY MORA APRN Jul 21, 2023 10:17
[2023-07-21] MEDS ORDERED: HYDR-3817 PO (10:19)
--- NOTE | 2023-07-21 10:19 | Discharge Inst-Surgical ---
D/C Lap Instructions-KIDO Reconcile Patient Problems Problems Reviewed?: Yes New, Converted, or Re-Newed RX: RX on Chart Follow Up Appt in 2 weeks Activity as tolerated No driving for 24 hours No driving while on pain medications Incentive Spirometry use every 2 hours while awake Regular Diet Symptoms to Report: Fever over 101 degree F, Nausea/Vomiting Infection Signs and Symptoms to report: Increased redness, Foul odor of wound, Increased drainage Bathing instructions: May shower Operative Area Clean/Dry; Keep incision clean/dry If any problems/questions: Contact your physician or go to Emergency Room BENNY MORA APRN Jul 21, 2023 10:19
[2023-07-21] MEDS ORDERED: ACETAMINOPHEN 325 MG TABLET PO PRN (10:30)
[2023-07-21] MEDS ORDERED: HYDROcodone/ACETAMINOPHEN 5 MG/325 MG TABLET PO ONE (10:30)
[2023-07-21] MEDS ORDERED: ONDANSETRON INJECTION 4 MG/2 ML (SDV) IVP PRN ×2 (10:30→13:45)
[2023-07-21] MEDS ORDERED: morphine INJ 10 MG/ML 1ML (SYR OR VIAL) IVP PRN (10:30)
[2023-07-21] MEDS ORDERED: LIDOCAINE/EPI 1%-1:200,000 (XYLOCAINE) 30 ML VIAL ONE (10:31)
[2023-07-21] MEDS ORDERED: LIDOCAINE PF 2% 5 ML VIAL ONE (10:39)
[2023-07-21] MEDS ORDERED: dexAMETHasone INJ 10 MG/ML 1 ML VIAL ONE (10:39)
[2023-07-21] MEDS ORDERED: ONDANSETRON INJECTION 4 MG/2 ML (SDV) ONE (10:39)
[2023-07-21] MEDS ORDERED: proPOfol INJECTION 200 MG/20 ML VIAL IV ONE (10:39)
[2023-07-21] MEDS ORDERED: SEVOFLURANE (ULTANE) 15 ML INHAL SOLN ONE ×2 (10:39→13:26)
[2023-07-21] MEDS ORDERED: fentaNYL INJECTION 100 MCG/2 ML VIAL ONE (10:39)
[2023-07-21] MEDS ORDERED: MIDAZOLAM INJ 2 MG/2 ML VIAL ONE (10:39)
[2023-07-21] MEDS: LACTATED RINGERS 1,000 ML 1,000 ML IV PRN ×3 (10:41→13:38)
[2023-07-21] MEDS ORDERED: ceFAZolin INJECTION 2,000 MG in NS (IVPB) 50 ML 50 ML IV ONE (10:45)
[2023-07-21 11:12] LABS: BASOPHILS # (AUTO) 0.1 10^3/uL (0.0-0.1); BASOPHILS % (AUTO) 1 % (0-10); EOSINOPHILS # (AUTO) 0.3 10^3/uL (0.0-0.3); EOSINOPHILS % (AUTO) 5 % (0-10); HEMATOCRIT 40 % (40-54); HEMOGLOBIN 13.2 g/dL (13.3-17.7); LYMPHOCYTES # (AUTO) 1.7 10^3/uL (1.0-4.0); LYMPHOCYTES % (AUTO) 26 % (12-44); MEAN CORPUSCULAR HEMOGLOBIN 29 pg (25-34); MEAN CORPUSCULAR HGB CONC 33 g/dL (32-36); MEAN CORPUSCULAR VOLUME 89 fL (80-99); MONOCYTES # (AUTO) 0.5 10^3/uL (0.0-1.0); MONOCYTES % (AUTO) 8 % (0-12); NEUTROPHILS # (AUTO) 3.9 10^3/uL (1.8-7.8); NEUTROPHILS % (AUTO) 59 % (42-75); PLATELET COUNT 334 10^3/uL (130-400); WHITE BLOOD COUNT 6.6 10^3/uL (4.3-11.0)
[2023-07-21] MEDS ORDERED: GLYCOPYRROLATE INJ 0.2 MG/ML 2 ML VIAL ONE ×2 (11:31→12:37)
[2023-07-21] MEDS ORDERED: LIDOCAINE/EPI 1%-1:200,000 (XYLOCAINE) 30 ML VIAL INJ ONE (11:49)
[2023-07-21] MEDS ORDERED: HYDROmorphone INJECTION 2 MG/ML VIAL ONE (12:28)
[2023-07-21] MEDS ORDERED: NEOSTIGMINE 1 MG/1ML 10 ML VIAL ONE (12:37)
--- NOTE | 2023-07-21 13:17 | Progress Note-Post Operative ---
Post-Operative Progess Note Surgeon (s)/Rail Splitter (s) Surgeon CARLOS GODFREY MD Rail Splitter: laci valera VIDEO SOFTWARE ENGINEER Pre-Operative Diagnosis Bilateral inguinal hernias, incisional hernia Post-Operative Diagnosis bilateral indirect inguinal hernia, incisional hernia Procedure & Operative Findings Date of Procedure 07/21/23 Procedure Performed/Findings laparoscopic bilateral inguinal hernia repair with mesh. ventral abdominal incisional hernia repair with mesh. Anesthesia Type get Estimated Blood Loss Estimated blood loss (mL): minimal Specimens/Packing Specimens Removed none CARLOS GODFREY MD Jul 21, 2023 13:17
[2023-07-21] MEDS ORDERED: KETOROLAC INJ 30 MG/ML VIAL ONE (13:27)
[2023-07-21] MEDS ORDERED: HYDROmorphone INJECTION 2 MG/ML VIAL IV ONE (13:45)
--- NOTE | 2023-07-21 19:40 | OPERATIVE REPORT ---
DATE OF SERVICE: 07/21/2023 ATTENDING PRIMARY CARE PHYSICIAN: Dr. Brock Clark. PREOPERATIVE DIAGNOSIS: Bilateral symptomatic reducible inguinal hernias, symptomatic ventral abdominal incisional hernia. POSTOPERATIVE DIAGNOSES: Bilateral reducible indirect inguinal hernias infraumbilical incisional hernia. PROCEDURE: Laparoscopic bilateral inguinal hernia repair with mesh, laparoscopic ventral abdominal incisional hernia repair with mesh. SURGEON: Carlos Godfrey MD WATER/WASTEWATER PROJECT MANAGER: Jl Gandih APRN ANESTHESIA: General endotracheal. ESTIMATED BLOOD LOSS: Minimal. FINDINGS: Bilateral reducible indirect inguinal hernias infraumbilical incisional hernia. DISPOSITION: The patient tolerated the procedure well. INDICATIONS: The patient is a 62-year-old male who had issues with a complicated diverticulitis encompassing microperforation and abscess formation. He was treated conservatively initially; however, did continue to have issues with pain and inflammatory changes on repeat CT scans. The patient eventually opted for laparoscopic low anterior colorectal resection, which was done early 04/2023. He did well with the surgery and was eventually sent home. During the laparoscopic low anterior colorectal resection it was noted that he had bilateral inguinal hernias. Over the course of the past month, he also has developed an incisional hernia along the infraumbilical incision where the sigmoid colon was removed. This has grown larger in size and become painful. He also states that he has noticed increased pain, especially after doing lifting and exertion in the bilateral inguinal regions and upon examination, he was again found to have reducible bilateral inguinal hernias; however, tender to palpation. DESCRIPTION OF PROCEDURE: The patient was brought to the operating room, laid supine on the table. After adequate IV pain and sedative medications and general endotracheal intubation, the abdomen was prepped and draped in standard surgical fashion. A 0.5% Marcaine with epinephrine was used to anesthetize the overlying skin in the left lateral abdomen and a transverse skin incision made using a #15 blade. An 0 silk suture was applied to the medial aspect of the incision for retraction and the Veress needle inserted with a low opening pressure of 0 mmHg and the abdomen was then insufflated to 15 mmHg pressure. The Veress needle removed and a 5 mm trocar placed followed by a 5 mm 45-degree angle laparoscope visualized the peritoneal cavity. A 4-quadrant abdominal exploration was performed. Bilateral inguinal hernias identified, which appeared to be an indirect hernias with nothing within the hernia sac. There was an infraumbilical incisional hernia identified with a defect approximately 5 cm in size. Under direct visualization, we then proceeded to place bilateral 5 mm ports after the skin and peritoneal lining were anesthetized using 0.5% Marcaine with epinephrine and transverse skin incision was made using a #15 blade. The patient was then placed in a Trendelenburg position. We first prepared the left inguinal hernia by opening the peritoneal lining laterally towards the conjoined tendon and inguinal ligament using the Sonicision. We then proceeded medially until Raad's ligament was reached. We then proceeded with inferior dissection until they hernia sac was reduced. The cord and its surrounding contents identified and spared throughout the process. Good hemostasis was observed and a medium size 3DMax polypropylene mesh was then placed through the 10 mmport site and tacked to Raad's ligament medially with an AbsorbaTack into the inguinal ligament laterally. The peritoneal lining was then placed over the mesh and a few absorbable tacks placed to hold this in place with visualization of good hemostasis. In a similar manner, the right inguinal peritoneal lining was dissected encompassing the hernia sac. The cord and its contents identified and spared throughout the process. A similar right sided mesh was then placed into and tacked to Raad's ligament medially with an AbsorbaTack into the inguinal ligament laterally. The peritoneal lining was then placed over the mesh and a few absorbable tacks placed to hold this in place with visualization of good hemostasis. A Bard laparoscopic mesh was then placed through the 10 mm port site. This was a 15 cm round coated mesh. The included mesh balloon was then inflated. We then proceeded with placing absorbable tacks concentrically around the mesh to the fascia in a double crown manner with visualization of good hemostasis. The previous incision was opened using the previous incision for the incisional hernia was then opened and the hernia sac identified and completely dissected out and excised using electrocautery. The abdomen was desufflated and the remaining ports were removed. All skin incisions were closed using 4-0 Monocryl running subcuticular sutures. Wounds were then cleaned and covered with Dermabond. The patient tolerated the procedure well. We will start IV and oral pain medication as well as a clear liquid diet. Once tolerating clears with good pain control with oral pain medications, ambulating well, we will discharge him home where he will be instructed to do no heavy lifting or exertion for the next 6 weeks total. He will also be instructed to wear his abdominal binder as well as scrotal support for the next 2 weeks as well. Job ID: [id number] DocumentID: [id number] Dictated Date: 07/21/2023 13:26:41 Payroll Examiner Date: 07/21/2023 19:38:00 Dictated By: CARLOS GODFREY MD [facility]
== END 2023-07-21 15:15 ==
LOC: SDC 10:05
PROVIDERS: ATTEND Surgery
DX: K43.2 Incisional hernia without obstruction or gangrene (principal); K40.20 Bilateral inguinal hernia, without obstruction or gangrene, not specified as recurrent; K42.9 Umbilical hernia without obstruction or gangrene; Z28.310 Unvaccinated for COVID-19
CPT/HCPCS: 49593; 49650; 85025; 87081; C1781 ×4

== ENCOUNTER → 2023-09-22 | Outpatient (CLI) | payer OTHER ==
[~2023-09-22] MED LIST changes: +CHOL20002 PO; +L.AC1CAP6 PO; +ZINC50TA11 PO
== END | disposition home or self-care (01) ==
LOC: PREOP 05:36
PROVIDERS: ATTEND Surgery
DX: Z01.818 Encounter for other preprocedural examination (principal)

== ENCOUNTER 2023-09-29 01:42 | Observation (INO) | payer OTHER ==
[~2023-09-29] VITALS: Ht 177.8 cm; Wt 114.0 kg
[~2023-09-29 01:42] MED LIST changes: -CHOL20002 PO; -L.AC1CAP6 PO; -ZINC50TA11 PO
--- NOTE | 2023-09-29 02:12 | ED Abdominal Pain ---
General Chief Complaint: Abdominal/GI Problems Stated Complaint: ABD PX Nursing Triage Note: TO ED VIA POV AND AMBULATORY TO ROOM 6 WITH C/O "SEVERE" ABD CRAMPING SINCE YESTERDAY AFTERNOON. PT STATES HE HAD A CT AT [facility] IN [place], [place] FOR UPCOMING HERNIA SURGERY Tuesday10/03/[address] ARDON AT [place], [place]. Source of Information: Patient Exam Limitations: No Limitations History of Present Illness Date Seen by Provider: Sep 29, 2023 Time Seen by Provider: 02:00 Initial Comments This 62-year-old gentleman presents to the emergency room with complaints of abdominal pain and cramping with bloating. He underwent a CT with oral contrast yesterday and started drinking the contrast on Tuesday. He has been experiencing escalating pain since then. He has nausea without vomiting. He has surgery scheduled for October [address] Ardon at [place] for a ventral hernia repair. He has had numerous procedures done over the past couple of years including colonoscopies, cholecystectomy, inguinal hernia repairs, partial colon resection due to diverticulitis, and debridement of an abdominal wall abscess. He does not yet know the results of the CT scan performed yesterday. He is afebrile. He denies diarrhea. He has not had a bowel movement or passed gas in more than a day. He describes his pain as crampy in nature and rated as 3/10 at. His primary care provider is Dr. Clark. His local surgeon is Dr. Sanchez. Allergies and Home Medications Allergies Coded Allergies: No Known Drug Allergies (Unverified , 07/21/23) Patient Home Medication List Home Medication List Reviewed: Yes Ascorbate Calcium (Vitamin C) 500 Mg Tablet, 500 MG PO DAILY, (Reported) Entered as Reported by: LINDA DAIGLE on 04/15/23 09 Aspirin (Aspirin EC) 81 Mg Tablet.dr 81 MG PO DAILY, (Reported) Entered as Reported by: LINDA DAIGLE on 04/15/23944 Atenolol/Chlorthalidone (Atenolol-Chlorthalidone 50-25) 50 Mg-25 Mg Tablet, 1 EA PO DAILY, (Reported) Entered as Reported by: LINDA DAIGLE on 04/15/23944 Cyanocobalamin (Vitamin B-12) (Vitamin B-12) 1,000 Mcg Tablet, 1,000 MCG PO DAILY, (Reported) Entered as Reported by: LINDA DAIGLE on 04/15/23 0945 Finasteride (Finasteride) 5 Mg Tablet, 5 MG PO HS, (Reported) Entered as Reported by: LINDA DAIGLE on 04/15/23944 Fish Oil/Dha/Epa (Fish Oil 1,200 mg Fish Oil) 1,200 Mg-144 Mg-216 Mg Capsule, 1 EACH PO DAILY, (Reported) Entered as Reported by: LINDA DAIGLE on 04/15/23 0945 Hydrocodone/Acetaminophen (Hydrocodone-Acetamin 7.5-325) 7.5 Mg-325 Mg Tablet, 1 EACH PO Q4H PRN for PAIN-BREAKTHROUGH Prescribed by: BENNY MORA on 07/21/23 1019 Metformin HCl (Metformin HCl) 500 Mg Tablet, 500 MG PO DAILY, (Reported) Entered as Reported by: SUKHDEV JONES on 02/14/19 0729 Tamsulosin HCl (Flomax) 0.4 Mg Cap, 0.4 MG PO HS, (Reported) Entered as Reported by: LINDA DAIGLE on 04/15/23 0945 Review of Systems Review of Systems Constitutional: no symptoms reported EENTM: No Symptoms Reported Respiratory: No Symptoms Reported Cardiovascular: No Symptoms Reported Gastrointestinal: See HPI Genitourinary: No Symptoms Reported Musculoskeletal: no symptoms reported Skin: no symptoms reported Psychiatric/Neurological: No Symptoms Reported Endocrine: No Symptoms Reported Past Ctylioa-Btdtfy-Xvsgmp Hx Patient Social History Tobacco Use?: No Substance use?: No Alcohol Use?: No Immunizations Up To Date Tetanus Booster (TDap): Unknown Influenza Vaccine Up-to-Date: No; Not Current First/Initial COVID19 Vaccinat: NO Second COVID19 Vaccination [place]: NO Third COVID19 Vaccination Date: NO Seasonal Allergies Seasonal Allergies: No Past Medical History Surgery/Hospitalization HX: bowel resection 04/14/23. Surgeries: Yes (BILt rotator cuff, shoulder scope, colonoscopy, partial colectomy) Abdominal (Inguinal hernia, partial colectomy, abdominal abscess), Gallbladder, Orthopedic, Vasectomy Respiratory: No Currently Using CPAP: No Currently Using BIPAP: No Cardiac: Yes High Cholesterol, Hypertension Neurological: No Sexually Transmitted Disease: No Genitourinary: Yes Kidney Stones Gastrointestinal: Yes Diverticulosis Musculoskeletal: No (rotator cuff repair, shoulder scope) Endocrine: Yes (pre DM) Diabetes, Non-Insulin dep HEENT: No Loss of Vision: Denies Hearing Impairment: Denies Cancer: No Psychosocial: Yes Integumentary: No Blood Disorders: No Adverse Reaction/Blood Tranf: No Physical Exam Vital Signs Vital Signs - First Documented 09/29/23 09/29/23 01:53 02:10 Temp 36.7 Pulse 85 Resp 18 B/P (MAP) 153/94 (113) Pulse Ox 92 O2 Delivery Room Air O2 Flow Rate 2.00 Capillary Refill : Less Than 3 Seconds Height/Weight/BMI Height: 5'11.00" Weight: 250lbs. 0.0oz. [id number]; 35.00 BMI Method: General Appearance: WD/WN, no apparent distress, obese HEENT: normal ENT inspection Neck: full range of motion Respiratory: lungs clear, normal breath sounds, no respiratory distress Cardiovascular: regular rate, rhythm, no edema, no murmur Gastrointestinal: soft, abnormal bowel sounds (Decreased), distended, tenderness (Generalized) Extremities: normal inspection, swelling (Mild lower extremity edema) Neurologic/Psychiatric: no motor/sensory deficits, alert, normal mood/affect, oriented x 3 Skin: normal color, warm/dry Progress/Results/Core Measures Results/Orders Lab Results Laboratory Tests Test 09/29/23 02:22 09/29/23 02:36 Range/Units White Blood Count 12.1 H 4.3-11.0 10^3/uL Red Blood Count 4.75 4.30-5.52 10^6/uL Hemoglobin 14.2 13.3-17.7 g/dL Hematocrit 40 40-54 % Mean Corpuscular Volume 84 80-99 fL Mean Corpuscular Hemoglobin 30 25-34 pg Mean Corpuscular Hemoglobin Concent 36 32-36 g/dL Red Cell Distribution Width 13.2 10.0-14.5 % Platelet Count 359 130-400 10^3/uL Mean Platelet Volume 9.0 9.0-12.2 fL Immature Granulocyte % (Auto) 0 % Neutrophils (%) (Auto) 81 H 42-75 % Lymphocytes (%) (Auto) 14 12-44 % Monocytes (%) (Auto) 4 0-12 % Eosinophils (%) (Auto) 0 0-10 % Basophils (%) (Auto) 0 0-10 % Neutrophils # (Auto) 9.8 H 1.8-7.8 10^3/uL Lymphocytes # (Auto) 1.7 1.0-4.0 10^3/uL Monocytes # (Auto) 0.5 0.0-1.0 10^3/uL Eosinophils # (Auto) 0.0 0.0-0.3 10^3/uL Basophils # (Auto) 0.0 0.0-0.1 10^3/uL Immature Granulocyte # (Auto) 0.1 0.0-0.1 10^3/uL Sodium Level 129 L 135-145 MMOL/L Potassium Level 2.9 L 3.6-5.0 MMOL/L Chloride Level 88 L 98-107 MMOL/L Carbon Dioxide Level 26 21-32 MMOL/L Anion Gap 15 H 5-14 MMOL/L Blood Urea Nitrogen 11 7-18 MG/DL Creatinine 0.76 0.60-1.30 MG/DL Estimat Glomerular Filtration Rate 102 BUN/Creatinine Ratio 14 Glucose Level 192 H 70-105 MG/DL Calcium Level 9.1 8.5-10.1 MG/DL Corrected Calcium 8.9 8.5-10.1 MG/DL Total Bilirubin 1.4 H 0.1-1.0 MG/DL Aspartate Amino Transf (AST/SGOT) 20 5-34 U/L Alanine Aminotransferase (ALT/SGPT) 21 0-55 U/L Alkaline Phosphatase 99 40-136 U/L C-Reactive Protein High Sensitivity 1.23 H 0.00-0.50 MG/DL B-Type Natriuretic Peptide 36.7 <100.0 PG/ML Total Protein 8.1 6.4-8.2 GM/DL Albumin 4.3 3.2-4.5 GM/DL Lipase 12 8-78 U/L Urine Color YELLOW Urine Clarity SL CLOUDY Urine pH 7.0 5-9 Urine Specific Newborn 1.020 1.016-1.022 Urine Protein 3+ H NEGATIVE Urine Glucose (UA) NEGATIVE NEGATIVE Urine Ketones 2+ H NEGATIVE Urine Nitrite NEGATIVE NEGATIVE Urine Bilirubin NEGATIVE NEGATIVE Urine Urobilinogen 1.0 < = 1.0 MG/DL Urine Leukocyte Esterase NEGATIVE NEGATIVE Urine RBC (Auto) NEGATIVE NEGATIVE Urine RBC NONE /HPF Urine WBC NONE /HPF Urine Squamous Epithelial Cells RARE /HPF Urine Crystals PRESENT H /LPF Urine Amorphous Sediment MOD KIZZY PHOSPHATE H /LPF Urine Bacteria NEGATIVE /HPF Urine Casts NONE /LPF Urine Mucus SMALL H /LPF Urine Culture Indicated NO My Orders Orders - MERCY LONG MD Cbc And Automated Diff (09/29/23 02:10) Comprehensive Metabolic Panel (09/29/23 02:10) Hs C Reactive Protein (09/29/23 02:10) Lipase (09/29/23 02:10) Ua Culture If Indicated (09/29/23 02:10) Ed Iv/Invasive Line Start (09/29/23 02:10) Fentanyl Injection (Fentanyl Injection (09/29/23 02:15) Ondansetron Injection (Ondansetron Inj (09/29/23 02:15) O2 (09/29/23 02:13) Potassium Cl 10meq/50ml Ivpb (Kcl 10 Meq (09/29/23 03:00) Ns Iv 1000 Ml (Ns Iv 1000 Ml) (09/29/23 03:00) Ct [place] Chest/Noang Abd-Pelv W (09/29/23 03:21) Iohexol Injection (Omnipaque 350 Mg/Ml 1 (09/29/23 04:15) Received Contrast (Hold Metformin- Contr (09/29/23 04:15) Ns (Ivpb) 100 Ml (Sodium Chloride 0.9% 1 (09/29/23 04:15) Bnp [place] (09/29/23 04:12) Medications Given in ED Current Medications Medications Dose Ordered Sig/Michelle Route Start Time Stop Time Status Last Admin Dose Admin Fentanyl Citrate 50 mcg ONCE ONCE IVP 09/29/23 02:15 09/29/23 02:16 DC 09/29/23 02:25 50 MCG Iohexol 100 ml ONCE ONCE IV 09/29/23 04:15 09/29/23 04:16 DC 09/29/23 04:03 80 ML Ondansetron HCl 8 mg ONCE ONCE IVP 09/29/23 02:15 09/29/23 02:16 DC 09/29/23 02:25 8 MG Potassium Chloride 50 ml @ 50 mls/hr ONCE ONCE IV 09/29/23 03:00 09/29/23 03:59 DC 09/29/23 03:44 50 MLS/HR Sodium Chloride 100 ml ONCE ONCE IV 09/29/23 04:15 09/29/23 04:16 DC 09/29/23 04:03 70 ML Vital Signs/I&O 09/29/23 09/29/23 09/29/23 01:53 02:10 05:25 Temp 36.7 36.7 Pulse 85 76 Resp 18 16 B/P (MAP) 153/94 (113) 159/99 Pulse Ox 92 97 O2 Delivery Room Air Nasal Cannula Nasal Cannula O2 Flow Rate 2.00 2.00 Blood Pressure Mean: 113 Progress Progress Note #1: Progress Note Patient was interviewed and examined. He was initially treated with fentanyl and Zofran for symptom management. Labs were reviewed and interpreted by me. CBC was notable for a slight elevation in WBC of 12.1. CMP was notable for mild hyponatremia with sodium of 129, significant hypokalemia with potassium of 2.9, and low chloride of 88. Glucose was elevated at 192. CRP was slightly elevated at 1.23. Progress Note #2: Time: 05:24 Progress Note A sigmoid colonic obstruction was identified on CT scan. This was discussed with Dr. Sanchez, general surgeon, who recommended admission for symptom management and further investigation and/or treatment. Pain has been managed with fentanyl. Nausea was treated with Zofran. Hypokalemia with potassium of 2.9 was initially treated with potassium chloride 10 mEq IV. We will continue to replace his potassium and IV fluids with D5 half-normal saline +40 mEq of KCl. I discussed CODE STATUS with patient. He wishes to remain full code. He is agreeable to admission. Urinalysis revealed 2+ ketones but was otherwise unremarkable. Diagnostic Imaging Diagonstic Imaging: CT Plain Films/CT/US/NM/MRI: chest, abdomen, pelvis Comments CT angiogram of the chest with not angiogram CT abdomen and pelvis reviewed by me and a stat rad report reviewed. No pathology is noted in the chest on radio logist's report. CT of the abdomen interpretation reads: "Almost the entire colon is distended with gas. An abrupt transition point is located within the proximal sigmoid colon, at a surgical margin and a chronic appearing tethering/scar. No small bowel obstruction. 12 cm [place] ventral abdominal wall hernia contains several loops of small bowel. No associated bowel obstruction. No associated focal fluid collections or abscess formation. Minimal stranding within the adjacent superficial subcutaneous soft tissue." Departure Communication (Admissions) Time/Spoke to Admitting Phy: 05:00 Dr. Sanchez Impression Primary Impression: Colonic obstruction Additional Impressions: Hypoxia Hypokalemia Disposition: ADMITTED INPATIENT Condition: Stable Admissions Decision to Admit Reason: Admit from ER (General) Decision to Admit/Date: Sep 29, 2023 Time/Decision to Admit Time: 05:00 Departure-Patient Inst. Referrals: MILLA CLARK DO (PCP/Family) Primary Care Physician Copy Copies To 1: MILLA CLARK DO Copies To 2: CARLOS SANCHEZ MD, JOSHUA T MD Sep 29, 2023 02:12
[2023-09-29] MEDS ORDERED: ONDANSETRON INJECTION 4 MG/2 ML (SDV) IVP ONE (02:15)
[2023-09-29] MEDS ORDERED: fentaNYL INJECTION 100 MCG/2 ML VIAL IVP ONE ×2 (02:15→05:45)
[2023-09-29 02:35] LABS: BASOPHILS % (AUTO) 0 % (0-10); EOSINOPHILS % (AUTO) 0 % (0-10); HEMATOCRIT 40 % (40-54); HEMOGLOBIN 14.2 g/dL (13.3-17.7); LYMPHOCYTES # (AUTO) 1.7 10^3/uL (1.0-4.0); LYMPHOCYTES % (AUTO) 14 % (12-44); MEAN CORPUSCULAR HEMOGLOBIN 30 pg (25-34); MEAN CORPUSCULAR HGB CONC 36 g/dL (32-36); MEAN CORPUSCULAR VOLUME 84 fL (80-99); MONOCYTES # (AUTO) 0.5 10^3/uL (0.0-1.0); MONOCYTES % (AUTO) 4 % (0-12); NEUTROPHILS # (AUTO) 9.8 10^3/uL (1.8-7.8); NEUTROPHILS % (AUTO) 81 % (42-75); PLATELET COUNT 359 10^3/uL (130-400); WHITE BLOOD COUNT 12.1 10^3/uL (4.3-11.0)
[2023-09-29 02:42] LABS: COLOR,URINE YELLOW
[2023-09-29 02:43] LABS: GLUCOSE, URINE (UA) NEGATIVE (NEGATIVE); PROTEIN,URINE 3+ (NEGATIVE)
[2023-09-29 02:44] LABS: BILIRUBIN,URINE NEGATIVE (NEGATIVE); KETONES,URINE 2+ (NEGATIVE); LEUKOCYTE ESTERASE ,URINE NEGATIVE (NEGATIVE); NITRITE,URINE NEGATIVE (NEGATIVE)
[2023-09-29 02:46] LABS: ALBUMIN 4.3 GM/DL (3.2-4.5); POTASSIUM 2.9 MMOL/L (3.6-5.0)
[2023-09-29 02:47] LABS: CALCIUM 9.1 MG/DL (8.5-10.1)
[2023-09-29 02:49] LABS: TOTAL PROTEIN 8.1 GM/DL (6.4-8.2)
[2023-09-29 02:50] LABS: AMORPHOUS SEDIMENT,UR MOD AMOR PHOSPHATE /LPF; BACTERIA,URINE NEGATIVE /HPF; CLARITY,URINE SL CLOUDY; SQUAMOUS EPITHELIAL CELL,UR RARE /HPF
[2023-09-29 02:50] LABS: BILIRUBIN,TOTAL 1.4 MG/DL (0.1-1.0)
[2023-09-29 02:52] LABS: CREATININE SERUM 0.76 MG/DL (0.60-1.30)
[2023-09-29] MEDS ORDERED: POTASSIUM CL 10MEQ/50ML IVPB 50 ML IV ONE (03:00)
[2023-09-29] MEDS ORDERED: NS IV 1000 ML 1,000 ML IV SCH (03:00)
[2023-09-29] MEDS ORDERED: IOHEXOL 350 MG/ML 100 ML (OMNIPAQUE 350) VIAL IV ONE (04:15)
[2023-09-29] MEDS ORDERED: HOLD METFORMIN - RECEIVED CONTRAST 20 ML VIAL IV SCH (04:15)
[2023-09-29] MEDS ORDERED: NS 100 ML (IVPB) BAG IV ONE (04:15)
[2023-09-29 05:56] VITALS: BP 158/90
[2023-09-29] MEDS ORDERED: D5 1/2NS + KCL 40 MEQ/L 1000ML 1,000 ML IV SCH (06:30)
[2023-09-29] MEDS ORDERED: ONDANSETRON INJECTION 4 MG/2 ML (SDV) IV PRN (06:30)
[2023-09-29] MEDS ORDERED: morphine INJ 4 MG/ML 1 ML (VIAL/SYRINGE) IV PRN (06:30)
[2023-09-29] MEDS ORDERED: FLU QUADRIvalent (6 months+) 60 mcg/0.5 ml 2023-2024 (FLUARIX) IM ONE (06:45)
--- NOTE | 2023-09-29 07:27 | Diagnostic Imaging Report ---
Exam: CTA chest, abdomen and pelvis Thin axial sections through the chest, abdomen and pelvis are obtained following intravenous contrast bolus. Multiplanar MIP images were reconstructed and reviewed. All CT scans use one or more of the following dose optimizing techniques: automated exposure control, MA and/or KvP adjustment based on patient size and exam type or iterative reconstruction. Date: September 29, 2023. Indication: 62-year-old male, chest and abdominal pain. Hypoxia. Hernia. Comparisons: CT abdomen pelvis April 30, 2023. Findings: There is atelectasis in the right upper lobe and right lower lobe. There is atelectasis in the left lower lobe and left upper lobe. There are some motion limitations of the exam. There is no identified pulmonary nodule or lung mass. There is no additional focal airspace consolidation. There is no pneumothorax. There is no pleural effusion. There is no identified pulmonary embolus. The heart is not grossly enlarged. There is no identified pericardial effusion. There is no identified abnormally enlarged mediastinal, hilar, or axillary lymph node meeting CT size criteria for adenopathy. The liver is unremarkable in size and contour. There is diffuse fatty infiltration of the liver. There is no identified liver lesion. The main, right, and left portal veins are patent. The gallbladder is grossly unremarkable. There is no biliary ductal dilation. Unremarkable appearance of the pancreas and spleen. The adrenal glands are unremarkable. Unremarkable appearance of the renal parenchyma. The urinary collecting systems are not distended. There is no identified renal or ureteral stone. Urinary bladder is grossly unremarkable. There are sutures at the level of the mid sigmoid colon. There is distention of the colon proximal to the level of the sutures with the right colon measuring up to approximately 8.7 cm in diameter. The appendix is unremarkable. There is no particularly prominent wall thickening of bowel of the site of the sutures at the level of the mid sigmoid colon. There is an anterior abdominal wall hernia containing segments of small bowel without associated obstruction or other complication. There is no free intraperitoneal air. There is no drainable fluid collection. There is no free fluid in the abdomen or pelvis. There are atherosclerotic calcifications. There is no identified abnormally enlarged lymph node in the abdomen or pelvis which meets CT size criteria for adenopathy. There are multilevel degenerative changes of the spine. There is no identified acute bony abnormality. Impression: 1. Prominent colonic distention with transition point at level of sutures at the level of the mid sigmoid colon without clearly identified bowel wall thickening at this location. This likely relates to colonic obstruction at this level. 2. No identified pulmonary embolus or other acute cardiopulmonary abnormality. 3. Anterior abdominal wall hernia containing small bowel without associated obstruction specifically at this site or other complication of the hernia. Dictated by: Dictated on workstation # [id number]
[2023-09-29 07:28] VITALS: BP 165/90
[2023-09-29] MEDS ORDERED: PANTOPRAZOLE INJECTION 40 MG VIAL IV SCH (09:00)
[2023-09-29] MEDS ORDERED: CHOL20002 PO (10:16)
[2023-09-29] MEDS ORDERED: L.AC1CAP6 PO (10:16)
[2023-09-29] MEDS ORDERED: ZINC50TA11 PO (10:16)
[2023-09-29 11:40] VITALS: BP 143/85
[2023-09-29 12:29] VITALS: BP 143/85
--- NOTE | 2023-09-29 13:39 | Progress Note ---
Standard Progress Note Progress Notes/Assess & Plan Date Seen by a Provider: Sep 29, 2023 Time Seen by a Provider: 12:00 Progress/Assessment & Plan Patients wish was to be transferred to [facility] and admitted by dr. Ardon. Patient stable and ambulating well with adequate pain control. Patient made arrangements with admitting physician on own. CARLOS GODFREY MD Sep 29, 2023 13:39
== END 2023-09-29 11:01 | disposition other institution, planned readmission (95) ==
LOC: EDUNIT# 01:42 → ER 01:44 → UNDOADMOB 05:29 → 4TH 05:29 → UNDODISOB 12:29
PROVIDERS: ADMIT Surgery; ATTEND Surgery
DX: K56.609 Unspecified intestinal obstruction, unspecified as to partial versus complete obstruction (principal); R09.02 Hypoxemia; E87.6 Hypokalemia; Z90.49 Acquired absence of other specified parts of digestive tract; Z98.890 Other specified postprocedural states
CPT/HCPCS: 71275; 74177; 80053; 81000; 83690; 83880; 85025; 86141; 96361; 96374; 96375 ×2; 96376; 99284; G0378; 36415